=== PATIENT | female | born 1945 | race Caucasian/White ===

== ENCOUNTER 2019-02-24 06:48 | Observation (INO) | payer OTHER ==
--- OUTSIDE RECORDS SUMMARY | 2019-02-24 06:57 | XMS REPORT ---
:1945 Author Organization [facility] Address [address] [place] [address] Dr. Tocsano [address] [place] [id number] Care Team Providers Name Role Phone Unavailable Unavailable Unavailable Problems This patient has no known problems. Allergies, Adverse Reactions, Alerts This patient has no known allergies or adverse reactions. Medications This patient has no known medications.
[2019-02-24] MEDS ORDERED: ALBUTEROL 2.5 MG/3 ML NEB SOL ONE (07:19)
[2019-02-24] MEDS ORDERED: METHYLPREDNISOLONE 40 MG INJ ONE (07:20)
[2019-02-24] MEDS ORDERED: IPRATROPIUM BROM 0.5MG/2.5ML ONE (07:20)
--- NOTE | 2019-02-24 07:48 | EKG ---
Test Date: 2019-02-24 Test Time: 07:22:43 Rn House Supervisor: YARIEL MEASUREMENT RESULTS: Intervals: Rate: 75 MO: 148 QRSD: 72 QT: 408 QTc: 455 [place]: P: 46 MO: 148 QRS: 35 T: 81 INTERPRETIVE STATEMENTS: Normal sinus rhythm Nonspecific ST and T wave abnormality Abnormal ECG No previous ECG available for comparison Electronically Signed On 02-24-19 07:48:24 CDT by Jesus Lowery
[2019-02-24 08:14] LABS: ALT/SGPT 85 U/L (12-78); AST/SGOT 53 U/L (15-37); Absolute Lymphocytes (CBC) 1.3 K/uL (0.7-4.9); Absolute Monocytes 0.7 K/uL (0.1-1.3); Absolute Neutrophil 5.9 K/uL (1.8-8.0); Albumin 3.3 g/dL (3.4-5.0); Alkaline Phosphatase 95 U/L (45-117); BUN Blood Urea Nitrogen 26 mg/dL (7-18); Basophils % 0.6 % (0-1.3); Bicarbonate 24 mmol/L (21-32); Bilirubin Direct 0.2 mg/dL (0-0.2); Bilirubin Total 0.7 mg/dL (0.2-1.0); Eosinophils % 2.7 % (0-4.4); Glucose Level 87 mg/dL (74-106); Lymphocytes % 16.2 % (15.3-44.8); Magnesium 2.1 mg/dL (1.8-2.4); Monocytes % 9.1 % (3.3-12.3); NT PRO-BNP 8962 pg/mL (<125); Protein, Total 6.8 g/dL (6.4-8.2); RBC Red Blood Cell Count 3.66 M/uL (3.86-4.86); Sodium Level 133 mmol/L (136-145); Troponin (Emerg Dept Use Only) < 0.02 ng/mL (0.0-0.045)
[2019-02-24 08:17] LABS: Protime INR 1.12
--- NOTE | 2019-02-24 08:20 | RAD REPORT ---
EXAM DESCRIPTION: US - Extrem Venous W Compress Tomi - 02/24/2019 7:41 am CLINICAL HISTORY: SWELLING Bilateral leg edema and swelling. COMPARISON: No comparisons TECHNIQUE: Real-time sonographic interrogation of the left and right lower extremity deep venous sys tems was performed. FINDINGS: Normal compressibility, flow augmentation, phasic flow and spontaneous flow is identified in both the left and right lower extremity deep venous systems. IMPRESSION: No sonographic evidence of left or right lower extremity deep venous thrombosis.
[2019-02-24] MEDS ORDERED: FUROSEMIDE 20 MG/ 2ML VIAL ONE (08:54)
--- NOTE | 2019-02-24 08:56 | RAD REPORT ---
EXAM DESCRIPTION: RAD - Chest Single View - 02/24/2019 8:30 am CLINICAL HISTORY: SOB Chest pain. COMPARISON: Chest Pa And Lat (2 Views) dated 02/17/2019; Chest Pa And Lat (2 Views) dated 12/02/2018; C hest Pa And Lat (2 Views) dated 11/04/2018; Chest Pa And Lat (2 Views) dated 10/15/2018 FINDINGS: Portable technique limits examination quality. Moderate bilateral pulmonary opacities are present with small bilateral pleural effusions. The heart is mildly prominent size. The findings may indicate CHF/volume overload.
--- NOTE | 2019-02-24 09:31 | RAD REPORT ---
EXAM DESCRIPTION: CT - Chest For Pe Angio - 02/24/2019 8:57 am CLINICAL HISTORY: Chest pain. SOB COMPARISON: No comparisons TECHNIQUE: CT angiogram of the pulmonary arteries was performed with MIP. All CT scans are performed using dose optimization technique as appropriate and may include automated exposure control or mA/KV adjustment according to patient size. FINDINGS: No evidence of pulmonary thromboembolism. The thoracic aorta is suboptimally contrast opacified. Moderate bilateral pulmonary opacities with ground-glass characteristics as well as interlobular sept al thickening inferiorly noted. Moderate bilateral pleural effusions. No concerning bony finding. IMPRESSION: No evidence of pulmonary thromboembolism. Moderate CHF versus volume overload pattern.
--- NOTE | 2019-02-24 10:41 | ER ---
Nurse's Notes [facility] Name: Gabbie Rich Age: 73 yrs Sex: Female : 1945 Arrival Date: 02/24/2019 Time: 06:50 Bed 7 Private MD: Harjit Jefferson Diagnosis: Dyspnea;Unspecified combined systolic (congestive) and diastolic (congestive) heart failure;Pleural effusion, not elsewhere classified-bilateral Presentation: 02/24 06:59 Presenting complaint: Patient states: Pt reports she has been short of breath for the ea past three months. Pt reports she saw Dr. Lowery yesterday, reported symptoms started this AM. Transition of care: patient was not received from another setting of care. Onset of symptoms was February 24, 2019. Risk Assessment: Do you want to hurt yourself or someone else? Patient reports no desire to harm self or others. Initial Sepsis Screen: Does the patient meet any 2 criteria? No. Patient's initial sepsis screen is negative. Does the patient have a suspected source of infection? No. Patient's initial sepsis screen is negative. Care prior to arrival: None. 06:59 Method Of Arrival: Wheelchair ea 06:59 Acuity: SENAIT 3 ea Triage Assessment: 07:07 General: Appears uncomfortable, Behavior is calm, cooperative, appropriate for age. ea Pain: Denies pain. Respiratory: Reports shortness of breath Onset: The symptoms/episode began/occurred today, the patient has moderate shortness of breath. Historical: - Allergies: 07:06 No Known Allergies; ea - Home Meds: 07:57 Advair Diskus 100-50 mcg/dose inhalation dsdv 1 puff [Active]; ropinirole 2 mg oral tab tw2 1 tab per day [Active]; levothyroxine 50 mcg tab 1 tab once daily [Active]; Aleve 220 mg Oral tab 1 tab every 12 hours [Active]; metoprolol tartrate 25 mg Oral tab 1 tab once daily [Active]; alendronate 35 mg oral tab 1 tab once wkly [Active]; multivitamin oral tab [Active]; prednisone 10 mg Oral tab 1 tab 3 times per day [Active]; albuterol sulfate 90 mcg/actuation Inhl HFAA 1 puff every 4-6 hours [Active]; - PMHx: 07:06 Hypertension; Hypothyroidism; restless leg syndrome; ea - PSHx: 07:06 right hip replacement; Hysterectomy; ea - Immunization history:: Adult Immunizations up to date. - Social history:: Smoking status: . - Ebola Screening: : No symptoms or risks identified at this time. Screenin:03 Abuse screen: Denies threats or abuse. Nutritional screening: No deficits noted. ea Tuberculosis screening: No symptoms or risk factors identified. Fall Risk None identified. Assessment: 06:55 Reassessment: pt placed on o2 at 2L via nc at this time, will continue to monitor. tw2 06:56 General: Appears in no apparent distress. slender, well groomed, Behavior is calm, tw2 cooperative, appropriate for age. Pain: Denies pain. Neuro: Level of Consciousness is awake, alert, obeys commands, Oriented to person, place, time, situation. Cardiovascular: Heart tones S1 S2 Patient's skin is warm and dry. Rhythm is regular. Cardiovascular: Edema is 2+ to left ankle, left foot, left toes, right ankle, right foot and right toes. Respiratory: Reports shortness of breath at rest on exertion Airway is patent Respiratory effort is even, labored, pursed lip, Respiratory pattern is regular, tachypnea Breath sounds with wheezes bilaterally. GI: No signs and/or symptoms were reported involving the gastrointestinal system. Abdomen is flat, Bowel sounds present X 4 quads. : No signs and/or symptoms were reported regarding the genitourinary system. EENT: No signs and/or symptoms were reported regarding the EENT system. Derm: No signs and/or symptoms reported regarding the dermatologic system. Musculoskeletal: Range of motion: intact in all extremities. 07:51 Reassessment: Patient appears in no apparent distress at this time. Patient and/or tw2 family updated on plan of care and expected duration. Pain level reassessed. 08:45 Reassessment: Patient appears in no apparent distress at this time. Patient and/or tw2 family updated on plan of care and expected duration. Pain level reassessed. 09:29 Reassessment: Patient appears in no apparent distress at this time. No changes from tw2 previously documented assessment. Patient and/or family updated on plan of care and expected duration. Pain level reassessed. 10:20 Reassessment: Patient appears in no apparent distress at this time. No changes from tw2 previously documented assessment. Patient and/or family updated on plan of care and expected duration. Pain level reassessed. 11:33 Reassessment: Patient appears in no apparent distress at this time. Patient and/or tw2 family updated on plan of care and expected duration. Pain level reassessed. Patient is alert, oriented x 3, equal unlabored respirations, skin warm/dry/pink. Patient states feeling better. Patient states symptoms have improved. 12:37 Reassessment: Patient appears in no apparent distress at this time. No changes from tw2 previously documented assessment. Patient is alert, oriented x 3, equal unlabored respirations, skin warm/dry/pink. Vital Signs: 07:04 BP 166 / 88; Pulse 76; Resp 26; Temp 97.5; Pulse Ox 96% on R/A; Weight 45.36 kg; Height ea 5 ft. (152.40 cm); 07:51 BP 169 / 97; Pulse 79; Resp 24; Pulse Ox 97% on 2 lpm NC; tw2 08:49 BP 158 / 87; Pulse 78; Resp 24; Temp 97.8(TE); Pulse Ox 98% on 2 lpm NC; tw2 09:29 BP 149 / 87; Pulse 74; Resp 22; Pulse Ox 95% on 2 lpm NC; tw2 10:19 BP 134 / 75; Pulse 84; Resp 22; Pulse Ox 97% on 2 lpm NC; em1 11:33 BP 151 / 85; Pulse 84; Resp 17; Pulse Ox 99% on 2 lpm NC; tw2 12:37 BP 147 / 74; Pulse 76; Resp 17; Pulse Ox 95% on 2 lpm NC; tw2 07:04 Body Mass Index 19.53 (45.36 kg, 152.40 cm) ea ED Course: 06:50 Patient arrived in ED. am2 06:50 Harjit Jefferson MD is Private Physician. am2 06:56 [facility] cp 06:56 Olman Cuenca MD is Attending Physician. cp 07:03 Triage completed. ea 07:04 Patient has correct armband on for positive identification. Bed in low position. Call ea light in reach. Adult w/ patient. 07:04 Arm band placed on right wrist. Patient placed in an exam room, on a stretcher, on ea pulse oximetry. 07:05 Maude Klein, RN is Primary Nurse. tw2 07:12 Inserted saline lock: 22 gauge in left antecubital area, using aseptic technique. Blood tw2 collected. 07:14 Radiology exam delayed due to IV insertion attempt and/or patient not having ls3 appropriate IV at this time. 07:42 US Extremity Venous W Compression Tomi In Process Unspecified. EDMS 07:49 Jordy Liu MD is Attending Physician. cp 08:28 XRAY Chest (1 view) In Process Unspecified. EDMS 08:29 X-ray completed. Portable x-ray completed in exam room. Patient tolerated procedure mh1 well. 08:31 Notified ED physician of a critical lab result(s). D-Dimer [id number], notified JEFF Velasquez at tw2 this time. 08:54 CT completed. Patient tolerated procedure well. Patient moved to CT via stretcher. sj Patient moved back from CT. 08:57 CT Chest For PE Angio In Process Unspecified. EDMS 10:39 Harjit Jefferson MD is Hospitalizing Provider. cp 12:03 Awaiting: unsuccessful attempt at calling report at this time. tw2 12:33 No provider procedures requiring assistance completed. Patient admitted, IV remains in tw2 place. Administered Medications: 07:10 Drug: Albuterol - atroVENT (3:1) (2.5 mg - 0.5 mg) 3 ml Route: Nebulizer; tw2 07:52 Follow up: Response: No adverse reaction tw2 07:13 Drug: SOLU-Medrol 60 mg Route: IVP; Site: left antecubital; tw2 07:52 Follow up: Response: No adverse reaction tw2 08:45 Drug: Lasix 20 mg Route: IVP; Site: left antecubital; tw2 11:37 Follow up: Response: No adverse reaction tw2 11:15 Drug: Aspirin Chewable Tablet 324 mg Route: PO; sg 11:34 Follow up: Response: No adverse reaction tw2 Output: 11:00 Urine: 800ml (Voided); Total: 800ml. tw2 Outcome: 10:40 Decision to Hospitalize by Provider. cp 12:35 Admitted to Med/surg accompanied by tech, via wheelchair, room 217, Report called to tw2 VENUS Epstein 12:35 Condition: stable 12:35 Instructed on the need for admit. 12:59 Patient left the ED. lt1 Signatures: Dispatcher [employer] EDMS Zack Mccallum RN RN Christina Park RN RN aa1 Lisa Lombardi mh1 Shu Decker, Celso burleson1 Home Hastings PA PA cp Wise, Tara, RN RN tw2 Chad, Angy am2 Daisy Barba RN RN ea Siler, Lynzie ls3 Browne, Peg lt1 Corrections: (The following items were deleted from the chart) : 07:13 SOLU-Medrol 60 mg IVP in left antecubital aa1 tw2 : 07:10 Albuterol - atroVENT (3:1) (2.5 mg - 0.5 mg) 3 ml Nebulizer aa1 tw2 : 07:12 Inserted saline lock: 22 gauge in left antecubital area, using aseptic technique. tw2 Blood collected. aa10 19: 06:55 General: Appears in no apparent distress. slender, well groomed, Behavior is tw2 calm, cooperative, appropriate for age, aa 06:55 Pain: Denies pain. aa1 tw2 : 06:55 Neuro: Level of Consciousness is awake, alert, obeys commands, Oriented to tw2 person, place, time, situation, aa1 : 06:55 Cardiovascular: Heart tones S1 S2 Patient's skin is warm and dry. Rhythm is tw2 regular aa 06:55 Respiratory: Reports shortness of breath at rest on exertion Airway is patent tw2 Respiratory effort is even, labored, pursed lip, Respiratory pattern is regular, tachypnea Breath sounds with wheezes bilaterally. aa10 19: 06:55 GI: No signs and/or symptoms were reported involving the gastrointestinal system. tw2 Abdomen is flat, Bowel sounds present X 4 quads. aa 06:55 : No signs and/or symptoms were reported regarding the genitourinary system. aa1tw2 : 06:55 Cardiovascular: Edema is 2+ to left ankle, left foot, left toes, right ankle, tw2 right foot and right toes aa 06:55 EENT: No signs and/or symptoms were reported regarding the EENT system. aa1 tw2 07:33 06:55 Derm: No signs and/or symptoms reported regarding the dermatologic system. aa1 tw2 07:33 06:55 Musculoskeletal: Range of motion: intact in all extremities, aa1 tw2 07:58 07:06 Home Meds: Advair Diskus Inhl; ea tw2 08:51 08:50 Initial lab(s) drawn, by me, sent to lab. em1 em1 12:38 07:51 Reassessment: Patient appears in no apparent distress at this time. Patient tw2 and/or family updated on plan of care and expected duration. Pain level reassessed. Patient is alert, oriented x 3, equal unlabored respirations, skin warm/dry/pink. tw2 12: 08:45 Reassessment: Patient appears in no apparent distress at this time. Patient tw2 and/or family updated on plan of care and expected duration. Pain level reassessed. Patient is alert, oriented x 3, equal unlabored respirations, skin warm/dry/pink. tw2 09:29 Reassessment: Patient appears in no apparent distress at this time. No changes tw2 from previously documented assessment. Patient and/or family updated on plan of care and expected duration. Pain level reassessed. Patient is alert, oriented x 3, equal unlabored respirations, skin warm/dry/pink. tw2 : 10:20 Reassessment: Patient appears in no apparent distress at this time. No changes tw2 from previously documented assessment. Patient and/or family updated on plan of care and expected duration. Pain level reassessed. Patient is alert, oriented x 3, equal unlabored respirations, skin warm/dry/pink. tw2
--- NOTE | 2019-02-24 10:42 | EDPHYS ---
Physician Documentation [facility] Name: Gabbie Rich Age: 73 yrs Sex: Female : 1945 Arrival Date: 02/24/2019 Time: 06:50 Bed 7 Private MD: Harjit Jefferson ED Physician Jordy Liu HPI: 02/24 07:05 This 73 yrs old Female presents to ER via Wheelchair with complaints of cp Breathing Difficulty. 07:05 The patient has shortness of breath at rest, while talking. Onset: The symptoms/episode cp began/occurred gradually, and became worse last night. Duration: The symptoms are continuous, and are steadily getting worse. The patient's shortness of breath is aggravated by talking. Associated signs and symptoms: Pertinent negatives: productive cough, diaphoresis, fever, hemoptysis, numbness in extremities, vomiting. Severity of symptoms: in the emergency department the symptoms are unchanged despite home interventions. The patient has experienced similar episodes in the past, a few times, but today's symptoms are worse. The patient has been recently seen by a physician: Dr. Perez with similar presenting complaints, referred to cardiology and was seen by DR Lowery yesterday, but the patient's symptoms have worsened. Historical: - Allergies: 07:06 No Known Allergies; ea - Home Meds: 07:57 Advair Diskus 100-50 mcg/dose inhalation dsdv 1 puff [Active]; ropinirole 2 mg oral tab tw2 1 tab per day [Active]; levothyroxine 50 mcg tab 1 tab once daily [Active]; Aleve 220 mg Oral tab 1 tab every 12 hours [Active]; metoprolol tartrate 25 mg Oral tab 1 tab once daily [Active]; alendronate 35 mg oral tab 1 tab once wkly [Active]; multivitamin oral tab [Active]; prednisone 10 mg Oral tab 1 tab 3 times per day [Active]; albuterol sulfate 90 mcg/actuation Inhl HFAA 1 puff every 4-6 hours [Active]; - PMHx: 07:06 Hypertension; Hypothyroidism; restless leg syndrome; ea - PSHx: 07:06 right hip replacement; Hysterectomy; ea - Immunization history:: Adult Immunizations up to date. - Social history:: Smoking status: . - Ebola Screening: : No symptoms or risks identified at this time. ROS: 07:10 Constitutional: Negative for body aches, chills, fever, poor PO intake. cp 07:10 Eyes: Negative for injury, pain, redness, and discharge. cp 07:10 ENT: Negative for drainage from ear(s), ear pain, sore throat, difficulty swallowing, difficulty handling secretions. 07:10 Cardiovascular: Positive for edema, Negative for chest pain, palpitations. 07:10 Respiratory: Positive for shortness of breath, at rest. Negative for cough, hemoptysis, wheezing. 07:10 Abdomen/GI: Negative for abdominal pain, nausea, vomiting, and diarrhea, constipation, black/tarry stool, rectal bleeding. 07:10 Back: Negative for pain at rest, pain with movement. 07:10 : Negative for urinary symptoms. 07:10 Skin: Negative for cellulitis, rash. 07:10 Neuro: Negative for altered mental status, headache, weakness. 07:10 All other systems are negative. Exam: 07:15 Constitutional: The patient appears in no acute distress, alert, awake, cp non-diaphoretic, non-toxic, well developed, well nourished, uncomfortable. 07:15 Head/Face: Normocephalic, atraumatic. cp 07:15 Eyes: Periorbital structures: appear normal, Pupils: equal, round, and reactive to light and accomodation, Extraocular movements: intact throughout, Conjunctiva: normal, no exudate, no injection, Sclera: no appreciated abnormality, Lids and lashes: appear normal, bilaterally. 07:15 ENT: External ear(s): are unremarkable, Ear canal(s): are normal, clear, TM's: bulging, is not appreciated, bilaterally, dullness, bilaterally, erythema, is not appreciated, bilaterally, Nose: is normal, Mouth: Lips: moist, Oral mucosa: pink and intact, moist, Posterior pharynx: is normal, airway is patent, no erythema, no exudate. 07:15 Neck: ROM/movement: is normal, is supple, without pain, no range of motions limitations, no meningismus, no nuchal rigidity. 07:15 Chest/axilla: Inspection: normal, Palpation: is normal, no crepitus, no tenderness. 07:15 Cardiovascular: Rate: normal, Rhythm: regular, Edema: ankle edema, that is mild, JVD: is not appreciated. 07:15 Respiratory: the patient does not display signs of respiratory distress, Respirations: labored breathing, that is mild, intercostal retractions, are absent, tachypnea, that is mild, Breath sounds: decreased breath sounds, that are moderate, throughout, stridor, is not appreciated, wheezing: that is mild, is heard diffusely, Respiratory rate: 26 07:15 Abdomen/GI: Inspection: abdomen appears normal, Bowel sounds: active, all quadrants, Palpation: abdomen is soft and non-tender, in all quadrants, rebound tenderness, is not appreciated, voluntary guarding, is not appreciated, involuntary guarding, is not appreciated. 07:15 Back: pain, is absent, ROM is normal. 07:15 Skin: cellulitis, is not appreciated, no rash present. 07:15 Neuro: Orientation: to person, place \T\ time. Mentation: is normal, Cerebellar function: is grossly normal, Motor: moves all fours, strength is normal, Sensation: is normal. 07:31 ECG was reviewed by the Attending Physician. cp Vital Signs: 07:04 BP 166 / 88; Pulse 76; Resp 26; Temp 97.5; Pulse Ox 96% on R/A; Weight 45.36 kg; Height ea 5 ft. (152.40 cm); 07:51 BP 169 / 97; Pulse 79; Resp 24; Pulse Ox 97% on 2 lpm NC; tw2 08:49 BP 158 / 87; Pulse 78; Resp 24; Temp 97.8(TE); Pulse Ox 98% on 2 lpm NC; tw2 09:29 BP 149 / 87; Pulse 74; Resp 22; Pulse Ox 95% on 2 lpm NC; tw2 10:19 BP 134 / 75; Pulse 84; Resp 22; Pulse Ox 97% on 2 lpm NC; em1 11:33 BP 151 / 85; Pulse 84; Resp 17; Pulse Ox 99% on 2 lpm NC; tw2 12:37 BP 147 / 74; Pulse 76; Resp 17; Pulse Ox 95% on 2 lpm NC; tw2 07:04 Body Mass Index 19.53 (45.36 kg, 152.40 cm) ea MDM: 07:02 Patient medically screened. cp 09:39 Data reviewed: vital signs, nurses notes, lab test result(s), EKG, radiologic studies, cp CT scan, plain films, ultrasound. 09:40 Physician consultation: Harjit Jefferson MD was called at 09:40, left message on cp voicemail. 10:13 Physician consultation: Harjit Jefferson MD was called at 10:14, left message on cp voicemail. 10:38 Physician consultation: Harjit Jefferson MD was contacted at 10:38, regarding admission, cp to the telemetry unit. patient's condition, and will see patient in inpatient room, later today. 02/24 07:03 Order name: Basic Metabolic Panel cp 02/24 07:03 Order name: CBC with Diff cp 02/24 07:03 Order name: LFT's; Complete Time: 08:33 cp 02/24 08:33 Interpretation: Normal except: AST 53; ALT 85; ALB 3.3; A/G 0.9. 02/24 07:03 Order name: Magnesium; Complete Time: 08:33 cp 02/24 07:03 Order name: NT PRO-BNP; Complete Time: 08:33 cp 02/24 07:03 Order name: PT-INR; Complete Time: 08:33 cp 02/24 07:03 Order name: Troponin (emerg Dept Use Only); Complete Time: 08:33 cp 02/24 07:03 Order name: XRAY Chest (1 view); Complete Time: 09:14 cp 02/24 07:03 Order name: US Extremity Venous W Compression Tomi; Complete Time: 08:33 cp 02/24 07:04 Order name: D-Dimer; Complete Time: 08:33 cp 02/24 07:05 Order name: Basic Metabolic Panel; Complete Time: 08:33 EDMS 02/24 07:05 Order name: CBC with Automated Diff; Complete Time: 08:33 EDMS 02/24 08:33 Interpretation: Normal except: RBC 3.66; HGB 9.1; HCT 29.0; MCV 79.2; MCH 25.0; MCHC cp 31.5; PLT 472; RDW 19.6. 02/24 10:55 Order name: Troponin I EDMS 02/24 10:55 Order name: Troponin I EDNV 02/24 07:03 Order name: EKG; Complete Time: 07:05 cp 02/24 07:03 Order name: Cardiac monitoring; Complete Time: 07:07 cp 02/24 07:03 Order name: EKG - Nurse/Tech; Complete Time: 07:21 cp 02/24 07:03 Order name: IV Saline Lock; Complete Time: 07:21 cp 02/24 07:03 Order name: Labs collected and sent; Complete Time: 07:21 cp 02/24 07:03 Order name: O2 Per Protocol; Complete Time: 07:06 cp 02/24 07:03 Order name: O2 Sat Monitoring; Complete Time: 07:06 cp 02/24 08:37 Order name: CT Chest For PE Angio; Complete Time: 09:38 cp 02/24 10:56 Order name: CONS Physician Consult EDNV 02/24 10:56 Order name: Low Sodium EDNV 02/24 10:56 Order name: Echo with Doppler EDNV 02/24 10:56 Order name: EKG Electrocardiogram EDMS EC:31 Rate is 75 beats/min. Rhythm is regular. MT interval is normal. QRS interval is normal. cp QT interval is normal. Interpreted by me. Reviewed by me. Administered Medications: 07:10 Drug: Albuterol - atroVENT (3:1) (2.5 mg - 0.5 mg) 3 ml Route: Nebulizer; tw2 07:52 Follow up: Response: No adverse reaction tw2 07:13 Drug: SOLU-Medrol 60 mg Route: IVP; Site: left antecubital; tw2 07:52 Follow up: Response: No adverse reaction tw2 08:45 Drug: Lasix 20 mg Route: IVP; Site: left antecubital; tw2 11:37 Follow up: Response: No adverse reaction tw2 11:15 Drug: Aspirin Chewable Tablet 324 mg Route: PO; sg 11:34 Follow up: Response: No adverse reaction tw2 Disposition: 15:12 Co-signature as Attending Physician, Jordy Liu MD. rn Disposition: 02/24/19 10:40 Hospitalization ordered by Harjit Jefferson for Inpatient Admission. Preliminary diagnosis are Dyspnea, Unspecified combined systolic (congestive) and diastolic (congestive) heart failure, Pleural effusion, not elsewhere classified - bilateral. - Bed requested for Telemetry/MedSurg (Inpatient). - Status is Inpatient Admission. lt1 - Condition is Stable. - Problem is new. - Symptoms have improved. UTI on Admission? No Signatures: Dispatcher [employer] EDMS Zack Mccallum, RN VENUS Christina Park RN RN aa1 Jordy Liu MD MD rn Calderon, Audri RN RN aa5 Home Hastings PA PA Maude Moody RN RN tw2 Daisy Barba RN RN ea Browne, Peg lt1 Corrections: (The following items were deleted from the chart) 07:58 07:06 Home Meds: Advair Diskus Inhl; ea tw2 11:59 10:40 Hospitalization Ordered by Harjit Jefferson MD for Inpatient Admission. Preliminary aa5 diagnosis is Dyspnea; Unspecified combined systolic (congestive) and diastolic (congestive) heart failure; Pleural effusion, not elsewhere classified - bilateral. Bed requested for Telemetry/MedSurg (Inpatient). Status is Inpatient Admission. Condition is Stable. Problem is new. Symptoms have improved. UTI on Admission? No. cp 12:59 11:59 02/24/2019 10:40 Hospitalization Ordered by Harjit Jefferson MD for Inpatient lt1 Admission. Preliminary diagnosis is Dyspnea; Unspecified combined systolic (congestive) and diastolic (congestive) heart failure; Pleural effusion, not elsewhere classified - bilateral. Bed requested for Telemetry/MedSurg (Inpatient). Status is Inpatient Admission. Condition is Stable. Problem is new. Symptoms have improved. UTI on Admission? No. aa5
[2019-02-24] MEDS ORDERED: ASPIRIN 81 MG CHEWABLE TABLET ONE (11:22)
--- NOTE | 2019-02-24 14:55 | ECHO ---
HEIGHT: 5 ft 0 in WEIGHT: 101 lb 1.6 oz DATE OF STUDY: 02/24/[address]: Jesus Lowery MD 2-DIMENSIONAL: YES M.MODE: YES DOPPLER: YES COLOR FLOW: YES TDS: NO PORTABLE: NO DEFINITY: NO BUBBLE STUDY: NO DIAGNOSIS: CONGESTIVE HEART FAILURE CARDIAC HISTORY: CATHERIZATION: NO SURGERY: NO PROSTHETIC VALVE: NO PACEMAKER: NO MEASUREMENTS (cm) DIASTOLIC (NORMALS) SYSTOLIC (NORMALS) IVSd 0.9 (0.6-1.2) LA Diam 3.5 (1.9-4.0) LVEF 43% LVIDd 4.1 (3.5-5.7) LVIDs 3.2 (2.0-3.5) %FS 21% LVPWd 1.0 (0.6-1.2) Ao Diam 2.9 (2.0-3.7) 2 DIMENSIONAL ASSESSMENT: RIGHT ATRIUM: DILATED LEFT ATRIUM: DILATED RIGHT VENTRICLE: DILATED LEFT VENTRICLE: NORMAL TRICUSPID VALVE: NORMAL MITRAL VALVE: NORMAL PULMONIC VALVE: NORMAL AORTIC VALVE: NORMAL PERICARDIAL EFFUSION: NONE AORTIC ROOT: NORMAL LEFT VENTRICULAR WALL MOTION: MILD GLOBAL HYPOKINESIS. DOPPLER/COLOR FLOW: MILD MITRAL REGURGITATION. MODERATE TRICUSPID REGURGITATION. ESTIMATED RIGHT VENTRICULAR SYSOLIC PRESSURE 52mmHg. MODERATE PULMONARY HYPERTENSION. COMMENTS: MILDY DEPRESSED LEFT VENTRICULAR EJECTION FRACTION. DILATED LEFT ATRIUM, RIGHT ATRIUM AND RIGHT VENTRICLE. MILD MITRAL REGURGITATION. MODERATE TRICUSPID REGURGITATION. MODERATE PULMONARY HYPERTENSION. TECHNOLOGIST: Maya MACIAS
[2019-02-24] MEDS: ALBUTEROL 2.5 MG/3 ML NEB SOL NEB SCH ×2 (15:50→20:00)
[2019-02-24] MEDS: IPRATROPIUM BROM 0.5MG/2.5ML NEB SCH ×2 (15:50→20:00)
--- NOTE | 2019-02-24 16:14 | CON ---
History Of Present Illness: Ms. Rich is 73. She came to the hospital because of shortness of b reath. Her shortness of breath has been present since September 2018. There was 1 instance of pneumo jason and since then she has never really recovered. The bacterial infection seems to have been treate d, but there is scarring in the lungs in the area of the old pneumonia and some scarring elsewhere, i nterstitial markings that are sometimes called edema by the radiologists, but could also be interstit ial fibrosis. The patient has never been a cigarette smoker. She has mild lung disease most of her life, now it is very severe. She has been unable to breathe for 4 months or longer. I do not know i f she has ever had testing to see if she had alpha 1 antitrypsin deficiency, but her lungs really loo ks like typical emphysematous type lungs. There is hyperinflation, flattened diaphragms, and a diffu se interstitial pattern that could of course be interstitial fluid, but that might also be fibrosis. Last night she came in because her breathing was worse. She got frightened. She did not require in tubation and looks very much like she did when I saw her in the office a few days ago. Since she has been here her chest x-ray shows the findings we have discussed. The troponin is normal. She is ane nabeel. Her hemoglobin is 9.1, seems to be a microcytosis. MCV is 79.2. Her platelet count is elevate d. All consistent with iron deficiency anemia. N-terminal proBNP is elevated at 8962. Creatinine i s 0.94. SGOT and SGPT are both mildly elevated, perhaps suggestive of passive hepatic congestion fro m right heart failure. Social History: The patient does not use tobacco, alcohol, or illegal drugs. Outpatient Medications: Have consisted mostly of numerous bronchodilators and pulmonary anti-inflamm atory medications. Physical Examination: General: She has a small body habitus. She is thin, but not emaciated. Lungs: Reveal all bronchial type breath sounds. I do not hear any wheezing. No stridor. Abdomen: Soft. No organomegaly, mass, tenderness, or bruit. Extremities: Trace edema. Past History: She has had a previous hysterectomy and right hip replacement. She has hypothyroidism , restless legs syndrome, hypertension. Outpatient Medications: Advair Diskus, levothyroxine, Aleve, alendronate, prednisone, and albuterol. Laboratory Data: An electrocardiogram shows nonspecific ST-T wave abnormality, sinus rhythm. Impression: The patient may have pulmonary hypertension and right heart failure. I think we need to repeat an echocardiogram. An echocardiogram from 7 months ago showed normal ejection fraction, that was before she had all of these symptoms, and I wonder if she has developed pulmonary fibrosis and p ulmonary hypertension explaining her symptoms. A CT angio of the chest was negative for pulmonary em bolus. Extremity venous study was negative for deep vein thrombosis. We can do a pharmacologic nucl ear stress test tomorrow to make sure her symptoms are not due to CAD, that seems less likely than th e possibility of whatever pulmonary disease she has causing pulmonary hypertension and right heart fa alycia. BUCK/DANY Voice ID: [id number] Report ID: [id number]
[2019-02-24] MEDS: FUROSEMIDE 20 MG/ 2ML VIAL IV SCH (16:50)
[2019-02-25] MEDS: ALBUTEROL 2.5 MG/3 ML NEB SOL NEB SCH ×4 (02:00→19:45)
[2019-02-25] MEDS: IPRATROPIUM BROM 0.5MG/2.5ML NEB SCH ×4 (02:00→19:45)
[2019-02-25 05:24] LABS: Absolute Lymphocytes (CBC) 0.7 K/uL (0.7-4.9); Absolute Monocytes 0.7 K/uL (0.1-1.3); Absolute Neutrophil 5.3 K/uL (1.8-8.0); Basophils % 0.3 % (0-1.3); Hematocrit 26.7 % (36.0-45.0); MPV 7.7 fL (7.6-11.3); Monocytes % 10.9 % (3.3-12.3); RBC Red Blood Cell Count 3.52 M/uL (3.86-4.86)
[2019-02-25 05:41] LABS: Potassium 3.6 mmol/L (3.5-5.1)
[2019-02-25] MEDS ORDERED: LEVOTHYROXINE SOD 0.075 MG TAB PO SCH (06:30)
[2019-02-25] MEDS ORDERED: HOME MED 1 EA UNK (Ropinirole Hcl [Ropinirole Hcl] 2 MG) PO SCH (09:00)
[2019-02-25] MEDS: ROPINIROLE HCL 1 MG TAB PO SCH ×2 (09:00→11:04)
[2019-02-25] MEDS: ASPIRIN 81 MG CHEWABLE TABLET PO SCH ×2 (09:00→11:04)
[2019-02-25] MEDS: FUROSEMIDE 20 MG/ 2ML VIAL IV SCH ×3 (09:00→17:36)
[2019-02-25] MEDS: METOPROLOL TAR 25 MG TAB PO SCH ×2 (09:00→11:03)
[2019-02-25] MEDS ORDERED: REGADENOSON 0.4 MG/5 ML SYR IV ONE (09:16)
--- NOTE | 2019-02-25 11:31 | RAD REPORT ---
EXAM DESCRIPTION: NM - Rest Stress Cardiac Imaging - 02/25/2019 11:20 am CLINICAL HISTORY: CHEST PAIN Chest pain. COMPARISON: Chest Pa And Lat (2 Views) dated 05/11/2018 TECHNIQUE: The patient was administered approximately 10mCi of Tc 99m Sestamibi prior to resting SPE CT imaging of the heart. The patient was then administered approximately 30 mCi of Tc 99m Sestamibi f ollowing exercise or pharmacologic stress. Multiplanar SPECT images were reviewed. FINDINGS: No stress induced ischemic defect is seen to suggest stress induced ischemia. Along the in ferior wall near the apex an area of diminished radiopharmaceutical accumulation on both rest and str ess is seen likely representing scar tissue. The end diastolic volume is 70 ml, the end systolic volume is 39 ml, and the ejection fraction is 44 %. IMPRESSION: No stress induced ischemia.
--- NOTE | 2019-02-25 13:29 | RAD REPORT ---
EXAM DESCRIPTION: Charlie Pa And Lat (2 Views)02/25/2019 1:20 pm CLINICAL HISTORY: Shortness of breath COMPARISON: February 24 FINDINGS: Small to moderate bilateral pleural effusions are present. The heart is borderline enlarg ed. Partial resolution in mild bilateral pulmonary opacities IMPRESSION: Partial resolution in pulmonary edema
--- NOTE | 2019-02-25 13:44 | TREADPHA ---
DX: CHEST PAIN Date of Study: 02/25/19 Ht: 5 0 Wt: 95 lb 4.8 oz Consulting Physician: GRETEL MEDICATIONS: PROVENTIL, LASIX, SYNTHROID, LOPRESSOR. HISTORY: 73 YEAR FEMALE WITH COMPLAINTS OF CHEST PAIN. HISTORY: HYPERTENSION, HYPOTHYROIDISM, RESSLESS LEG SYNDROME. PHYSICIAL EXAMINATION: RESTING B.P.: 160/91 RESTING H.R.: 84 RESTING EKG: NORMAL PROTOCOL: LEXISCAN EXERCISE TIME: 3:30 B.P. AT PEAK STRESS: 150/75 IMPRESSION: LEXISCAN INJECTED, FOLLOWED BY CARDIOLITE PER PROTOCOL, SEE NUCLEAR MEDICINE REPORT. NO SUPRAVENTRICULAR TACHYCARDIA, VENTRICULAR TACHYCARDIA, OR PREMATURE VENTRICULAR COMPLEXS. ONE PREMATURE ATRIAL COMPLEXS IN RECOVERY. PATIENT REPORTED NO CHEST PAIN.
--- NOTE | 2019-02-25 14:03 | P.CNS ---
Date of Consult: 02/25/19 Reason for Consult: Bilateral pleural effusions Chief Complaint: Shortness of breath History of Present Illness: Patient is 73 years of age well known to me admitted with acute onset of shortness of breath with lower extremity edema became worse suddenly patient became afraid came to the emergency room was found to be in congestive heart failure with bilateral pleural effusions no evidence of cardiac ischemia patient was diuresed and is doing much better denies any fever chills cough sputum hemoptysis or chest pain has some shortness of breath before and is on Advair Allergies No Known Allergies Allergy (Unverified 08/24/17 04:29) Home Medications: Albuterol Inhaler [Ventolin Inhaler] 2 puff IH Q6H PRN 02/24/19 Alendronate Sodium 35 mg PO SEECOM 02/24/19 Fluticasone/Salmeterol [Advair 250-50 Diskus] 1 each IH BEDTIME 02/24/19 Levothyroxine Sodium 50 mcg PO DIRECTED 02/24/19 Levothyroxine Sodium 75 mcg PO DIRECTED 02/24/19 Metoprolol Tartrate [Lopressor] 25 mg PO DAILY 02/24/19 Naproxen Sodium [Aleve] 220 mg PO BEDTIME 02/24/19 Ropinirole HCl 2 mg PO DAILY 02/24/19 - Past Medical/Surgical History Diabetic: No -: hypertension -: hypothyroid - Family History Father History Unknown: Yes Mother Medical History: Heart disease, Stroke - Social History Alcohol use: Yes CD- Drugs: No Caffeine use: No Place of Residence: Home Review of Systems 10-point ROS is otherwise unremarkable General: Weakness Respiratory: Shortness of Breath Physical Examination Temp Pulse Resp BP Pulse Ox 97.3 F 90 16 141/65 H 96 02/25/19 12:00 02/25/19 12:00 02/25/19 12:00 02/25/19 12:00 02/25/19 12:00 General: Alert, Oriented x3 HEENT: Atraumatic Neck: Supple Respiratory: Clear to auscultation bilaterally Cardiovascular: No edema, Regular rate/rhythm - Problems (1) Congestive heart failure (CHF) Current Visit: Yes Status: Acute Plan: Patient is 73 years of age admitted with acute on chronic shortness of breath I strongly suspect is a combination of systolic and diastolic dysfunction patient clearly has bilateral pleural effusion recent chest x-ray shows a significant improvement no indication for thoracentesis no evidence of thromboembolism or DVT at this time I recommend Abhilash inhibitors diuretics and possible beta- blockers oxygenation satisfactory possible discharge home tomorrow patient is doing much better oxygenation is back to normal I have added low-dose lisinopril at night discharge tomorrow on lisinopril and Lasix continue with other medications Qualifiers: Heart failure type: combined systolic and diastolic
--- NOTE | 2019-02-25 20:03 | PN ---
Date of Progress Note: 02/25/2019 Subjective: Ms. Rich has been followed by Dr. Jefferson and Dr. Lowery for possible right-sided c ongestive heart failure. She has significant pulmonary fibrosis. An ejection fraction that was done yesterday showed an ejection fraction of 43% with moderate pulmonary hypertension. She is feeling b kimberly, breathing better, has diuresed significantly. Lexiscan is still pending. We will continue pr esent regimen. PAMELA/DANY Voice ID: [id number] Report ID: [id number]
[2019-02-25] MEDS: LISINOPRIL 5 MG TAB PO SCH (20:15)
--- NOTE | 2019-02-25 21:24 | PN ---
Date of Progress Note: 02/25/2019 The patient feels much better today. She has lost a significant amount of weight with decrease in th e edema as well. States her breathing is much better, still also feels much more comfortable using t he nebulizers and the hand-held inhaler she has been using at home. Her iron is not definitively low . The evaluation of the anemia can be continued on an outpatient basis. Her stress test was normal and chest x-ray showed slight improvement confirming the CHF diastolic dysfunction with some systolic . She probably could be discharged tomorrow to continue on her beta-betzaida with the addition of the Lasix, Abhilash, and iron. Follow up with myself and probable referral to a surgeon/president for endos copic procedures. HR/MODL Voice ID: [id number] Report ID: [id number]
[2019-02-26] MEDS: IPRATROPIUM BROM 0.5MG/2.5ML NEB SCH ×4 (01:35→20:00)
[2019-02-26] MEDS: ALBUTEROL 2.5 MG/3 ML NEB SOL NEB SCH ×4 (01:35→20:00)
[2019-02-26] MEDS: ROPINIROLE HCL 1 MG TAB PO SCH (03:36)
[2019-02-26] MEDS ORDERED: LEVOTHYROXINE SOD 0.05 MG TABLET PO SCH (06:30)
[2019-02-26] MEDS: ASPIRIN 81 MG CHEWABLE TABLET PO SCH (07:47)
[2019-02-26] MEDS: METOPROLOL TAR 25 MG TAB PO SCH (07:47)
[2019-02-26] MEDS: FUROSEMIDE 20 MG/ 2ML VIAL IV SCH ×2 (07:48→16:41)
--- NOTE | 2019-02-26 13:10 | PN ---
Subjective: Ms. 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 She is feeling much better with diuresis and JEFE inhibitors. I believe she could be discharged home fairly soon. BUCK/DANY Voice ID: [id number] Report ID: [id number]
--- NOTE | 2019-02-26 14:43 | RAD REPORT ---
EXAM DESCRIPTION: RAD - Chest Pa And Lat (2 Views) - 02/26/2019 2:34 pm CLINICAL HISTORY: chf/pleuraleffusions Chest pain. COMPARISON: Chest Pa And Lat (2 Views) dated 02/25/2019; Chest Single View dated 02/24/2019; Chest Pa And Lat (2 Views) dated 02/17/2019; Chest Pa And Lat (2 Views) dated 12/02/2018 FINDINGS: Since the 02/25/2019 comparative study, bilateral pleural effusions have mildly improved. Lung aeration has also mildly improved. Small pleural effusions persist. The heart is mildly enlarged in size. No displaced fractures. IMPRESSION: Mild improvement in lung aeration since comparative study.
--- NOTE | 2019-02-26 18:01 | PN ---
Date of Progress Note: 02/26/2019 The patient states she feels somewhat better today. She has been walking. She has lost over 5 pounds . On Lasix IV and Abhilash. Her breathing has improved considerably. We will repeat a chest x-ray in a. m. in anticipation of improvement over the prior one and if so she could be discharged on her present regimen. HR/MODL Voice ID: [id number] Report ID: [id number]
[2019-02-26] MEDS: LISINOPRIL 5 MG TAB PO SCH (20:47)
[2019-02-27] MEDS: ALBUTEROL 2.5 MG/3 ML NEB SOL NEB SCH ×2 (02:00→08:45)
[2019-02-27] MEDS: IPRATROPIUM BROM 0.5MG/2.5ML NEB SCH ×2 (02:00→08:45)
[2019-02-27] MEDS: METOPROLOL TAR 25 MG TAB PO SCH (08:35)
[2019-02-27] MEDS: FUROSEMIDE 20 MG/ 2ML VIAL IV SCH (08:35)
[2019-02-27] MEDS: ASPIRIN 81 MG CHEWABLE TABLET PO SCH (08:35)
[2019-02-27] MEDS: ROPINIROLE HCL 1 MG TAB PO SCH (08:36)
--- NOTE | 2019-02-27 13:02 | PN ---
Ms. Rihc is breathing much better, feels better. It looks like her ideal body weight would be s omewhere close to 90 pounds. I think she should go home on sodium restriction of 2000 mg a day or le ss. BUCK/DANY Voice ID: [id number] Report ID: [id number]
--- NOTE | 2019-02-27 17:05 | PN ---
Date of Progress Note: 02/27/2019 Subjective: The patient feels much better today. She has lost some more weight, over 10 pounds sinc e she has been admitted. Her breathing is back to normal. She feels at baseline. She will be disch arged on her usual medication with the addition of Lasix 20, lisinopril 5, and nebulizers treatments on a p.r.n. basis. Low-iron anemia will be evaluated when she is seen in the office with Rogelio do scoping. She will be seen next week. Final Diagnoses: Acute congestive heart failure, diastolic; hypertension, controlled. HR/MODL Voice ID: [id number] Report ID: [id number]
[2019-03-01] MEDS ORDERED: ALENDRONATE 70 MG TAB PO SCH (07:00)
== END 2019-02-27 13:13 | disposition home or self-care (01) ==
LOC: ER 06:48 → ERHOLD 10:46 → INTOOBSV 10:46 → 2ND 12:41
PROVIDERS: ADMIT Family Medicine; ATTEND Family Medicine
DX: I11.0 Hypertensive heart disease with heart failure (principal); I50.31 Acute diastolic (congestive) heart failure; I27.20 Pulmonary hypertension, unspecified; J84.10 Pulmonary fibrosis, unspecified; J90 Pleural effusion, not elsewhere classified; I08.1 Rheumatic disorders of both mitral and tricuspid valves; E03.9 Hypothyroidism, unspecified; Z79.51 Long term (current) use of inhaled steroids; Z79.52 Long term (current) use of systemic steroids; Z79.1 Long term (current) use of non-steroidal anti-inflammatories (NSAID); Z79.899 Other long term (current) drug therapy; Z87.01 Personal history of pneumonia (recurrent)
CPT/HCPCS: 93005; 93017; 93306; 85025 ×2; 80048 ×2; 36415 ×2; 83735; 85610; 85379; 80076; 84484 ×3; 83540; 83880 ×2; 84466; 71275; 71045; 71046 ×2; 93970; 94640; 78452; 96375; 96374; 99285; Q9967; J1940 ×7; J2785; J2920; A9500; G0378 ×2

== ENCOUNTER 2019-04-27 06:20 | Day surgery (SDC) | payer OTHER ==
--- OUTSIDE RECORDS SUMMARY | 2019-04-27 06:21 | XMS REPORT ---
:1945 [facility] Address [address] [place] [address] [address] [place] [address] Care Team Providers Name Role Phone Unavailable Unavailable Unavailable Problems This patient has no known problems. Allergies, Adverse Reactions, Alerts This patient has no known allergies or adverse reactions. Medications This patient has no known medications.
[2019-04-27] MEDS ORDERED: Ringers Lactate 1,000 ML IV ONE (06:48)
[2019-04-27] MEDS ORDERED: PROPOFOL 200 MG/20 ML VIAL IV ONE (09:17)
[2019-04-27] MEDS ORDERED: ETOMIDATE 20 MG/10 ML VIAL IV ONE (09:17)
[2019-04-27] MEDS ORDERED: LIDOCAINE 1% MPF 5 ML VIAL ONE (09:17)
[2019-04-27] MEDS ORDERED: EPHEDRINE SULF 50 MG/ML VIAL ONE (09:18)
[2019-04-27] MEDS ORDERED: NS 0.9% VIAL 0 ML ONE (09:18)
--- NOTE | 2019-04-27 09:28 | ENDO RPT ---
[address], [address] COLONOSCOPY PROCEDURE REPORT EXAM DATE: 04/27/2019 PATIENT NAME: Gabbie Rich MR #: [id number] BIRTHDATE: 1945 ATTENDING: Ol[address] STATUS: outpatient ENVIRONMENTAL SERVICES FLOOR TECH: Carol Frank, Reji Prado RN, and Julianna So RN INDICATIONS: The patient is a 73 yr old Female here for a colonoscopy due to iron deficiency anemia PROCEDURE PERFORMED: Colonoscopy MEDICATIONS: Per Anesthesia. ESTIMATED BLOOD LOSS: None CONSENT: The patient understands the risks and benefits of the procedure and understands that these risks include, but are not limited to: sedation, allergic reaction, infection, perforation and/or bleeding. Alternative means of evaluation and treatment include, among others: physical exam, x-rays, and/or surgical intervention. The patient elects to proceed with this endoscopic procedure. DESCRIPTION OF PROCEDURE: During intra-op preparation period all mechanical medical equipment was checked for proper function. Hand hygiene and appropriate measures for infection prevention was taken. Procedure, possible complications, alternatives including, but not limited to possibility of bleeding, perforation, tear, infection, sepsis, need for surgery, need for blood transfusion, were explained to the patient. After the risks, benefits and alternatives of the procedure were thoroughly explained, Informed consent was verified, confirmed and timeout was successfully executed by the treatment team. The patient was placed in the left lateral position. A digital rectal exam was performed and revealed a skin tag. After appropriate level of anesthesia, the scope was passed. The EC-[id number] ([id number]) endoscope was introduced through the anus and advanced to the cecum, which was identified by both the appendix and ileocecal valve. The quality of the prep was fair. The instrument was then slowly withdrawn as the colon was fully examined. Scope withdrawal time was 7 minutes. COLON FINDINGS: Small internal hemorrhoids were found. Retroflexed views revealed small hemorrhoids. The scope was then completely withdrawn from the patient and the procedure terminated. ADVERSE EVENTS: There were no complications. IMPRESSIONS: 1. Small internal hemorrhoids 2. Intubation to cecum RECOMMENDATIONS: fiber rich diet RECALL: for EGD. [address] eSigned: Olman [address] Dr 04/27/2019 9:28 AM cc: Harjit Jefferson CPT CODES: ICD9 CODES: 455.9 Residual hemorrhoidal skin tags PATIENT NAME: Gabbie Rich MR#: [id number]
== END 2019-04-27 10:10 | disposition home or self-care (01) ==
LOC: OR 06:20
PROVIDERS: ATTEND Internal Medicine Gastroenterology
PROC: 0DJD8ZZ Inspection of Lower Intestinal Tract, Via Natural or Artificial Opening Endoscopic (ICD-10-PCS; principal; 2019-04-27 08:15)
DX: D50.9 Iron deficiency anemia, unspecified (principal); K64.8 Other hemorrhoids; K64.4 Residual hemorrhoidal skin tags; I10 Essential (primary) hypertension; Z79.899 Other long term (current) drug therapy
CPT/HCPCS: 45378; 36415; 84132; J2704

== ENCOUNTER 2019-12-24 21:06 | Inpatient (IN) | payer OTHER ==
--- OUTSIDE RECORDS SUMMARY | 2019-12-24 21:09 | XMS REPORT ---
:1945 Author Organization [facility] Address [address] [place] [address] [address] [place] [address] Care Team Providers Name Role Phone Unavailable Unavailable Unavailable Problems This patient has no known problems. Allergies, Adverse Reactions, Alerts This patient has no known allergies or adverse reactions. Medications This patient has no known medications.
[2019-12-24] MEDS ORDERED: IPRATROPIUM BROM 0.5MG/2.5ML ONE (22:49)
[2019-12-24] MEDS ORDERED: LEVALBUTEROL 1.25 MG/3 ML NEB ONE (22:49)
[2019-12-25] MEDS ORDERED: AZITHROMYCIN 500 MG INJ IVPB ONE (00:12)
[2019-12-25] MEDS ORDERED: CEFTRIAXONE/SWI 1gm 1 GM/10 ML SYR ONE (00:12)
[2019-12-25 00:34] LABS: Potassium 3.6 mmol/L (3.5-5.1)
[2019-12-25 00:40] LABS: Basophils % 0.4 % (0-1.3); Hematocrit 35.9 % (36.0-45.0); Lymphocytes % 11.6 % (15.3-44.8); MPV 8.4 fL (7.6-11.3); RBC Red Blood Cell Count 4.54 M/uL (3.86-4.86)
--- NOTE | 2019-12-25 01:01 | ER ---
Nurse's Notes [facility] Name: Gabbie Rich Age: 74 yrs Sex: Female : 1945 Arrival Date: 12/24/2019 Time: 21:[address] Private MD: Harjit Jefferson Diagnosis: Pneumonia, unspecified organism-bilateral Presentation: 12/23 21:41 Chief complaint: Patient states: Shortness of breath, nasal congestions, body aches, aj1 rib pain since, cough. 1800 yesterday. Patient denies fever. Coronavirus screen: The patient has NOT traveled to a country currently being monitored by the [facility] within the last 14 days. Ebola Screen: Patient denies travel to an Ebola-affected area in the 21 days before illness onset. Initial Sepsis Screen: Does the patient meet any 2 criteria? No. Patient's initial sepsis screen is negative. Does the patient have a suspected source of infection? Yes: Productive cough/pneumonia. Risk Assessment: Do you want to hurt yourself or someone else? Patient reports no desire to harm self or others. 21:41 Method Of Arrival: Ambulatory aj1 21:41 Acuity: SENAIT 3 aj1 21:41 Onset of symptoms was December 24, 2019. rr5 Triage Assessment: 21:48 General: Appears in no apparent distress. comfortable, Behavior is calm, cooperative, aj1 appropriate for age. Pain: Denies pain. Neuro: Level of Consciousness is awake, alert, obeys commands. Cardiovascular: Patient's skin is warm and dry. Respiratory: Reports shortness of breath at rest cough that is hacking, persistent Airway is patent Respiratory effort is even, unlabored, Respiratory pattern is regular, symmetrical, Onset: The symptoms/episode began/occurred yesterday, the patient has mild shortness of breath. Historical: - Allergies: 21:48 No Known Allergies; aj1 - Home Meds: 21:48 levothyroxine 75 mcg oral tab 1 tab once daily [Active]; ropinirole 2 mg Oral tab 1 tab aj1 per day [Active]; furosemide 60 mg Oral tab 1 tab once daily [Active]; albuterol sulfate 90 mcg/actuation Inhl HFAA 1 puff every 4-6 hours [Active]; montelukast 10 mg oral tab 1 tab once daily [Active]; Albuterol Nebulizer [Active]; - PMHx: 21:48 Hypothyroidism; Hypertension; restless leg syndrome; pulmonary fibrosis; CHF; aj1 - Immunization history:: Flu vaccine is up to date. - Social history:: Smoking status: Patient denies any tobacco usage or history of. Screenin:37 Abuse screen: Denies threats or abuse. Denies injuries from another. Nutritional rr5 screening: No deficits noted. Tuberculosis screening: No symptoms or risk factors identified. Fall Risk Fall in past 12 months (25 points). IV access (20 points). Total Jacob Fall Scale indicates High Risk Score (45 or more points). Fall prevention measures have been instituted. Side Rails Up X 2 Placed Close to Nursing Station Frequent Obs/Assessments Occuring Family Present and informed to notify staff if the need to leave the bedside As available patient and family educated on Fall Prevention Program and Strategies. Assessment: 22:30 General: Appears in no apparent distress. comfortable, Behavior is calm, cooperative, rr5 appropriate for age. 22:30 Pain: Denies pain. Neuro: Level of Consciousness is awake, alert, obeys commands, rr5 Oriented to person, place, time, situation. Cardiovascular: Capillary refill < 3 seconds Patient's skin is warm and dry. Rhythm is. Respiratory: Reports shortness of breath cough that is nasal congestion Airway is patent Respiratory effort is even, unlabored, Respiratory pattern is regular, symmetrical. GI: No signs and/or symptoms were reported involving the gastrointestinal system. : No signs and/or symptoms were reported regarding the genitourinary system. EENT: No signs and/or symptoms were reported regarding the EENT system. Derm: Skin is intact, is fragile, is thin, Skin is pink, warm \T\ dry. Skin temperature is warm. Musculoskeletal: Capillary refill < 3 seconds. 22:30 Respiratory: Breath sounds with wheezes in left lower lobe. rr5 23:15 Reassessment: Patient appears in no apparent distress at this time. Patient is alert, rr5 oriented x 3, equal unlabored respirations, skin warm/dry/pink. Patient states feeling better. Patient states symptoms have improved. 12/24 00:45 Reassessment: Patient appears in no apparent distress at this time. Patient is alert, rr5 oriented x 3, equal unlabored respirations, skin warm/dry/pink. no complaints made, BP rechecked manually. ED Provider aware with order made and carried out. 01:30 Reassessment: Patient appears in no apparent distress at this time. as per the daughter rr5 patient took her evening dose of ropinirole for her restless legs that is why she is drowsy right now. ED provider aware. 02:27 Reassessment: ECG done relayed to ED provider and hospitalist at bedside examining the rr5 patient, showed the ECG result to him. patient is for CT scan. 02:55 Reassessment: Patient appears in no apparent distress at this time. Patient is alert, rr5 oriented x 3, equal unlabored respirations, skin warm/dry/pink. came back from CT scan. 03:30 Reassessment: Patient appears in no apparent distress at this time. Patient is alert, rr5 oriented x 3, equal unlabored respirations, skin warm/dry/pink. repeat lactate collected and sent. Patient states feeling better. Patient states symptoms have improved. Vital Signs: 12/23 21:41 BP 123 / 86; Pulse 82; Resp 18; Temp 99.2; Pulse Ox 98% on R/A; Weight 40.82 kg (R); aj1 Height 5 ft. 0 in. (152.40 cm) (R); Pain 0/10; 22:30 BP 115 / 70; Pulse 95; Resp 18; Temp 98(O); Pulse Ox 99% ; rr5 23:30 BP 105 / 80; Pulse 100; Resp 19; Temp 98.5; Pulse Ox 98% ; rr5 12/24 00:35 BP 89 / 36; Pulse 89; Resp 15; Pulse Ox 90% on 3 lpm NC; rr5 00:43 BP 84 / 60 RA (man/); Pulse 76; Resp 14; Pulse Ox 98% on 3 lpm NC; mg2 01:15 BP 99 / 56; Pulse 105; Resp 17; Pulse Ox 98% on 3 lpm NC; rr5 01:40 BP 119 / 58; Pulse 111; Resp 19; Pulse Ox 97% on 3 lpm NC; rr5 02:27 BP 109 / 63; Pulse 109; Resp 14; Pulse Ox 97% on 3 lpm NC; rr5 03:33 BP 103 / 73; Pulse 99; Resp 16; Temp 98.3; Pulse Ox 99% on 2 lpm NC; rr5 12/23 21:41 Body Mass Index 17.58 (40.82 kg, 152.40 cm) aj1 00:35 hooked to oxygen rr5 ED Course: 12/23 21:11 Patient arrived in ED. es 21:11 Harjit Jefferson MD is Private Physician. es 21:46 Triage completed. aj1 21:48 Arm band placed on Patient placed in waiting room, Patient notified of wait time. aj1 22:08 Erm[facility] Munoz [facility]-C [facility] kb 22:08 Luis Felipe Alonso MD is Attending Physician. kb 22:28 Elliot Sanchez RN is Primary Nurse. rr5 23:31 Chest Pa And Lat (2 Views) XRAY In Process Unspecified. EDMS 12/24 00:00 Inserted saline lock: 20 gauge in left antecubital area, using aseptic technique. Blood rr5 collected. 00:00 First set of blood cultures drawn by me. rr5 00:18 Second set of blood cultures drawn by me. rr5 00:40 Notified Nurse Practitioner and/or Physician Metal Buggy Operator of a critical lab result(s), lp1 Lactate 2.4. 00:45 Patient has correct armband on for positive identification. Placed in gown. Bed in low rr5 position. Call light in reach. Side rails up X2. color television console monitor on. Pulse ox on. NIBP on. 00:48 Notified Nurse Practitioner and/or Physician Metal Buggy Operator of a critical lab result(s), WBC lp1 25.5. 01:01 Wayne Haskins MD is Hospitalizing Provider. kb 01:59 No provider procedures requiring assistance completed. EKG done, by ED staff, reviewed rr5 by Ermelinda DE LA CRUZ. Patient admitted, IV remains in place. intact, No redness/swelling at site. Administered Medications: 12/23 22:48 Drug: Xopenex 1.25 mg Route: Inhalation; rr5 22:48 Drug: AtroVENT Aerosol 0.5 mg Route: Inhalation; rr5 12/24 00:15 Drug: Rocephin 1 grams Route: IV; Rate: calculated rate; Site: left antecubital; rr5 00:40 Follow up: Response: No adverse reaction; IV Status: Completed infusion; IV Intake: [id number] 00:45 Follow up: Response: No adverse reaction; IV Status: Completed infusion; IV Intake: [id number] 00:46 Dru mg of (Zithromax 500 mg, NS 0.9% 250 ml) Route: IVPB; Infused Over: 1 hrs; rr5 Site: left antecubital; 01:45 Follow up: Response: No adverse reaction; IV Status: Completed infusion; IV Intake: rr5 250ml 00:56 Drug: NS 0.9% 1000 ml Route: IV; Rate: 1 bolus; Site: left antecubital; rr5 01:58 Follow up: Response: No adverse reaction; IV Status: Completed infusion; IV Intake: rr5 1000ml Intake: 00:40 IV: 10ml; Total: 10ml. rr5 00:45 IV: 10ml; Total: 20ml. rr5 01:45 IV: 250ml; Total: 270ml. rr5 01:58 IV: 1000ml; Total: 1270ml. rr5 Outcome: 01:01 Decision to Hospitalize by Provider. kb 03:00 Admitted to Med/surg accompanied by tech, via stretcher, room 225, with oxygen, with rr5 chart, Report called to [facility] 03:00 Condition: stable 03:00 Instructed on the need for admit. 03:50 Patient left the ED. rr5 Signatures: Dispatcher [employer] Ermelinda Bower, SUPERVISOR PLASTICS-Sarah SUPERVISOR PLASTICS-Chastity Murillo RN RN aj1 Sonja Mcpherson Laura, RN RN lp1 Rajiv Mustafa RN RN mg2 Roque, Raymond, RN RN rr5 Corrections: (The following items were deleted from the chart) 01:24 13 22:30 Cardiovascular: Capillary refill < 3 seconds Patient's skin is warm and rr5 dry. rr5 12/24 03:39 01:58 Response: No adverse reaction; IV Status: Completed infusion; IV Intake: 1000ml rr5 rr5 03:40 01:45 Response: No adverse reaction; IV Status: Completed infusion; IV Intake: 250ml rr5rr5 03:41 00:40 Response: No adverse reaction; IV Status: Completed infusion; IV Intake: 10ml rr5 rr5
--- NOTE | 2019-12-25 01:02 | EDPHYS ---
Physician Documentation [facility] Name: Gabbie Rich Age: 74 yrs Sex: Female : 1945 Arrival Date: 12/24/2019 Time: 21:[address] Private MD: Harjit Jefferson ED Physician Luis Felipe Alonso HPI: 12/23 22:53 This 74 yrs old Female presents to ER via Ambulatory with complaints of kb Breathing Difficulty. 22:53 The patient has not experienced similar symptoms in the past. The patient has not kb recently seen a physician. 22:53 The patient or guardian reports cough, that is intermittent, described as moderate, kb with no sputum, flu symptoms, myalgias. Onset: The symptoms/episode began/occurred last night. Severity of symptoms: At their worst the symptoms were moderate, in the emergency department the symptoms are unchanged. Modifying factors: The symptoms are alleviated by nothing, the symptoms are aggravated by nothing. Associated signs and symptoms: The patient has no apparent associated signs or symptoms. Pt reports she got a chill at 1800 yesterday, then felt tired. Has had a cough and shortness of breath since then with body aches. States the cough sounds like rattling. Historical: - Allergies: 21:48 No Known Allergies; aj1 - Home Meds: 21:48 levothyroxine 75 mcg oral tab 1 tab once daily [Active]; ropinirole 2 mg Oral tab 1 tab aj1 per day [Active]; furosemide 60 mg Oral tab 1 tab once daily [Active]; albuterol sulfate 90 mcg/actuation Inhl HFAA 1 puff every 4-6 hours [Active]; montelukast 10 mg oral tab 1 tab once daily [Active]; Albuterol Nebulizer [Active]; - PMHx: 21:48 Hypothyroidism; Hypertension; restless leg syndrome; pulmonary fibrosis; CHF; aj1 - Immunization history:: Flu vaccine is up to date. - Social history:: Smoking status: Patient denies any tobacco usage or history of. ROS: 22:51 Neck: Negative for injury, pain, and swelling, Cardiovascular: Negative for chest pain, kb palpitations, and edema, Abdomen/GI: Negative for abdominal pain, nausea, vomiting, diarrhea, and constipation, Back: Negative for injury and pain, MS/Extremity: Negative for injury and deformity, Skin: Negative for injury, rash, and discoloration, Neuro: Negative for headache, weakness, numbness, tingling, and seizure. 22:51 Constitutional: Positive for chills, fatigue, malaise. 22:51 Respiratory: Positive for cough, with no reported sputum, shortness of breath. Exam: 22:51 Constitutional: This is a well developed, well nourished patient who is awake, alert, kb and in no acute distress. Head/Face: Normocephalic, atraumatic. Neck: Trachea midline, no thyromegaly or masses palpated, and no cervical lymphadenopathy. Supple, full range of motion without nuchal rigidity, or vertebral point tenderness. No Meningismus. Chest/axilla: Normal chest wall appearance and motion. Nontender with no deformity. No lesions are appreciated. Cardiovascular: Regular rate and rhythm with a normal S1 and S2. No gallops, murmurs, or rubs. Normal PMI, no JVD. No pulse deficits. Abdomen/GI: Soft, non-tender, with normal bowel sounds. No distension or tympany. No guarding or rebound. No evidence of tenderness throughout. Back: No spinal tenderness. No costovertebral tenderness. Full range of motion. Skin: Warm, dry with normal turgor. Normal color with no rashes, no lesions, and no evidence of cellulitis. MS/ Extremity: Pulses equal, no cyanosis. Neurovascular intact. Full, normal range of motion. Neuro: Awake and alert, GCS 15, oriented to person, place, time, and situation. Cranial nerves II-XII grossly intact. Motor strength 5/5 in all extremities. Sensory grossly intact. Cerebellar exam normal. Normal gait. 22:51 Respiratory: the patient does not display signs of respiratory distress, Respirations: normal, Breath sounds: wheezing: inspiratory that is mild, is heard in the left lower lobe. Vital Signs: 21:41 BP 123 / 86; Pulse 82; Resp 18; Temp 99.2; Pulse Ox 98% on R/A; Weight 40.82 kg (R); aj1 Height 5 ft. 0 in. (152.40 cm) (R); Pain 0/10; 22:30 BP 115 / 70; Pulse 95; Resp 18; Temp 98(O); Pulse Ox 99% ; rr5 23:30 BP 105 / 80; Pulse 100; Resp 19; Temp 98.5; Pulse Ox 98% ; rr5 12/24 00:35 BP 89 / 36; Pulse 89; Resp 15; Pulse Ox 90% on 3 lpm NC; rr5 00:43 BP 84 / 60 RA (man/); Pulse 76; Resp 14; Pulse Ox 98% on 3 lpm NC; mg2 01:15 BP 99 / 56; Pulse 105; Resp 17; Pulse Ox 98% on 3 lpm NC; rr5 01:40 BP 119 / 58; Pulse 111; Resp 19; Pulse Ox 97% on 3 lpm NC; rr5 02:27 BP 109 / 63; Pulse 109; Resp 14; Pulse Ox 97% on 3 lpm NC; rr5 03:33 BP 103 / 73; Pulse 99; Resp 16; Temp 98.3; Pulse Ox 99% on 2 lpm NC; rr5 12/23 21:41 Body Mass Index 17.58 (40.82 kg, 152.40 cm) aj1 00:35 hooked to oxygen rr5 MDM: 12/23 22:24 Patient medically screened. kb 22:52 Data reviewed: vital signs, nurses notes. Data interpreted: Pulse oximetry: on room air kb is 98 %. Interpretation: normal. 23:41 Counseling: I had a detailed discussion with the patient and/or guardian regarding: the kb historical points, exam findings, and any diagnostic results supporting the discharge/admit diagnosis, radiology results, the need for further work-up and treatment in the hospital. 12/24 01:00 Physician consultation: Wayne Haskins MD was contacted at 01:00, regarding admission, kb to the telemetry unit. patient's condition, and will see patient in ED, shortly. 12/23 21:55 Order name: Flu; Complete Time: 23:16 kb 12/23 23:38 Order name: CBC with Diff; Complete Time: 01:10 kb 12/23 23:38 Order name: Basic Metabolic Panel; Complete Time: 00:54 kb 12/23 23:38 Order name: Procalcitonin; Complete Time: 01:01 kb 12/23 23:38 Order name: Lactate; Complete Time: 00:54 kb 12/23 23:38 Order name: Blood Culture Adult (2) kb 12/24 01:04 Order name: Manual Differential; Complete Time: 01:10 EDMS 12/24 03:18 Order name: CBC with Automated Diff EDMS 12/24 03:18 Order name: Comprehensive Metabolic Panel EDMS 12/24 03:18 Order name: Lactate EDMS 12/24 03:18 Order name: Magnesium EDMS 12/24 03:18 Order name: Procalcitonin EDMS 12/24 03:18 Order name: Phosphorus EDMS 12/24 03:18 Order name: NT PRO-BNP EDMS 12/23 21:49 Order name: Chest Pa And Lat (2 Views) XRAY aj1 12/23 23:38 Order name: IV Start; Complete Time: 00:21 kb 12/24 01:00 Order name: CT Chest Wo Con kb 12/24 01:58 Order name: EKG - Nurse/Tech; Complete Time: 01:59 rr5 12/24 03:18 Order name: CONS Pharmacy Consult EDIL 12/24 03:18 Order name: CONS Physician Consult EDIL 12/24 03:18 Order name: CONS Physician Consult EDIL 12/24 03:18 Order name: Heart Healthy EDMS 12/24 03:18 Order name: Protime (+INR) EDMS 12/24 03:18 Order name: PTT, Activated Partial Thromb EDMS 12/24 03:18 Order name: Troponin I EDIL Administered Medications: 12/23 22:48 Drug: Xopenex 1.25 mg Route: Inhalation; rr5 22:48 Drug: AtroVENT Aerosol 0.5 mg Route: Inhalation; rr5 12/24 00:15 Drug: Rocephin 1 grams Route: IV; Rate: calculated rate; Site: left antecubital; rr5 00:40 Follow up: Response: No adverse reaction; IV Status: Completed infusion; IV Intake: [id number] 00:45 Follow up: Response: No adverse reaction; IV Status: Completed infusion; IV Intake: 37ctrm5 00:46 Dru mg of (Zithromax 500 mg, NS 0.9% 250 ml) Route: IVPB; Infused Over: 1 hrs; rr5 Site: left antecubital; 01:45 Follow up: Response: No adverse reaction; IV Status: Completed infusion; IV Intake: rr5 250ml 00:56 Drug: NS 0.9% 1000 ml Route: IV; Rate: 1 bolus; Site: left antecubital; rr5 01:58 Follow up: Response: No adverse reaction; IV Status: Completed infusion; IV Intake: rr5 1000ml Disposition: 12/25/19 01:01 Hospitalization ordered by Wayne Haskins for Inpatient Admission. Preliminary diagnosis is Pneumonia, unspecified organism - bilateral. - Bed requested for Telemetry/MedSurg (Inpatient). - Status is Inpatient Admission. rr5 - Condition is Stable. - Problem is new. - Symptoms are unchanged. Signatures: Dispatcher [employer] EDMS Ermelinda Munoz, ELECTRICAL CONTACTS ADJUSTER-C ELECTRICAL CONTACTS ADJUSTER-Ckb Chastity Bourne, RN RN aj1 Marianne Moser, RN RN lp1 Elliot Sanchez RN RN rr5 Corrections: (The following items were deleted from the chart) 01:39 01:01 Hospitalization Ordered by Wayne Haskins MD for Inpatient Admission. Preliminary lp1 diagnosis is Pneumonia, unspecified organism - bilateral. Bed requested for Telemetry/MedSurg (Inpatient). Status is Inpatient Admission. Condition is Stable. Problem is new. Symptoms are unchanged. kb 03:50 01:39 12/25/2019 01:01 Hospitalization Ordered by Wayne Haskins MD for Inpatient rr5 Admission. Preliminary diagnosis is Pneumonia, unspecified organism - bilateral. Bed requested for Telemetry/MedSurg (Inpatient). Status is Inpatient Admission. Condition is Stable. Problem is new. Symptoms are unchanged. lp1
[2019-12-25 01:05] LABS: Blood Morphology Comment NOT SEEN (NOT SEEN); Platelet Estimate ADEQ
[2019-12-25] MEDS ORDERED: ACETAMINOPHEN 500 MG TAB PO PRN (03:09)
[2019-12-25] MEDS ORDERED: DIGOXIN 0.25 MG/ML AMP IV ONE (03:09)
[2019-12-25] MEDS ORDERED: ONDANSETRON 4 MG/2 ML VIAL IV PRN (03:09)
[2019-12-25] MEDS ORDERED: VANCOMYCIN 1 GM/VIAL ONE (03:59)
[2019-12-25] MEDS ORDERED: NA CHLORIDE 0.9% 1,000 ML IV SCH ×2 (04:00)
[2019-12-25] MEDS ORDERED: NA CHLORIDE 0.9% 250 ML ONE (04:03)
[2019-12-25] MEDS ORDERED: PIPERACIL/TAZO 3.375 GM VIAL IV ONE (05:00)
[2019-12-25] MEDS ORDERED: VANCOMYCIN 1 GM in NA CHLORIDE 0.9% 250 ML IVPB ONE (05:00)
--- NOTE | 2019-12-25 05:22 | P.HP ---
Certification for Inpatient Patient admitted to: Inpatient With expected LOS: >2 Midnights Patient will require the following post-hospital care: None Practitioner: I am a practitioner with admitting privileges, knowledge of patient current condition, hospital course, and medical plan of care. Services: Services provided to patient in accordance with Admission requirements found in Title 42 Section 412.3 of the Code of Federal Regulations Patient History Date of Service: 12/25/19 Reason for admission: Respiratory distress History of Present Illness: Patient is a 74-year-old female with a history of pulmonary fibrosis and dilated cardiomyopathy with an ejection fraction of 43%. She also has mild pulmonary hypertension. She was here about a year ago with volume overload and she was told she has CHF. She was diuresed and she was given a thoracentesis. She has been doing well with inhaler therapy. However, over the last 48-72 hr she developed respiratory distress. She was short of breath and coughing and congested. She has some yellowish phlegm as well. She came to the ER & her chest x-ray revealed a right lower lobe & a left lower lobe pneumonia. She denies any sick contacts. She has a daughter who checks on her regularly. However, patient does most of her own ADLs. Patient will be admitted to the hospital for further evaluation. Allergies No Known Allergies Allergy (Verified 12/25/19 04:11) Home Medications: Albuterol Inhaler [Ventolin Inhaler] 2 puff IH Q6H PRN 02/24/19 Levothyroxine Sodium 50 mcg PO DIRECTED 02/24/19 Levothyroxine Sodium 75 mcg PO DIRECTED 02/24/19 Naproxen Sodium [Aleve] 220 mg PO BID PRN 02/24/19 Ropinirole HCl 2 mg PO TID PRN 02/24/19 lisinopriL [Lisinopril] 5 mg PO DAILY #30 tablet 02/27/19 Furosemide [Lasix] 3 tab PO DAILY 12/25/19 - Past Medical/Surgical History Has patient received pneumonia vaccine in the past: Yes Diabetic: No -: Hypertension -: Hypothyroid -: CHF -: Asthma -: Severe restless legs -: Pulmonary fibrosis -: Hysterectomy -: Right hip replacement - Family History Mother Medical History: Heart disease, Stroke, Other (see notes) Notes: CHF; HTN - Social History Smoking Status: Never smoker Alcohol use: Yes CD- Drugs: No Caffeine use: Yes Place of Residence: Home Review of Systems 10-point ROS is otherwise unremarkable Physical Examination - Vital Signs Temperature: 98.3 F Blood Pressure: 103/73 Pulse: 99 Respirations: 16 Pulse Ox (%): 90 - Physical Exam General: Alert, In no apparent distress, Oriented x3 HEENT: Atraumatic, PERRLA, Mucous membr. moist/pink, EOMI, Sclerae nonicteric Neck: Supple, 2+ carotid pulse no bruit, No LAD, Without JVD or thyroid abnormality Respiratory: Diminished, Crackles/rales, Expiratory wheezes Cardiovascular: Regular rate/rhythm, Normal S1 S2, Systolic murmur Gastrointestinal: Normal bowel sounds, Soft and benign, Non-distended, No tenderness Musculoskeletal: No tenderness Integumentary: No rashes Neurological: Normal gait, Normal speech, Normal strength at 5/5 x4 extr, Normal tone, Normal affect Lymphatics: No axilla or inguinal lymphadenopathy - Studies Laboratory Data (last 24 hrs) 12/25/19 00:00: Sodium 133 L, Potassium 3.6, BUN 28 H, Creatinine 1.30, Glucose 124 H 12/25/19 00:00: WBC 25.5 H*, Hgb 11.4 L, Hct 35.9 L, Plt Count 283 Microbiology Data (last 24 hrs): 12/24/19 22:40 Nasopharnyx Influenza Type A Antigen Screen - Final 12/24/19 22:40 Nasopharnyx Influenza Type B Antigen Screen - Final Assessment & Plan - Problems (Diagnosis) (1) Pulmonary fibrosis Current Visit: Yes Status: Acute (2) Bilateral pneumonia Current Visit: Yes Status: Acute (3) Dilated cardiomyopathy Current Visit: Yes Status: Acute (4) Congestive heart failure (CHF) Current Visit: No Status: Acute Qualifiers: Heart failure type: systolic (5) Hypertension Current Visit: Yes Status: Acute (6) Hypothyroidism Current Visit: Yes Status: Acute (7) Pulmonary hypertension Current Visit: Yes Status: Acute - Plan 1. Continue with IV antibiotics 2. Awaiting sputum and blood culture 3. Repeat chest x-ray 4. Will proceed with CT scan of the chest 5. Pulmonary & Cardiology consultation 6. Continue with nebs as needed 7. O2 per protocol 8. Gentle diuresing 9. Medication for rate control and anti coagulation 10. Repeat labs including CBC and renal function in a.m. 11. GI and DVT prophylaxis Discharge Plan: Home Plan to discharge in: Greater than 2 days - Advance Directives Does patient have a Living Will: Yes Does patient have a Durable POA for Healthcare: Yes - Code Status/Comfort Care Code Status Assessed: Yes Code Status: Full Code Critical Care: No Time Spent Managing PTS Care (In Minutes): 45
[2019-12-25 05:46] VITALS: BMI 17.4
[2019-12-25] MEDS ORDERED: METHYLPREDNISOLONE 125 MG INJ IV SCH (06:00)
[2019-12-25] MEDS: PIPER/TAZO/NS 3.375gm 3.375 GM/100 ML BAG IVPB SCH ×3 (06:00→17:54)
[2019-12-25] MEDS ORDERED: NA CHLORIDE 0.9% 100 ML ONE (06:06)
[2019-12-25] MEDS: ENOXAPARIN 40 MG/0.4 ML SQ SCH (06:21)
[2019-12-25] MEDS ORDERED: LEVOTHYROXINE SOD 0.05 MG TABLET PO SCH ×3 (06:30→10:15)
[2019-12-25 06:31] LABS: Absolute Lymphocytes (CBC) 1.3 K/uL (0.7-4.9); Basophils % 0.4 % (0-1.3); Hematocrit 31.2 % (36.0-45.0); Lymphocytes % 7.1 % (15.3-44.8); MPV 7.9 fL (7.6-11.3)
[2019-12-25 06:47] LABS: Protime INR 1.11
[2019-12-25 06:55] LABS: ALT/SGPT 17 U/L (12-78); AST/SGOT 18 U/L (15-37); Albumin 2.4 g/dL (3.4-5.0); Alkaline Phosphatase 67 U/L (45-117); BUN Blood Urea Nitrogen 23 mg/dL (7-18); Bicarbonate 24 mmol/L (21-32); Bilirubin Total 0.5 mg/dL (0.2-1.0); Glucose Level 99 mg/dL (74-106); HDL Cholesterol 63 mg/dL (40-60); LDL Cholesterol, Calculated 49 (<130); Protein, Total 6.1 g/dL (6.4-8.2); Sodium Level 139 mmol/L (136-145); Troponin I < 0.02 ng/mL (0.0-0.045)
[2019-12-25] MEDS ORDERED: ROPINIROLE HCL 1 MG TAB PO PRN (07:00)
[2019-12-25] MEDS ORDERED: ALBUTEROL 2.5 MG/3 ML NEB SOL NEB SCH (08:00)
[2019-12-25] MEDS: IPRATROPIUM BROM 0.5MG/2.5ML NEB SCH ×3 (08:51→20:30)
[2019-12-25] MEDS ORDERED: FUROSEMIDE 20 MG TABLET PO SCH (09:00)
[2019-12-25] MEDS ORDERED: ENOXAPARIN 40 MG/0.4 ML SQ SCH (09:00)
--- NOTE | 2019-12-25 09:29 | CON ---
Date of Consultation: 12/25/2019 The patient was admitted to Dr. Haskins's service on 12/25/2019. She has been seen on 12/25/2019. Reason For Consultation: Atrial fibrillation. History Of Present Illness: Ms. Rich is a 74-year-old woman. She has not had atrial fibrillati on in the past. She has chronic systolic congestive heart failure with an ejection fraction of 43% a nd a negative Lexiscan in February of 2019. She has a history of pulmonary fibrosis, hypertension, restle ss legs syndrome, and hypothyroidism. Ms. Rich came in with shortness of breath and was found t o have bilateral pneumonia. White count was 19,000 with a left shift. She was noted to be in atrial fibrillation at a rate of about 100 to 110. She was given digoxin. She was on antibiotics and ster oids and by the time I saw her this morning, she is back in normal rhythm. She had Lovenox as well. Past Medical History: As stated above. Allergies: SHE HAS NO ALLERGIES. Review of Systems: Negative. Social History: Negative. Family History: Noncontributory. Medications: At home include inhalers, Lasix, Synthroid, lisinopril, ropinirole and Naprosyn. Physical Examination: General: Ms. Rich is very pleasant, no acute distress. Sinus rhythm. Vital Signs: Stable afebrile. Was eating her breakfast and watching television with a nasal cannula 2 L adequate O2 saturations. HEENT: Negative. Neck: Supple. No bruit. Chest: Rales in both bases and expiratory wheezing. Cardiac: Revealed sinus rhythm with no murmurs, gallops, or rubs. Abdomen: Benign. Extremities: Revealed no clubbing, cyanosis, or edema. Diagnostic Data: Showed a white count of 19,000. Rest of her blood work was fairly unremarkable. Impression And Plan: Atrial fibrillation new onset, it has resolved after 1 dose of digoxin. Hopefu lly, this is secondary to the pneumonia and pulmonary fibrosis and congestive heart failure that is c hronic and systolic and well controlled. We will watch her for now. If she has any recurrence of he r atrial fibrillation, I would recommend sotalol and long-term anticoagulation, but if this does not reoccur during the hospitalization, I think we should check her as an outpatient down with an event m onitor to see if she had any recurrent atrial fibrillation. Her other problems including pulmonary f ibrosis that are stable, chronic systolic congestive heart failure that is stable. Hypertension that is well controlled. We will continue to follow her. PAMELA/DANY Voice ID: [id number] Report ID: [id number]
[2019-12-25] MEDS ORDERED: LEVOTHYROXINE SOD 0.075 MG TAB PO SCH (09:45)
--- NOTE | 2019-12-25 09:52 | RAD REPORT ---
EXAM DESCRIPTION: RAD - Chest Pa And Lat (2 Views) - 12/24/2019 11:30 pm CLINICAL HISTORY: SOB, nasal congestion, body aches, rib pain COMPARISON: Two view chest February 2019 TECHNIQUE: Frontal and lateral views of the chest were obtained. FINDINGS: The lungs are fibrotic as a baseline. Focal masslike consolidation is present at the ante rior left lung base and in the mid and lower right lung field. Upper lung mendenhall are clear of an acut e process. Heart size is normal and central vasculature is within normal limits. No pleural effusion or pneumothorax seen. No acute bony finding noted. No aortic abnormality. IMPRESSION: Focal pneumonia in the right middle lobe and lingula of the left upper lobe. Follow-up is needed in filled complete clearing to ensure no underlying mass.
[2019-12-25] MEDS: DIGOXIN 0.25 MG/ML AMP IV SCH ×2 (10:05→14:45)
[2019-12-25] MEDS ORDERED: ALBUTEROL 2.5 MG/3 ML NEB SOL NEB PRN (10:55)
--- NOTE | 2019-12-25 10:56 | P.CNS ---
Date of Consult: 12/25/19 Chief Complaint: Respiratory distress History of Present Illness: Patient is 74 years of age admitted with a sudden onset of respiratory distress coughing wheezing and appeared in the hospital with bilateral patchy changes suggestive of an infection patient has cardiomyopathy with moderate pulmonary hypertension patient's white count was elevated at pro calcitonin afebrile normal blood pressure Allergies No Known Allergies Allergy (Verified 12/25/19 04:11) Home Medications: Albuterol Inhaler [Ventolin Inhaler] 2 puff IH Q6H PRN 02/24/19 Levothyroxine Sodium 50 mcg PO DIRECTED 02/24/19 Levothyroxine Sodium 75 mcg PO DIRECTED 02/24/19 Naproxen Sodium [Aleve] 220 mg PO BID PRN 02/24/19 Ropinirole HCl 2 mg PO TID PRN 02/24/19 lisinopriL [Lisinopril] 5 mg PO DAILY #30 tablet 02/27/19 Furosemide [Lasix] 3 tab PO DAILY 12/25/19 - Past Medical/Surgical History Diabetic: No -: Hypertension -: Hypothyroid -: CHF -: Asthma -: Severe restless legs -: Pulmonary fibrosis -: Hysterectomy -: Right hip replacement - Family History Mother Medical History: Heart disease, Stroke, Other (see notes) Notes: CHF; HTN - Social History Alcohol use: Yes CD- Drugs: No Caffeine use: Yes Place of Residence: Home Review of Systems Unremarkable General: Weakness Respiratory: Cough, Shortness of Breath Physical Examination Temp Pulse Resp BP Pulse Ox 97.8 F 80 18 132/63 97 12/25/19 08:00 12/25/19 08:00 12/25/19 08:00 12/25/19 08:00 12/25/19 08:00 General: Alert, Oriented x3 HEENT: Atraumatic Neck: Supple Respiratory: Clear to auscultation bilaterally, Diminished Cardiovascular: No edema, Regular rate/rhythm, Normal S1 S2 Gastrointestinal: Normal bowel sounds, Soft and benign Laboratory Data (last 24 hrs) 12/25/19 00:00: Sodium 133 L, Potassium 3.6, BUN 28 H, Creatinine 1.30, Glucose 124 H 12/25/19 00:00: WBC 25.5 H*, Hgb 11.4 L, Hct 35.9 L, Plt Count 283 - Problems (1) Bilateral pneumonia Current Visit: Yes Status: Acute Plan: Patient is 74 years of age admitted with bilateral pneumonia elevated white count elevated pro calcitonin patient is clinically improving continue with present antibiotics taper down the antibiotics to p.o. levofloxacin when the white count is normal cultures are negative white count is declining patient has CHF with moderate pulmonary hypertension Qualifiers: Pneumonia type: due to unspecified organism
[2019-12-25] MEDS: predniSONE 20 MG TAB PO SCH (21:00)
--- NOTE | 2019-12-25 21:44 | PN ---
Date of Progress Note: 12/25/2019 Patient states she feels much better today. She has not had any further breathing trouble and her te lemetry has been within normal limits. We will therefore continue with the Eliquis and beta betzaida and antibiotics and repeat the chest x-ray in a.m. HR/MODL Voice ID: [id number] Report ID: [id number]
[2019-12-25] MEDS: ROPINIROLE HCL 2 MG TAB PO PRN (22:55)
[2019-12-26] MEDS: PIPER/TAZO/NS 3.375gm 3.375 GM/100 ML BAG IVPB SCH ×2 (00:12→05:55)
[2019-12-26] MEDS: IPRATROPIUM BROM 0.5MG/2.5ML NEB SCH ×4 (01:30→20:25)
[2019-12-26 06:53] LABS: Basophils % 0.2 % (0-1.3); Hematocrit 30.7 % (36.0-45.0); Lymphocytes % 4.4 % (15.3-44.8); MPV 8.4 fL (7.6-11.3); RBC Red Blood Cell Count 3.88 M/uL (3.86-4.86)
[2019-12-26 07:10] LABS: Potassium 3.6 mmol/L (3.5-5.1)
--- NOTE | 2019-12-26 08:55 | RAD REPORT ---
EXAM DESCRIPTION: RAD - Chest Pa And Lat (2 Views) - 12/26/2019 8:39 am CLINICAL HISTORY: pneumonia COMPARISON: CT chest December 24, two view chest December 23 TECHNIQUE: Frontal and lateral views of the chest were obtained. FINDINGS: The lungs are normal volume. Consolidation in the lingula left upper lobe may be slightly improved. Right midlung field pneumonia changes are not substantially different. No progressive proce ss. Heart size is normal. Vasculature within normal limits. No pleural effusion or pneumothorax seen. No acute bony finding noted. No aortic abnormality. IMPRESSION: Bilateral pneumonia findings are still present. Left base pneumonia may be slightly impr carol.
[2019-12-26] MEDS: FUROSEMIDE 20 MG TABLET PO SCH (09:00)
--- NOTE | 2019-12-26 09:55 | P.PN ---
Subjective Date of Service: 12/26/19 Chief Complaint: Bilateral pneumonia Subjective: Improving (Patient is doing much better wants to go home the new complaints) Review of Systems General: Weakness Respiratory: Shortness of Breath Physical Examination - Vital Signs Temperature: 97.7 F Blood Pressure: 176/76 Pulse: 67 Respirations: 18 Pulse Ox (%): 100 - Physical Exam General: Alert, Oriented x3 HEENT: Atraumatic Neck: Supple Respiratory: Clear to auscultation bilaterally Cardiovascular: No edema, Regular rate/rhythm Assessment & Plan - Problems (Diagnosis) (1) Bilateral pneumonia Current Visit: Yes Status: Acute Plan: Patient is doing much better white count is declining vital signs stable oxygenation satisfactory patient can be changed to p.o. levofloxacin 500 mg daily claims that she has difficulty swallowing if unable to swallow Levaquin consider discharge home on Augmentin liquid and doxycycline follow with me in 2 weeks Qualifiers: Pneumonia type: due to unspecified organism
[2019-12-26] MEDS: levoFLOXacin 500 MG TAB PO SCH (10:03)
[2019-12-26] MEDS: ENOXAPARIN 40 MG/0.4 ML SQ SCH (10:03)
[2019-12-26] MEDS: predniSONE 20 MG TAB PO SCH (10:03)
--- NOTE | 2019-12-26 14:29 | PN ---
Date of Progress Note: 12/26/2019 Ms. Rich is a 74-year-old woman. She was admitted on 12/25/[address] Haskins and was seen for 1 episode of atrial fibrillation. She has significant pulmonary fibrosis, hypertension, history of hyp othyroidism, and restless legs syndrome. Had a negative stress test in February of 2019. Ejection fracti on of 43% on echo. Came in with shortness of breath, probably secondary to her pulmonary fibrosis. Received antibiotics and steroid. Received 1 dose of digoxin for her atrial fibrillation and has res olved. Over the last 24 hours, she has not had any more atrial fibrillation. I am comfortable with her going home. I do not recommend any anticoagulation at this point just from having 1 episode. I will have her do an event monitor in the office in the next week or two and see if she has any atrial fibrillation and then will decide further on anticoagulation. From my standpoint, she can go home t erlin. PAMELA/DANY Voice ID: [id number] Report ID: [id number]
[2019-12-26] MEDS ORDERED: VANCOMYCIN 750 MG in NA CHLORIDE 0.9% 150 ML IVPB SCH (17:00)
--- NOTE | 2019-12-26 19:36 | PN ---
Date of Progress Note: 12/26/2019 Patient states she feels considerably better; however, attributes some of this to the steroids which she got and she apparently is not on baseline prednisone. Her x-ray showed minimal improvement. Her white count is still elevated secondary to the steroids. Seen by Pulmonology. IV antibiotics were discontinued. Started on p.o. Telemetry is fine. There was some mention earlier about using a beta -betzaida; however, Cardiology felt this should be utilized only when she has prior episodes and sugge sted the use of the telemetry event. However, the patient did not have any knowledge of the AFib whe n she was in it, so I therefore think it is probably kumar to keep her least 1 more day on oral antibi otics, decrease her steroids, continue the telemetry, and we will repeat the white count as well. Pr obably could be discharged in the a.m. HR/MODL Voice ID: [id number] Report ID: [id number]
[2019-12-26] MEDS: ROPINIROLE HCL 2 MG TAB PO PRN (22:50)
[2019-12-27] MEDS: IPRATROPIUM BROM 0.5MG/2.5ML NEB SCH ×2 (01:45→07:43)
[2019-12-27 04:40] LABS: Absolute Lymphocytes (CBC) 1.2 K/uL (0.7-4.9); Basophils % 0.1 % (0-1.3); Hematocrit 29.9 % (36.0-45.0); Lymphocytes % 6.7 % (15.3-44.8); MPV 8.2 fL (7.6-11.3); RBC Red Blood Cell Count 3.77 M/uL (3.86-4.86)
[2019-12-27 04:53] LABS: Potassium 3.5 mmol/L (3.5-5.1)
[2019-12-27] MEDS ORDERED: LEVOTHYROXINE SOD 0.075 MG TAB PO SCH (06:30)
--- NOTE | 2019-12-27 06:58 | EKG ---
Test Date: 2019-12-25 Test Time: 01:48:56 Wire Temperer: RR MEASUREMENT RESULTS: Intervals: Rate: 120 OR: QRSD: 72 QT: 354 QTc: 500 [place]: P: OR: QRS: 52 T: 81 INTERPRETIVE STATEMENTS: Atrial fibrillation with rapid ventricular response Nonspecific ST and T wave abnormality, probably digitalis effect Abnormal ECG Compared to ECG 02/24/2019 07:22:43 Sinus rhythm no longer present ST (T wave) deviation still present Electronically Signed On 12-27-19 06:55:16 CDT by Thee Beckman
--- NOTE | 2019-12-27 06:58 | EKG ---
Test Date: 2019-12-25 Test Time: 05:53:30 Warping Machine Operator: RT MEASUREMENT RESULTS: Intervals: Rate: 66 [place]: 182 QRSD: 82 QT: 406 QTc: 425 [place]: P: 72 AK: 182 QRS: 56 T: 73 INTERPRETIVE STATEMENTS: Normal sinus rhythm Normal ECG Compared to ECG 12/25/2019 01:48:56 Atrial fibrillation no longer present ST (T wave) deviation no longer present Electronically Signed On 12-27-19 06:55:15 CDT by Thee Beckman
[2019-12-27] MEDS: ENOXAPARIN 40 MG/0.4 ML SQ SCH (08:42)
[2019-12-27] MEDS: levoFLOXacin 500 MG TAB PO SCH (08:42)
[2019-12-27] MEDS: FUROSEMIDE 20 MG TABLET PO SCH (08:46)
--- NOTE | 2019-12-27 08:49 | RAD REPORT ---
EXAM DESCRIPTION: RAD - Chest Pa And Lat (2 Views) - 12/27/2019 7:16 am CLINICAL HISTORY: pneumonia Chest pain. COMPARISON: Chest Pa And Lat (2 Views) dated 12/26/2019; Chest Pa And Lat (2 Views) dated 12/24/2019; Chest Pa And Lat (2 Views) dated 03/09/2019; Chest Pa And Lat (2 Views) dated 02/26/2019; Thorax Wo Con dated 12/25/2019 FINDINGS: Small right pleural effusion is seen. Mild improvement in the right mid lung infiltrate se en since comparative study. Left lung base infiltrate appear stable. The heart is normal in size. No displaced fractures.
[2019-12-27] MEDS ORDERED: POTASSIUM 25 MEQ EFFERV TAB PO ONE (09:00)
[2019-12-27] MEDS ORDERED: predniSONE 10 MG TAB PO SCH (09:00)
[2019-12-27] MEDS: ROPINIROLE HCL 2 MG TAB PO PRN (10:28)
--- NOTE | 2019-12-27 11:10 | RAD REPORT ---
EXAM DESCRIPTION: CT - Thorax Wo Kane - 12/25/2019 5:29 am CLINICAL HISTORY: The patient is 74 years old and is Female; dyspnea, pneumonia TECHNIQUE: Axial computed tomography images of the chest without intravenous contrast. Sagittal an d coronal reformatted images were created and reviewed. This CT exam was performed using one or mor e of the following dose reduction techniques: automated exposure control, adjustment of the mA and/ or kV according to patient size, and/or use of iterative reconstruction technique. COMPARISON: No relevant prior studies available. FINDINGS: LUNGS: Areas of dense consolidation within the right middle lobe and left lower lobe are present with minimal areas of bronchial wall thickening and air bronchograms. PLEURAL SPACE: Biapical pleural thickening/scarring is present. Trace left pleural effusion is present. HEART: No cardiomegaly. No pericardial effusion. BONES/JOINTS: No acute fracture. SOFT TISSUES: The soft tissues are normal. VASCULATURE: Atherosclerosis of the vasculature is present. No thoracic aortic aneurysm. LYMPH NODES: Unremarkable. No enlarged lymph nodes. IMPRESSION: Findings suggestive of multilobar pneumonia most prominent within the left lower lobe. Electronically signed by: Dana Mcclain MD 12/25/2019 4:11 AM CDT Due to temporary technical issues with the PACS/Fluency reporting system, reports are being signed by the in house radiologist as a courtesy to ensure prompt reporting. The interpreting radiologist is jun panly responsible for the content of the report.
[2019-12-27 11:12] VITALS: O2SAT 100
[2019-12-27 13:08] VITALS: BP 147/70; TEMP 97
--- NOTE | 2019-12-27 19:49 | PN ---
Date of Progress Note: 12/27/2019 Subjective: The patient states she feels somewhat better today, although is not quite as energetic a nd that will be due to the steroid decrease. Her x-ray shows some improvement, afebrile. No further atrial fibrillation, felt comfortable, sending her home. Continue with the Levaquin and a new nebul izer and she states using the hospital medicine, felt much better, more productive than the albuterol she uses at home, so Atrovent will be ordered for her as well. She will follow up with me at end of the week and Dr. Perez in 2 weeks. HR/MODL Voice ID: [id number] Report ID: [id number]
[2019-12-27] MEDS ORDERED: ENSURE ENLIVE 237 ML CAN PO SCH (21:00)
== END 2019-12-27 12:24 | disposition home or self-care (01) | DRG 193 ==
LOC: ER 21:06 → ERHOLD 12-25 03:09 → 2ND 12-25 03:30
PROVIDERS: ADMIT Hospitalist; ATTEND Hospitalist
DX: J18.9 Pneumonia, unspecified organism (principal); I50.23 Acute on chronic systolic (congestive) heart failure; I48.91 Unspecified atrial fibrillation; I27.20 Pulmonary hypertension, unspecified; E03.9 Hypothyroidism, unspecified; I11.0 Hypertensive heart disease with heart failure; J84.10 Pulmonary fibrosis, unspecified; G25.81 Restless legs syndrome
CPT/HCPCS: 36415; 71046; 71250; 80048; 80053; 80061; 80202; 83605; 83735; 84145; 84439; 84443; 84484; 85025; 85610; 85730; 87040; 87804; 93005; 94760; 96365; 96367; 99285; J0456; J0696; J1160; J1650; J2543; J2930; J7030; J7512

== ENCOUNTER 2022-03-10 20:15 | Emergency (ER) | payer OTHER ==
--- OUTSIDE RECORDS SUMMARY | 2022-03-10 20:18 | XMS REPORT | Continuity of Care Document ---
:1945 Author Organization [facility] t Address [address] [place] [address] Care Team Providers Name Role Phone CHAD Attending Clinician Unavailable Payers Payer Name Policy Type Policy Number Effective Date Expiration Date S clay [employer] MED[employer]ARE ADV [id number] 2018 00:00:00 Problems This patient has no known problems. Allergies, Adverse Reactions, Alerts Allergy Allergy Status Severity Reaction(s) Onset Inactive Treating Comm ents Source Name Type Date Date Clinician NO KNOWN Drug Active [facility] ALLERGIE Class [facility] Medications This patient has no known medications. Procedures This patient has no known procedures. Encounters Start End Encounter Admission Attending Care Care Encounter Source Date/Time Date/Time Type Type Clinicians Facility Department ID 2021-01-06 2021-01-06 Outpatient R CHAD [facility] [id number] [facility] 16:20:00 16:20:00 AMAYA [facility] 2021-01-06 2021-01-06 Outpatient R [facility] [id number] [facility] 16:20:00 16:20:00 [id number] [facility] Results This patient has no known results.
--- NOTE | 2022-03-10 21:36 | RAD REPORT ---
EXAM DESCRIPTION: RAD - Chest Pa And Lat (2 Views) - 03/10/2022 9:23 pm CLINICAL HISTORY: COUGH Chest pain. COMPARISON: Chest Pa And Lat (2 Views) dated 01/10/2020; Chest Pa And Lat (2 Views) dated 01/03/2020; Chest Pa And Lat (2 Views) dated 12/27/2019; Chest Pa And Lat (2 Views) dated 12/26/2019 FINDINGS: Prominent diffuse emphysematous pattern is present. The heart is normal in size. No displa rajan fractures. Very prominent S-shaped scoliosis of the spine. IMPRESSION: Advanced COPD.
--- NOTE | 2022-03-10 22:14 | ER ---
Nurse's Notes [facility] Name: Gabbie Rich Age: 76 yrs Sex: Female : 1945 Arrival Date: 03/10/2022 Time: 20:18 Bed 11 Private MD: Diagnosis: Coronavirus infection, unspecified Presentation: 03/10 20:21 Chief complaint: Patient states: Recently tested + positive for covid. Wants to be iw checked out because pt has lung problems. Coronavirus screen: Client presents with at least one sign or symptom that may indicate coronavirus-19. Standard/surgical mask placed on the client. Ebola Screen: No symptoms or risks identified at this time. Initial Sepsis Screen: Does the patient meet any 2 criteria? No. Patient's initial sepsis screen is negative. Does the patient have a suspected source of infection? No. Patient's initial sepsis screen is negative. Risk Assessment: Do you want to hurt yourself or someone else? Patient reports no desire to harm self or others. Onset of symptoms was March 10, 2022. 20:21 Method Of Arrival: Ambulatory iw 20:21 Acuity: SENAIT 3 iw Triage Assessment: 20:23 General: Appears in no apparent distress. comfortable, Behavior is cooperative, iw anxious. Pain: Denies pain. EENT: No signs and/or symptoms were reported regarding the EENT system. Neuro: Level of Consciousness is awake, alert, obeys commands, Oriented to person, place, time, situation. Cardiovascular: Capillary refill < 3 seconds Patient's skin is warm and dry. Respiratory: Reports cough that is Airway is patent Respiratory effort is even, unlabored, Onset: The symptoms/episode began/occurred gradually, the patient has mild shortness of breath. GI: Abdomen is flat, non-distended. : No signs and/or symptoms were reported regarding the genitourinary system. Historical: - Allergies: 20:23 No Known Allergies; iw - PMHx: 20:23 CHF; Hypertension; pulmonary fibrosis; Hypothyroidism; restless leg syndrome; iw - PSHx: 20:23 None; iw - Immunization history:: Adult Immunizations up to date, Client reports receiving the 2nd dose of the Covid vaccine. - Social history:: Smoking status: Patient denies any tobacco usage or history of. Patient uses alcohol, occasionally. Screenin:52 Abuse screen: Denies threats or abuse. Denies injuries from another. Nutritional ld1 screening: No deficits noted. Tuberculosis screening: No symptoms or risk factors identified. Fall Risk None identified. Assessment: 20:52 Reassessment: See triage assessmetn. Neuro: Level of Consciousness is awake, alert, ld1 obeys commands, Oriented to person, place, time, situation. Cardiovascular: Rhythm is regular. Respiratory: Airway is patent Respiratory effort is even, unlabored, Breath sounds are clear bilaterally. 21:13 Reassessment: Patient returned from Radiology. lp1 21:14 General: Appears in no apparent distress. slender, Behavior is calm, cooperative. Pain: lp1 Denies pain. Respiratory: Reports cough that is persistent Airway is patent Respiratory effort is even, Respiratory pattern is regular, symmetrical, Breath sounds are clear bilaterally. EENT: Reports nasal discharge that is watery since 5 days ago. Derm: Skin is pink, warm \T\ dry. Musculoskeletal: No deficits noted. Vital Signs: 20:21 BP 128 / 78; Pulse 81; Resp 18; Temp 98.1(TE); Pulse Ox 100% on R/A; Weight 36.29 kg; iw Height 5 ft. 0 in. (152.40 cm); Pain 0/10; 21:14 Pulse 61; Resp 18; Pulse Ox 98% on R/A; lp1 20:21 Body Mass Index 15.62 (36.29 kg, 152.40 cm) iw ED Course: 20:18 Patient arrived in ED. jj6 20:23 Triage completed. iw 20:23 Arm band placed on right wrist. iw 20:27 Kwame Jacob NP is PHCP. pm1 20:27 Jordy Liu MD is Attending Physician. pm1 20:30 Jennifer Rudd, VENUS is Primary Nurse. ld1 20:52 Patient has correct armband on for positive identification. Bed in low position. Call ld1 light in reach. Side rails up X2. panel monitor on. Pulse ox on. NIBP on. Door closed. Noise minimized. Warm blanket given. 20:52 No provider procedures requiring assistance completed. ld1 20:56 COVID swab sent to lab. Flu and/or RSV swab sent to lab. lp1 21:25 Chest Pa And Lat (2 Views) XRAY In Process Unspecified. EDMS 21:53 Notified Nurse Practitioner and/or Physician Radiographer of a critical lab result(s), lp1 COVID Positive. 22:15 Patient did not have IV access during this emergency room visit. lp1 Administered Medications: No medications were administered Medication: 20:52 VIS not applicable for this client. ld1 Outcome: 22:13 Discharge ordered by MD. pm1 22:16 Discharged to home ambulatory, with family. lp1 22:16 Condition: good 22:16 Discharge instructions given to patient, Instructed on discharge instructions, follow up and referral plans. medication usage, Demonstrated understanding of instructions, follow-up care, medications, Prescriptions given X 2. 22:18 Patient left the ED. lp1 Signatures: Dispatcher [employer] EDMS Janeth Coyle RN RN Marianne Ovalle RN RN lp1 Kwame Jacob, SAMPLING EXPERT SAMPLING EXPERT pm1 Jennifer Rudd RN RN ld1 Delmy Cummings jj6
--- NOTE | 2022-03-10 22:14 | EDPHYS ---
Physician Documentation [facility] Name: Gabbie Rich Age: 76 yrs Sex: Female : 1945 Arrival Date: 03/10/2022 Time: 20:18 Bed 11 Private MD: ED Physician Jordy Liu HPI: 03/10 20:39 This 76 yrs old Female presents to ER via Ambulatory with complaints of Runny Nose, pm1 Cough, Positive for COVID. 20:39 The patient or guardian reports cough, with no sputum, Runny nose. Onset: The pm1 symptoms/episode began/occurred 4 day(s) ago. Severity of symptoms: in the emergency department the symptoms are unchanged. Modifying factors: The symptoms are alleviated by nothing, the symptoms are aggravated by nothing. Associated signs and symptoms: Pertinent negatives: diarrhea, vomiting, Shortness of breath, fever, chest pain, nausea. The patient has not experienced similar symptoms in the past. The patient has not recently seen a physician. Historical: - Allergies: 20:23 No Known Allergies; iw - PMHx: 20:23 CHF; Hypertension; pulmonary fibrosis; Hypothyroidism; restless leg syndrome; iw - PSHx: 20:23 None; iw - Immunization history:: Adult Immunizations up to date, Client reports receiving the 2nd dose of the Covid vaccine. - Social history:: Smoking status: Patient denies any tobacco usage or history of. Patient uses alcohol, occasionally. ROS: 20:39 Constitutional: Negative for fever, chills, and weight loss, Cardiovascular: Negative pm1 for chest pain, palpitations, and edema. 20:39 Abdomen/GI: Negative for abdominal pain, nausea, vomiting, diarrhea, and constipation, Back: Negative for injury and pain. 20:39 MS/Extremity: Negative for injury and deformity, Skin: Negative for injury, rash, and discoloration, Neuro: Negative for headache, weakness, numbness, tingling, and seizure. 20:39 ENT: Positive for rhinorrhea, Negative for sore throat. 20:39 Respiratory: Positive for cough, Negative for shortness of breath, wheezing. 20:39 All other systems are negative. Exam: 20:39 Constitutional: This is a well developed, well nourished patient who is awake, alert, pm1 and in no acute distress. Head/Face: Normocephalic, atraumatic. 20:39 Back: No spinal tenderness. No costovertebral tenderness. Full range of motion. Skin: Warm, dry with normal turgor. Normal color with no rashes, no lesions, and no evidence of cellulitis. 20:39 MS/ Extremity: Pulses equal, no cyanosis. Neurovascular intact. Full, normal range of motion. 20:39 Cardiovascular: Exam negative for acute changes, Rate: normal, Rhythm: regular, Pulses: no pulse deficits are appreciated, Heart sounds: normal. 20:39 Respiratory: Exam negative for acute changes, respiratory distress, shortness of breath, Breath sounds: are clear throughout. 20:39 Abdomen/GI: Exam negative for acute changes, Inspection: abdomen appears normal, Palpation: abdomen is soft and non-tender, in all quadrants. 20:39 Neuro: Exam negative for acute changes, Orientation: is normal, Mentation: is normal, Motor: is normal, moves all fours. Vital Signs: 20:21 BP 128 / 78; Pulse 81; Resp 18; Temp 98.1(TE); Pulse Ox 100% on R/A; Weight 36.29 kg; iw Height 5 ft. 0 in. (152.40 cm); Pain 0/10; 21:14 Pulse 61; Resp 18; Pulse Ox 98% on R/A; lp1 20:21 Body Mass Index 15.62 (36.29 kg, 152.40 cm) iw MDM: 20:37 Patient medically screened. pm1 22:11 Data reviewed: vital signs. Data interpreted: Pulse oximetry: on room air is 98 %. pm1 Interpretation: normal. Counseling: I had a detailed discussion with the patient and/or guardian regarding: the historical points, exam findings, and any diagnostic results supporting the discharge/admit diagnosis, lab results, radiology results, the need for outpatient follow up, to return to the emergency department if symptoms worsen or persist or if there are any questions or concerns that arise at home. 03/10 20:39 Order name: COVID-19 SARS RT PCR (Document "Date of Onset" if Symptomatic); Complete pm1 Time: 22:02 03/10 20:39 Order name: Flu; Complete Time: 22:02 pm1 03/10 20:39 Order name: Chest Pa And Lat (2 Views) XRAY; Complete Time: 22:02 pm1 Administered Medications: No medications were administered Disposition: 03/11 03:47 Co-signature as Attending Physician, Jordy Liu MD. rn Disposition Summary: 03/10/22 22:13 Discharge Ordered Location: Home pm1 Problem: new pm1 Symptoms: have improved pm1 Condition: Stable pm1 Diagnosis - Coronavirus infection, unspecified pm1 Followup: pm1 - With: Emergency Department - When: As needed - Reason: Worsening of condition Followup: pm1 - With: Private Physician - When: 2 - 3 days - Reason: Recheck today's complaints, Continuance of care, Re-evaluation by your physician Discharge Instructions: - Discharge Summary Sheet pm1 - COVID-19 pm1 - COVID-19 Frequently Asked Questions pm1 - 10 Things You Can Do to Manage Your COVID-19 Symptoms at Home - [facility] pm1 - COVID-19: Quarantine vs. Isolation - [facility] pm1 Forms: - Medication Reconciliation Form pm1 - Thank You Letter pm1 - Antibiotic Education pm1 - Prescription Opioid Use pm1 Prescriptions: - PAXLOVID - take 3 tablet by ORAL route every 12 hours for 5 days 300 mg nirmatrelvir plus pm1 100 mg ritonavir PO BID for 5 days; 1 packet; Refills: 0, Product Selection Permitted - Zithromax Z-Michael 250 mg Oral Tablet - take 1 tablet by ORAL route as directed for 5 days Day 1 - take two (2) tablets pm1 one time. Day 2, 3, 4 , 5 take one (1) tablet once daily.; 6 tablet; Refills: 0, Product Selection Permitted Signatures: Dispatcher [employer] Janeth Gutierrez RN RN iw Nieto, Roman, MD MD rn Marinas, Patrick, NP [employer] ATTENDANT pm1
[2022-03-10 22:24] VITALS: BP 128/78; TEMP 98.1
[2022-03-10 22:25] VITALS: O2SAT 98
== END 2022-03-10 22:18 | disposition home or self-care (01) ==
LOC: ER 20:15
DX: U07.1 COVID-19 (principal); I50.9 Heart failure, unspecified; I10 Essential (primary) hypertension; E03.9 Hypothyroidism, unspecified; G25.81 Restless legs syndrome; J84.10 Pulmonary fibrosis, unspecified
CPT/HCPCS: 87804 ×2; 71046; 99284; U0003

== ENCOUNTER 2022-03-14 18:51 | Inpatient (IN) | payer OTHER ==
--- OUTSIDE RECORDS SUMMARY | 2022-03-14 18:53 | XMS REPORT | Continuity of Care Document ---
:1945 Author Organization [facility] t Address [address] [place] [address] Care Team Providers Name Role Phone CHAD Attending Clinician Unavailable Payers Payer Name Policy Type Policy Number Effective Date Expiration Date S clay [employer] MEDICARE ADV [id number] 00:00:00 Problems This patient has no known problems. Allergies, Adverse Reactions, Alerts Allergy Allergy Status Severity Reaction(s) Onset Inactive Treating Comm ents Source Name Type Date Date Clinician NO KNOWN Drug Active [facility] ALLERGIE Class [facility] Medications This patient has no known medications. Procedures This patient has no known procedures. Encounters Start End Encounter Admission Attending Care Care Encounter Source Date/Time Date/Time Type Type Clinicians Facility Department ID 2021-01-06 2021-01-06 Outpatient R CHAD [facility] [id number] [facility] 16:20:00 16:20:[address] [facility] 2021-01-06 2021-01-06 Outpatient R [facility] [id number] [facility] 16:20:00 16:20:[id number] [facility] Results This patient has no known results.
[2022-03-14 19:41] LABS: Absolute Lymphocytes (CBC) 0.8 K/uL (0.7-4.9); Hematocrit 38.7 % (36.0-45.0); Lymphocytes % 5.5 % (15.3-44.8); MPV 6.9 fL (7.6-11.3); RBC Red Blood Cell Count 4.31 M/uL (3.86-4.86)
[2022-03-14] MEDS ORDERED: NA CHLORIDE 0.9% 100 ML ONE (19:47)
[2022-03-14] MEDS ORDERED: PIPERACIL/TAZO 3.375 GM VIAL IV ONE (19:47)
[2022-03-14 20:36] LABS: Troponin High Sensitivity 11.8 pg/mL (<58.9)
[2022-03-14 20:37] LABS: Potassium 5.5 mmol/L (3.5-5.1)
--- NOTE | 2022-03-14 20:53 | EDPHYS ---
Physician Documentation [facility] Name: Gabbie Rich Age: 76 yrs Sex: Female : 1945 Arrival Date: 03/14/2022 Time: 18:52 Bed 11 Private MD: ED Physician Hi Pratt HPI: 03/14 20:43 This 76 yrs old Female presents to ER via Wheelchair with complaints of covid symptoms ms3 worsening. 20:43 The patient has shortness of breath with light activity. Onset: The symptoms/episode ms3 began/occurred 4 day(s) ago. Duration: The symptoms are continuous, and are steadily getting worse. The patient's shortness of breath has no apparent modifying factors. Associated signs and symptoms: The patient has no apparent associated signs or symptoms. Severity of symptoms: At their worst the symptoms were moderate in the emergency department the symptoms are unchanged. Dx with Covid 4 days ago. Concerned as symptoms have become worse.. Historical: - Allergies: 18:57 No Known Allergies; tw2 - PMHx: 18:57 Hypertension; Hypothyroidism; pulmonary fibrosis; restless leg syndrome; CHF; tw2 - Immunization history:: Client reports receiving the 2nd dose of the Covid vaccine. - Social history:: Smoking status: Patient denies any tobacco usage or history of. Patient uses alcohol, occasionally. ROS: 20:43 Constitutional: Negative for fever, and chills. Neck: Negative for injury, pain, and ms3 swelling, Cardiovascular: Negative for chest pain, and palpitations. Abdomen/GI: Negative for abdominal pain, nausea, vomiting, diarrhea, and constipation, MS/Extremity: Negative for injury and deformity, Skin: Negative for injury, rash, and discoloration, Neuro: Negative for headache, weakness, numbness, tingling. 20:43 Respiratory: Positive for shortness of breath. ms3 Exam: 19:44 ECG was reviewed by the Attending Physician. ms3 20:43 Constitutional: This is a well developed, well nourished patient who is awake, alert, ms3 and in no acute distress. Head/Face: Normocephalic, atraumatic. Neck: Trachea midline, no cervical lymphadenopathy. Supple, full range of motion without nuchal rigidity, or vertebral point tenderness. No Meningismus. Cardiovascular: Regular rate and rhythm with a normal S1 and S2. No gallops, murmurs, or rubs. Normal PMI, no JVD. No pulse deficits. Respiratory: Lungs have equal breath sounds bilaterally, clear to auscultation and percussion. No rales, rhonchi or wheezes noted. No increased work of breathing, no retractions or nasal flaring. Abdomen/GI: Soft, non-tender, with normal bowel sounds. No distension or tympany. No guarding or rebound. No evidence of tenderness throughout. Skin: Warm, dry with normal turgor. Normal color with no rashes, no lesions, and no evidence of cellulitis. MS/ Extremity: Pulses equal, no cyanosis. Neurovascular intact. Full, normal range of motion. Psych: Awake, alert, with orientation to person, place and time. Behavior, mood, and affect are within normal limits. Vital Signs: 18:54 BP 142 / 67; Pulse 87; Resp 17; Temp 98.2(TE); Pulse Ox 99% on R/A; Weight 36.29 kg tw2 (R); Height 5 ft. 0 in. (152.40 cm); 20:24 BP 139 / 66; Pulse 84; Resp 16; Pulse Ox 99% on R/A; ld1 22:25 BP 131 / 65; Pulse 82; Resp 16; Pulse Ox 99% on R/A; ld1 18:54 Body Mass Index 15.62 (36.29 kg, 152.40 cm) tw2 MDM: 19:16 Patient medically screened. 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 Data ms3 reviewed: vital signs, nurses notes, lab test result(s), EKG, radiologic studies. Data interpreted: Pulse oximetry: on room air is 99 %. Interpretation: normal. Counseling: I had a detailed discussion with the patient and/or guardian regarding: the historical points, exam findings, and any diagnostic results supporting the discharge/admit diagnosis, lab results, radiology results, the need for further work-up and treatment in the hospital. ED course: Discussed case with JEFF Jones, and she accepts patient as inpatient on behalf of Dr Haskins. All questions answered. Return precautions given.. 03/14 19:22 Order name: Basic Metabolic Panel; Complete Time: 20:40 ms3 03/14 19:22 Order name: CBC with Diff; Complete Time: 20:40 ms3 03/14 19:22 Order name: NT PRO-BNP; Complete Time: 20:40 ms3 03/14 19:22 Order name: Troponin HS; Complete Time: 20:40 ms3 03/14 19:22 Order name: XRAY Chest (1 view); Complete Time: 21:15 ms3 03/14 21:15 Order name: COVID-19 SARS RT PCR (Document "Date of Onset" if Symptomatic) vc1 03/14 19:22 Order name: EKG; Complete Time: 19:23 ms3 03/14 19:22 Order name: Cardiac monitoring; Complete Time: 19:49 ms3 03/14 19:22 Order name: EKG - Nurse/Tech; Complete Time: 19:49 ms3 03/14 19:22 Order name: IV Saline Lock; Complete Time: 19:26 ms3 03/14 19:22 Order name: Labs collected and sent; Complete Time: 19:26 ms3 03/14 19:22 Order name: O2 Per Protocol; Complete Time: 19:26 ms3 03/14 19:22 Order name: O2 Sat Monitoring; Complete Time: 19:26 ms3 EC:44 Rate is 65 beats/min. Rhythm is regular. QRS [place] is Normal. Clinical impression: Sinus ms3 rhythm with preventricular complexes. Interpreted by me. Administered Medications: No medications were administered Disposition Summary: 03/14/22 20:53 Hospitalization Ordered Hospitalization Status: Inpatient Admission ms3 Provider: Wayne Haskins ms3 Location: Telemetry/MedSurg (Inpatient) ms3 Condition: Stable ms3 Problem: new ms3 Symptoms: are unchanged ms3 Bed/Room Type: Standard ms3 Room Assignment: 417(03/14/22 22:22) Diagnosis - COVID 19 ms3 - Congestive Heart failure ms3 - Shortness of breath ms3 - Hypo-osmolality and hyponatremia ms3 - Hyperkalemia ms3 - Acute Kidney Injury ms3 Forms: - Medication Reconciliation Form ms3 - SBAR form ms3 Signatures: Dispatcher [employer] EDNE Lisa Cleveland RN RN mw Wise, Tara, RN RN tw2 Hi Pratt DO DO ms3 Corrections: (The following items were deleted from the chart) 20:45 20:43 Constitutional: Negative for fever, and chills. Neck: Negative for injury, pain, ms3 and swelling, Cardiovascular: Negative for chest pain, and palpitations. Respiratory: Negative for shortness of breath, cough, wheezing, and pleuritic chest pain, Abdomen/GI: Negative for abdominal pain, nausea, vomiting, diarrhea, and constipation, MS/Extremity: Negative for injury and deformity, Skin: Negative for injury, rash, and discoloration, Neuro: Negative for headache, weakness, numbness, tingling. ms3 22:22 20:53 ms3 mw
--- NOTE | 2022-03-14 20:53 | ER ---
Nurse's Notes [facility] Name: Gabbie Rich Age: 76 yrs Sex: Female : 1945 Arrival Date: 03/14/2022 Time: 18:52 Bed 11 Private MD: Diagnosis: COVID 19;Congestive Heart failure;Shortness of breath;Hypo-osmolality and hyponatremia;Hyperkalemia;Acute Kidney Injury Presentation: 03/14 18:54 Chief complaint: Patient states: i have heartburn right in the center. she is taking tw2 the covid medicine. still runny and coughing. drainage is making her cough Patient's son or daughter states: she got COVID Friday and was positive after being around someone sick with covid. Coronavirus screen: congestion, cough unrelated to allergies, diarrhea Client presents with at least one sign or symptom that may indicate coronavirus-19. Standard/surgical mask placed on the client. Provider contacted for isolation considerations. Ebola Screen: Patient denies travel to an Ebola-affected area in the 21 days before illness onset. Initial Sepsis Screen: Does the patient meet any 2 criteria? No. Patient's initial sepsis screen is negative. Does the patient have a suspected source of infection? No. Patient's initial sepsis screen is negative. Risk Assessment: Do you want to hurt yourself or someone else? Patient reports no desire to harm self or others. Onset of symptoms was March 14, 2022. 18:54 Method Of Arrival: Wheelchair tw2 18:54 Acuity: SENAIT 3 tw2 Triage Assessment: 18:57 General: Appears in no apparent distress. slender, Behavior is calm, cooperative, tw2 appropriate for age. Pain: Complains of pain in heartburn. GI: Reports diarrhea, heartburn. Historical: - Allergies: 18:57 No Known Allergies; tw2 - PMHx: 18:57 Hypertension; Hypothyroidism; pulmonary fibrosis; restless leg syndrome; CHF; tw2 - Immunization history:: Client reports receiving the 2nd dose of the Covid vaccine. - Social history:: Smoking status: Patient denies any tobacco usage or history of. Patient uses alcohol, occasionally. Screenin:01 Abuse screen: Denies threats or abuse. Nutritional screening: No deficits noted. tw2 Tuberculosis screening: No symptoms or risk factors identified. Fall Risk None identified. Assessment: 20:24 Reassessment: See triage assessment. ld1 Vital Signs: 18:54 BP 142 / 67; Pulse 87; Resp 17; Temp 98.2(TE); Pulse Ox 99% on R/A; Weight 36.29 kg tw2 (R); Height 5 ft. 0 in. (152.40 cm); 20:24 BP 139 / 66; Pulse 84; Resp 16; Pulse Ox 99% on R/A; ld1 22:25 BP 131 / 65; Pulse 82; Resp 16; Pulse Ox 99% on R/A; ld1 18:54 Body Mass Index 15.62 (36.29 kg, 152.40 cm) tw2 ED Course: 18:52 Patient arrived in ED. as 18:56 Triage completed. tw2 18:57 Arm band placed on. tw2 18:57 Bed in low position. Call light in reach. Adult w/ patient. tw2 19:05 Hi Pratt DO is Attending Physician. ms3 19:13 Jennifer Rudd, RN is Primary Nurse. ld1 19:26 Inserted saline lock: 20 gauge in left antecubital area, using aseptic technique. Blood ld1 collected. 20:25 No provider procedures requiring assistance completed. ld1 20:26 XRAY Chest (1 view) In Process Unspecified. EDMS 20:52 Wayne Haskins MD is Hospitalizing Provider. ms3 Administered Medications: No medications were administered Medication: 20:25 VIS not applicable for this client. ld1 Outcome: 20:53 Decision to Hospitalize by Provider. ms3 23:27 Patient left the ED. ld1 Signatures: Dispatcher [employer] EDMS Belkis Moise Tara, RN RN tw2 Hi Pratt DO DO ms3 Jennifer Rudd, VENUS RN ld1
--- NOTE | 2022-03-14 21:02 | RAD REPORT ---
EXAM DESCRIPTION: Charlie Single View03/14/2022 8:24 pm CLINICAL HISTORY: sob COMPARISON: February 2022 FINDINGS: The lungs are mildly to moderately hyperaerated. The lungs appear clear of acute infiltrate. The heart is normal size IMPRESSION: No acute abnormalities displayed
--- NOTE | 2022-03-14 23:23 | P.HP ---
Certification for Inpatient Patient admitted to: Inpatient With expected LOS: <2 Midnights Patient will require the following post-hospital care: None Practitioner: I am a practitioner with admitting privileges, knowledge of patient current condition, hospital course, and medical plan of care. Services: Services provided to patient in accordance with Admission requirements found in Title 42 Section 412.3 of the Code of Federal Regulations Patient History Date of Service: 03/15/22 Primary Care Provider: Li (out of town) Reason for admission: COVID, JOSH, Hyponatremia, Hyperkalemia History of Present Illness: Patient is a 76-year-old female with pulmonary fibrosis, pulmonary HTN, dilated cardiomyopathy, systolic CHF (EF 43%), hypothyroidism, hypertension who presented to the ED with complaints of worsening COVID-19 symptoms. Patient was seen in the ED 4 days ago, diagnosed with COVID, and discharged with a prescrip tion for Paxlovid and azithromycin. She states that she has been taking the medications as prescribed, but it has made her stomach upset and therefore caused her to eat and drink less the past few days. She is complaining of shortness of breath and heartburn today. Labs significant for sodium 127, potassium 5.5, creatinine 2.13, BNP 3400, chest x-ray without acute abnormalities. ED provider wishes to admit patient for further evaluation and treatment. Allergies No Known Allergies Allergy (Verified 12/25/19 04:11) Home medications list reviewed: Yes Home Medications: Levothyroxine Sodium 50 mcg PO DIRECTED 02/24/19 Levothyroxine Sodium 75 mcg PO DIRECTED 02/24/19 Ropinirole HCl 2 mg PO TID PRN 02/24/19 lisinopriL [Lisinopril] 5 mg PO DAILY #30 tablet 02/27/19 Furosemide [Lasix] 3 tab PO DAILY 12/25/19 Montelukast [Singulair*] 10 mg PO DAILY 03/14/22 Nirmatrelvir/Ritonavir [Paxlovid 150-100 mg Pack (Eua)] 3 tab PO BID 03/14/22 Spironolactone [Aldactone*] 25 mg PO BID 03/14/22 - Past Medical/Surgical History Diabetic: No -: Hypertension -: Hypothyroid -: CHF -: Asthma -: Severe restless legs -: Pulmonary fibrosis -: Hysterectomy -: Right hip replacement Psychosocial/ Personal History: Patient lives at home. Her daughter helps take care of her. - Family History Mother -: Heart disease, Stroke, Other (see notes) Notes: CHF; HTN - Social History Smoking Status: Never smoker Alcohol use: Yes CD- Drugs: No Caffeine use: Yes Place of Residence: Home Review of Systems General: Weakness Respiratory: Cough, Shortness of Breath Physical Examination - Physical Exam General: Alert, In no apparent distress, Cachectic HEENT: Atraumatic, PERRLA, EOMI, Sclerae nonicteric Neck: Supple, 2+ carotid pulse no bruit, No LAD, Without JVD or thyroid abnormality Respiratory: Clear to auscultation bilaterally, Normal air movement Cardiovascular: No edema, Regular rate/rhythm, Normal S1 S2 Gastrointestinal: Normal bowel sounds, No tenderness Musculoskeletal: No tenderness Integumentary: No rashes Neurological: Normal speech, Normal strength at 5/5 x4 extr, Normal affect - Studies Laboratory Data (last 24 hrs) 03/14/22 19:25: WBC 14.4 H, Hgb 12.8, Hct 38.7, Plt Count 361 03/14/22 19:25: Sodium 127 L, Potassium 5.5 H, BUN 59 H, Creatinine 2.13 H, Glucose 120 H Assessment and Plan - Problems (Diagnosis) (1) COVID-19 Current Visit: Yes Status: Acute (2) Hyponatremia Current Visit: Yes Status: Acute (3) Hyperkalemia Current Visit: Yes Status: Acute (4) Dehydration Current Visit: Yes Status: Acute (5) Acute kidney failure Current Visit: Yes Status: Acute Qualifiers: Acute renal failure type: unspecified Qualified Code(s): N17.9 - Acute kidney failure, unspecified (6) Congestive heart failure (CHF) Current Visit: Yes Status: Acute Qualifiers: Heart failure type: systolic Heart failure chronicity: acute on chronic Qualified Code(s): I50.23 - Acute on chronic systolic (congestive) heart failure (7) Hypertension Current Visit: Yes Status: Chronic Qualifiers: Hypertension type: primary hypertension Qualified Code(s): I10 - Essential (primary) hypertension (8) Hypothyroidism Current Visit: No Status: Chronic Qualifiers: Hypothyroidism type: acquired Qualified Code(s): E03.9 - Hypothyroidism, unspecified (9) Pulmonary fibrosis Current Visit: Yes Status: Chronic - Plan COVID-19: Scheduled nebs, zinc & vitamin C, anti tussives, IV solumedrol JOSH and hyponatremia secondary to dehydration: urine creatinine, urine sodium, urine osmolality, uric acid, serum osmolality pending. Patient does have CHF but I suspect hyponatremia is hypovolemic as patient has decreased PO intake the past few days. Gentle IV hydration. Nephrology consulted. Hyperkalemia: Could be falsely elevated due to hypovolemia. Patient on telemetry. Will monitor CMP. Systolic CHF: patient not overloaded at this time. BNP 3400. Cont diuretics as appropriate. Hypertension, Hypothyroidism, Pulmonary Fibrosis: stable. obtain and continue home medications Heparin for VTE ppx Full code Discharge Plan: Home Plan to discharge in: 48 Hours - Advance Directives Does patient have a Living Will: Yes Does patient have a Durable POA for Healthcare: Yes - Code Status/Comfort Care Code Status Assessed: Yes (Full) Critical Care: No Time Spent Managing Pts Care (In Minutes): 70
[2022-03-14] MEDS ORDERED: HYDROCODONE/CHLORPHEN 5 ML/OSYR PO PRN (23:39)
[2022-03-14] MEDS ORDERED: ACETAMINOPHEN 500 MG TAB PO PRN (23:39)
[2022-03-14] MEDS ORDERED: NA CHLORIDE 0.9% 1,000 ML IV SCH (23:39)
[2022-03-15] MEDS: METHYLPREDNISOLONE 40 MG INJ IV SCH ×3 (00:39→16:39)
[2022-03-15] MEDS: HEPARIN 5000 UNIT/ML 1 ML VIAL SQ SCH ×3 (00:39→16:39)
[2022-03-15] MEDS: ALBUTEROL 2.5 MG/3 ML NEB SOL NEB SCH ×4 (01:12→20:00)
[2022-03-15] MEDS: IPRATROPIUM BROM 0.5MG/2.5ML NEB SCH ×4 (01:12→20:00)
[2022-03-15 04:25] LABS: Absolute Lymphocytes (CBC) 0.4 K/uL (0.7-4.9); Hematocrit 35.4 % (36.0-45.0); Lymphocytes % 2.5 % (15.3-44.8); MPV 6.8 fL (7.6-11.3); RBC Red Blood Cell Count 3.97 M/uL (3.86-4.86)
[2022-03-15 05:00] LABS: Albumin 2.8 g/dL (3.4-5.0); Bilirubin Total 0.4 mg/dL (0.2-1.0); Magnesium 2.1 mg/dL (1.8-2.4); Phosphorus 2.6 mg/dL (2.5-4.9); Protein, Total 6.2 g/dL (6.4-8.2); Thyroid Stimulating Hormone 1.04 uIU/mL (0.360-3.740)
[2022-03-15 05:33] LABS: Potassium 5.9 mmol/L (3.5-5.1)
[2022-03-15] MEDS ORDERED: SOD POLYSTYREN SUL 15 GM/60 ML UCUP PO ONE (05:43)
[2022-03-15 07:59] LABS: Urine Appearance Clear (Clear); Urine Bilirubin Negative (Negative); Urine Blood Negative (Negative); Urine Color Yellow (Yellow); Urine Glucose Negative (Negative); Urine Microscopic Reflex NO UMIC; Urine Protein Negative (Negative); Urine Specific Gravity 1.015 (1.005-1.030); Urine Urobilinogen 0.2 mg/dL (0.2-1.0)
[2022-03-15] MEDS: ASCORBIC ACID 500 MG TABLET PO SCH (09:00)
[2022-03-15] MEDS: FAMOTIDINE 20 MG/2 ML VIAL IV SCH (09:00)
[2022-03-15] MEDS: ZINC SULFATE 220 MG CAP PO SCH (09:00)
--- NOTE | 2022-03-15 11:16 | P.CNS ---
Date of Consult: 03/15/22 Reason for Consult: renal failure Requesting Physician: Wayne Haskins Primary Care Provider: Li (out of town) Chief Complaint: COVID, JOSH, Hyponatremia, Hyperkalemia History of Present Illness: 76F w/ PMHx of CKD3a presumed to be 2/2 Htn nephrosclerosis, baseline SCr 1.0- 1.2 (equiv GFR 45-54) as of December 2021, Htn, pulmonary fibrosis, pulmonary HTN, dilated cardiomyopathy, systolic CHF (EF 43%), hypothyroidism, & recently diagnosed covid infection who p/w SOB. She was diagnosed w/ covid infection 4 days [employer], & c/o SOB SOB & heartburn on adm. SCr noted to be elevated at 2.1. She has hyperkalemia. IVF & IV lasix received. Allergies No Known Allergies Allergy (Verified 12/25/19 04:11) Home medications list reviewed: No Home Medications: Levothyroxine Sodium 50 mcg PO DIRECTED 02/24/19 Levothyroxine Sodium 75 mcg PO DIRECTED 02/24/19 Ropinirole HCl 2 mg PO TID PRN 02/24/19 lisinopriL [Lisinopril] 5 mg PO DAILY #30 tablet 02/27/19 Furosemide [Lasix] 3 tab PO DAILY 12/25/19 Montelukast [Singulair*] 10 mg PO DAILY 03/14/22 Nirmatrelvir/Ritonavir [Paxlovid 150-100 mg Pack (Eua)] 3 tab PO BID 03/14/22 Spironolactone [Aldactone*] 25 mg PO BID 03/14/22 - Past Medical/Surgical History Diabetic: No -: Hypertension -: Hypothyroid -: CHF -: Asthma -: Severe restless legs -: Pulmonary fibrosis -: Hysterectomy -: Right hip replacement Psychosocial/ Personal History: Patient lives at home. Her daughter helps take care of her. - Family History Mother Medical History: Heart disease, Stroke, Other (see notes) Notes: CHF; HTN - Social History Alcohol use: Yes CD- Drugs: No Caffeine use: Yes Place of Residence: Home Review of Systems General: Weakness Eyes: Unremarkable ENT: Unremarkable Respiratory: Shortness of Breath, SOB with Excertion Cardiovascular: Unremarkable Gastrointestinal: Other (Heartburn) Genitourinary: Unremarkable Musculoskeletal: Unremarkable Integumentary: Unremarkable Neurological: Unremarkable Lymphatics: Unremarkable Physical Examination Temp Pulse Resp BP Pulse Ox 97.3 F 74 16 139/62 98 03/15/22 08:00 03/15/22 08:00 03/15/22 08:00 03/15/22 08:00 03/15/22 08:00 General: Alert, In no apparent distress HEENT: Atraumatic, Normocephalic Neck: Supple, JVD not distended Respiratory: Clear to auscultation bilaterally, Other (symmetric chest expansion) Cardiovascular: No rubs, No murmurs Gastrointestinal: Soft and benign, No rebound Musculoskeletal: No clubbing Integumentary: No warmth Neurological: Normal speech, Normal tone Lymphatics: No axilla or inguinal lymphadenopathy Urinary: Other (No bladder distention) External genitalia: Deferred Rectal: Deferred Laboratory Data (last 24 hrs) 03/14/22 19:25: WBC 14.4 H, Hgb 12.8, Hct 38.7, Plt Count 361 03/14/22 19:25: Sodium 127 L, Potassium 5.5 H, BUN 59 H, Creatinine 2.13 H, Glucose 120 H Conclusions/Impression: # JOSH 2/2 prerenal state +/- ATN from prolonged prerenal SCr 2.1 on adm Received IVF SCr improved to 1.8 Urine chem showed high Isabela + high uK c/w diuretic effect F/u upcr, pth Cont NS 75 cc/hr Monitor renal panel # CKD3a presumed to be 2/2 Htn nephrosclerosis Baseline SCr 1.0-1.2 (equiv GFR 45-54) as of 12/26/2021 Monitor renal panel # Hyponatremia Serum Na 127 Avoid hypotonic IVF # Hyperkalemia IV lasix + IVF # Htn BP at goal, monitor # Hx of pulmonary fibrosis, pulmonary HTN, dilated cardiomyopathy, systolic CHF (EF 43%) Per primary team # COVID infection Per primary team
[2022-03-15] MEDS ORDERED: FUROSEMIDE 40 MG/4 ML VIAL IV STA (12:25)
[2022-03-15 14:56] LABS: UR PROTEIN 10.9 mg/dL (<11.9); Urine Protein/Creatinine Ratio 0.33 ratio (<0.15)
[2022-03-15] MEDS: ONDANSETRON 4 MG/2 ML VIAL IV PRN (18:00)
[2022-03-15] MEDS: NEPRO SHAKE 237 ML CAN PO SCH (21:00)
[2022-03-16] MEDS: ALBUTEROL 2.5 MG/3 ML NEB SOL NEB SCH ×4 (01:00→19:55)
[2022-03-16] MEDS: IPRATROPIUM BROM 0.5MG/2.5ML NEB SCH ×4 (01:00→19:55)
[2022-03-16] MEDS: METHYLPREDNISOLONE 40 MG INJ IV SCH ×3 (01:18→18:47)
[2022-03-16] MEDS: HEPARIN 5000 UNIT/ML 1 ML VIAL SQ SCH ×3 (01:18→18:47)
[2022-03-16] MEDS: FAMOTIDINE 20 MG/2 ML VIAL IV SCH (03:39)
[2022-03-16 06:18] VITALS: BMI 13.9
[2022-03-16 06:54] LABS: Absolute Lymphocytes (CBC) 0.3 K/uL (0.7-4.9); Lymphocytes % 1.7 % (15.3-44.8); MPV 6.8 fL (7.6-11.3); RBC Red Blood Cell Count 4.05 M/uL (3.86-4.86)
[2022-03-16 07:05] LABS: Albumin 3.2 g/dL (3.4-5.0); Bilirubin Total 0.4 mg/dL (0.2-1.0); Magnesium 2.1 mg/dL (1.8-2.4); Phosphorus 2.1 mg/dL (2.5-4.9); Potassium 3.9 mmol/L (3.5-5.1); Protein, Total 6.8 g/dL (6.4-8.2)
[2022-03-16] MEDS: NEPRO SHAKE 237 ML CAN PO SCH ×2 (09:00→20:45)
[2022-03-16 09:05] LABS: Platelet Estimate ADEQ; White Blood Cell Scan OK (OK)
[2022-03-16 09:06] LABS: Blood Morphology Comment NOT SEEN (NOT SEEN)
[2022-03-16] MEDS: ASCORBIC ACID 500 MG TABLET PO SCH (10:14)
[2022-03-16] MEDS: ZINC SULFATE 220 MG CAP PO SCH (10:14)
--- NOTE | 2022-03-16 14:31 | EKG ---
Test Date: 2022-03-14 Test Time: 19:44:41 Telegrapher Agent: BHAVIN MEASUREMENT RESULTS: Intervals: Rate: 65 UT: 172 QRSD: 72 QT: 400 QTc: 416 [place]: P: 75 UT: 172 QRS: 61 T: 69 INTERPRETIVE STATEMENTS: Sinus rhythm with premature supraventricular complexes Otherwise normal ECG Compared to ECG 12/25/2019 05:53:30 Atrial premature complex(es) now present Electronically Signed On 03-16-22 14:30:31 CDT by Arnie Veronica
--- NOTE | 2022-03-16 15:24 | P.PN ---
Subjective Date of Service: 03/16/22 Primary Care Provider: Li (out of town) Chief Complaint: COVID, JOSH, Hyponatremia, Hyperkalemia Subjective 76F w/ PMHx of CKD3a presumed to be 2/2 Htn nephrosclerosis, baseline SCr 1.0- 1.2 (equiv GFR 45-54) as of December 2021, Htn, pulmonary fibrosis, pulmonary HTN, dilated cardiomyopathy, systolic CHF (EF 43%), hypothyroidism, admitted for COVID pneumonia today Sodium improved , General: Awake, NAD , thin HEENT: Atraumatic, Normocephalic Neck: Supple, no elevated JVD Respiratory: Other CTAB. No rales or wheezes Cardiovascular: No rubs, No murmurs Gastrointestinal: Soft and benign, Non-distended Musculoskeletal: No clubbing Integumentary: No warmth Neurological: Normal tone, Sensation intact Lymphatics: No axilla or inguinal lymphadenopathy Urinary: Other (no bladder distention) # JOSH 2/2 prerenal state +/- ATN from prolonged prerenal SCr 2.1 on adm Monitor renal panel Cr improved to 1.8 off IVF will order renal US avoid NSAID and contrast # CKD3a presumed to be 2/2 Htn nephrosclerosis Baseline SCr 1.0-1.2 (equiv GFR 45-54) as of 12/26/2021 Monitor renal panel # Hyponatremia resolved Avoid hypotonic IVF # Hyperkalemia resolved # Htn BP at goal, monitor # Hx of pulmonary fibrosis, pulmonary HTN, dilated cardiomyopathy, systolic CHF (EF 43%) Per primary team # COVID infection Per primary team not requiring O2 steroids tapering Total time spent 45 minutes including documentation, reviewing labs , placing orders and discussing plan of care with medical staff and pt Physical Examination - Vital Signs Temperature: 98.3 F Blood Pressure: 121/61 Pulse: 110 Respirations: 18 Pulse Ox (%): 100
[2022-03-17] MEDS: HEPARIN 5000 UNIT/ML 1 ML VIAL SQ SCH ×2 (00:48→08:15)
[2022-03-17] MEDS: METHYLPREDNISOLONE 40 MG INJ IV SCH ×2 (00:48→08:14)
[2022-03-17] MEDS: ALBUTEROL 2.5 MG/3 ML NEB SOL NEB SCH ×2 (01:20→08:00)
[2022-03-17] MEDS: IPRATROPIUM BROM 0.5MG/2.5ML NEB SCH ×2 (01:20→08:00)
[2022-03-17] MEDS: ONDANSETRON 4 MG/2 ML VIAL IV PRN (02:10)
[2022-03-17 03:00] VITALS: O2SAT 98
[2022-03-17 04:02] LABS: Absolute Lymphocytes (CBC) 0.4 K/uL (0.7-4.9); Hematocrit 37.2 % (36.0-45.0); Lymphocytes % 2.3 % (15.3-44.8); MPV 7.4 fL (7.6-11.3); RBC Red Blood Cell Count 4.13 M/uL (3.86-4.86)
[2022-03-17 04:16] LABS: Albumin 3.2 g/dL (3.4-5.0); Bilirubin Total 0.4 mg/dL (0.2-1.0); Magnesium 2.2 mg/dL (1.8-2.4); Phosphorus 2.1 mg/dL (2.5-4.9); Potassium 3.3 mmol/L (3.5-5.1); Protein, Total 6.9 g/dL (6.4-8.2)
[2022-03-17] MEDS ORDERED: MAGNES/ALUMIN/SIMET 30ML UCUP PO ONE (07:42)
[2022-03-17] MEDS ORDERED: SODIUM CHLORIDE 0.9% 10ML INJ IV PRN (07:42)
[2022-03-17] MEDS ORDERED: PANTOPRAZOLE 40 MG INJ IVP ONE (08:00)
[2022-03-17] MEDS ORDERED: KCL 20 MEQ/100 mL IVPB 20 MEQ/100 ML BAG IV SCH (08:00)
[2022-03-17] MEDS: NEPRO SHAKE 237 ML CAN PO SCH (08:14)
[2022-03-17] MEDS: ZINC SULFATE 220 MG CAP PO SCH (08:14)
[2022-03-17] MEDS: ASCORBIC ACID 500 MG TABLET PO SCH (08:15)
[2022-03-17] MEDS ORDERED: NA CHLORIDE 0.9% 100 ML ONE (08:17)
[2022-03-17] MEDS ORDERED: FAMOTIDINE 20 MG TAB PO SCH (09:00)
--- NOTE | 2022-03-17 09:02 | RAD REPORT ---
EXAM DESCRIPTION: RAD - Chest Single View - 03/17/2022 8:53 am CLINICAL HISTORY: pain Chest pain. COMPARISON: Chest Single View dated 03/14/2022; Chest Pa And Lat (2 Views) dated 03/10/2022; Chest Pa A nd Lat (2 Views) dated 01/10/2020; Chest Pa And Lat (2 Views) dated 01/03/2020 FINDINGS: Portable technique limits examination quality. The lungs are emphysematous but grossly clear. The heart is normal in size. No displaced fractures.Pr ominent thoracolumbar scoliosis. IMPRESSION: No acute intrathoracic process suspected.
--- NOTE | 2022-03-17 09:57 | P.PN ---
Subjective Date of Service: 03/17/22 Primary Care Provider: Li (out of town) Chief Complaint: COVID, JOSH, Hyponatremia, Hyperkalemia Subjective 76F w/ PMHx of CKD3a presumed to be 2/2 Htn nephrosclerosis, baseline SCr 1.0- 1.2 (equiv GFR 45-54) as of December 2021, Htn, pulmonary fibrosis, pulmonary HTN, dilated cardiomyopathy, systolic CHF (EF 43%), hypothyroidism, admitted for COVID pneumonia today no overnight events complaining of acid reflux will add sucralafte General: Awake, NAD , thin HEENT: Atraumatic, Normocephalic Neck: Supple, no elevated JVD Respiratory: Other CTAB. No rales or wheezes Cardiovascular: No rubs, No murmurs Gastrointestinal: Soft and benign, Non-distended Musculoskeletal: No clubbing Integumentary: No warmth Neurological: Normal tone, Sensation intact Lymphatics: No axilla or inguinal lymphadenopathy Urinary: Other (no bladder distention) # JOSH 2/2 prerenal state +/- ATN from prolonged prerenal SCr 2.1 on adm Monitor renal panel Cr improved to 1.8 F/U renal US avoid NSAID and contrast # CKD3a presumed to be 2/2 Htn nephrosclerosis Baseline SCr 1.0-1.2 (equiv GFR 45-54) as of 12/26/2021 Monitor renal panel # Hyponatremia mild now Avoid hypotonic IVF encourage to increase solid food intake will add sucralafte #GERD cont famotidien will add sucralafte steroids tapering as per primary team # Hyperkalemia resolved # Htn BP at goal, monitor # Hx of pulmonary fibrosis, pulmonary HTN, dilated cardiomyopathy, systolic CHF (EF 43%) Per primary team # COVID infection Per primary team not requiring O2 steroids tapering Total time spent 45 minutes including documentation, reviewing labs , placing orders and discussing plan of care with medical staff and pt Physical Examination - Vital Signs Temperature: 97.1 F Blood Pressure: 124/84 Pulse: 86 Respirations: 18 Pulse Ox (%): 100
[2022-03-17] MEDS ORDERED: SUCRALFATE 1GM/10ML UCUP PO SCH (11:30)
[2022-03-17] MEDS ORDERED: SUCRALFATE 1 GM TABLET PO SCH (11:30)
[2022-03-17 17:36] VITALS: BP 133/73; TEMP 99
== END 2022-03-17 17:05 | disposition home or self-care (01) | DRG 177 ==
LOC: ER 18:51 → ERHOLD 22:52 → 4TH 23:07
PROVIDERS: ADMIT Hospitalist; ATTEND Hospitalist
DX: U07.1 COVID-19 (principal); E43 Unspecified severe protein-calorie malnutrition; I50.23 Acute on chronic systolic (congestive) heart failure; N17.0 Acute kidney failure with tubular necrosis; Z68.1 Body mass index [BMI] 19.9 or less, adult; E87.1 Hypo-osmolality and hyponatremia; I13.0 Hypertensive heart and chronic kidney disease with heart failure and stage 1 through stage 4 chronic kidney disease, or unspecified chronic kidney disease; I42.0 Dilated cardiomyopathy; E03.9 Hypothyroidism, unspecified; G25.81 Restless legs syndrome; I27.20 Pulmonary hypertension, unspecified; E87.5 Hyperkalemia; E86.0 Dehydration; N18.31 Chronic kidney disease, stage 3a; J84.10 Pulmonary fibrosis, unspecified; K21.9 Gastro-esophageal reflux disease without esophagitis; Z96.641 Presence of right artificial hip joint
CPT/HCPCS: 36415; 71045; 80048; 80053; 80061; 81003; 82570; 83735; 83880; 83930; 83935; 83970; 84100; 84132; 84156; 84300; 84443; 84484; 84550; 85025; 93005; 97116; 97161; 99283; C9113; J1644; J1940; J2405; J2543; J2920; J3480; J3490; J7030

== ENCOUNTER 2022-03-20 21:29 | Observation (INO) | payer OTHER ==
--- OUTSIDE RECORDS SUMMARY | 2022-03-20 21:32 | XMS REPORT | Continuity of Care Document ---
:1945 [address] [facility] t Address [address] [place] [address] Care Team Providers Name Role Phone CHAD Attending Clinician Unavailable Payers Payer Name Policy Type Policy Number Effective Date Expiration Date S clay [employer] MEDICARE ADV [id number] 2018 00:00:00 Problems This patient has no known problems. Allergies, Adverse Reactions, Alerts Allergy Allergy Status Severity Reaction(s) Onset Inactive Treating Comm ents Source Name Type Date Date Clinician NO KNOWN Drug Active [facility] ALLERGIE Class [facility] Medications This patient has no known medications. Procedures This patient has no known procedures. Encounters Start End Encounter Admission Attending Care Care Encounter Source Date/Time Date/Time Type Type Clinicians Facility Department ID 2021-01-06 2021-01-06 Outpatient R CHAD [facility] [id number] [facility] 16:20:00 16:20:00 AMAYA [facility] 2021-01-06 2021-01-06 Outpatient R [facility] [id number] [facility] 16:20:00 16:20:00 [id number] [facility] Results This patient has no known results.
[2022-03-20] MEDS ORDERED: NA CHLORIDE 0.9% 500 ML ONE (23:03)
[2022-03-20 23:32] LABS: Absolute Lymphocytes (CBC) 1.1 K/uL (0.7-4.9); Hematocrit 39.8 % (36.0-45.0); Lymphocytes % 3.9 % (15.3-44.8); MPV 7.4 fL (7.6-11.3); RBC Red Blood Cell Count 4.45 M/uL (3.86-4.86)
[2022-03-20 23:45] LABS: Potassium 3.7 mmol/L (3.5-5.1)
[2022-03-21] MEDS ORDERED: MAGNESIUM SULFATE 1 gm IVPB 1 GM/100 ML BAG IV ONE (00:06)
[2022-03-21] MEDS ORDERED: DIGOXIN 0.25 MG/ML AMP ONE (00:06)
[2022-03-21] MEDS ORDERED: METOPROLOL TARTRATE 5 MG/5 ML INJ IV ONE (00:30)
[2022-03-21 00:55] LABS: Blood Morphology Comment NOT SEEN (NOT SEEN); Platelet Estimate INCR
--- NOTE | 2022-03-21 01:57 | EDPHYS ---
Physician Documentation [facility] Name: Gabbie Rich Age: 76 yrs Sex: Female : 1945 Arrival Date: 03/20/2022 Time: 21:34 Bed 5 Private MD: ED Physician Jordy Liu HPI: 03/20 22:18 This 76 yrs old Female presents to ER via Wheelchair with complaints of Weakness, rn Decreased Appetite. 22:18 Pt and daughter report recovering from COVID, tested + 1.5 weeks ago, just left hospital this past weekend, breathing better and not on oxygen. Daughter brought her back for generalized weakness that is not getting better, but not getting worse. Pt reports just doesn't have appetite. . Onset: The symptoms/episode began/occurred 1.5 week(s) ago. Severity of symptoms: At their worst the symptoms were moderate in the emergency department the symptoms are unchanged. The patient has not experienced similar symptoms in the past. The patient has been recently seen at the [facility] Emergency Department, The patient has been recently been admitted at [facility]. Historical: - Allergies: 22:09 No Known Allergies; vc1 - PMHx: 22:09 CHF; Hypertension; Hypothyroidism; pulmonary fibrosis; restless leg syndrome; vc1 - PSHx: 22:09 Right hip replacement; Hysterectomy; vc1 - Immunization history:: Adult Immunizations up to date, Client reports receiving the 2nd dose of the Covid vaccine, Pneumococcal vaccine is up to date, Flu vaccine is up to date. - Social history:: Smoking status: Patient denies any tobacco usage or history of. - Family history:: not pertinent. - Hospitalizations: : No recent hospitalization is reported. ROS: 22:18 Constitutional: Negative for fever, chills, and weight loss, Eyes: Negative for injury, rn pain, redness, and discharge, Cardiovascular: Negative for chest pain, palpitations, and edema, Respiratory: Negative for shortness of breath, cough, wheezing, and pleuritic chest pain, Abdomen/GI: Negative for abdominal pain, nausea, vomiting, diarrhea, and constipation, MS/Extremity: Negative for injury and deformity, Skin: Negative for injury, rash, and discoloration, Neuro: Negative for headache, numbness, tingling, and seizure. Exam: 22:18 Constitutional: This is a well developed, well nourished patient who is awake, alert, rn and in no acute distress. Head/Face: Normocephalic, atraumatic. Eyes: Periorbital areas with no swelling, redness, or edema. Cardiovascular: Regular rate and rhythm. No pulse deficits. Respiratory: No increased work of breathing, no retractions or nasal flaring. Abdomen/GI: soft, non-tender Skin: Warm, dry MS/ Extremity: Pulses equal, no cyanosis Neuro: Awake and alert, GCS 15 Vital Signs: 21:57 Pulse 82; Resp 20; Temp 99.2; Pulse Ox 96% on R/A; Weight 35.83 kg; Height 5 ft. 0 in. vc1 (152.40 cm); Pain 0/10; 22:09 BP 110 / 59; vc1 23:04 BP 120 / 72; Pulse 50; Pulse Ox 97% on R/A; tw5 03/21 00:07 BP 118 / 101; Pulse 154; Resp 18; Pulse Ox 100% on R/A; tw5 00:25 BP 131 / 92; Pulse 143; Resp 18; Pulse Ox 99% on R/A; tw5 01:09 BP 118 / 71; Pulse 88; Resp 18; Pulse Ox 99% on R/A; tw5 02:03 BP 128 / 72; Pulse 87; Resp 16 S; Pulse Ox 98% on R/A; as6 03/20 21:57 Body Mass Index 15.43 (35.83 kg, 152.40 cm) vc1 MDM: 03/20 21:59 Patient medically screened. rn 23:57 ED course: Pt had episode of tachycardia, getting ECG, most likely afib, was in brief rn episode of afib while in hospital, given digoxin, not anticoagulated. . 03/21 01:55 Differential Diagnosis dehydration, electrolyte disorder, atrial flutter, afib. Data rn reviewed: vital signs, nurses notes, lab test result(s), EKG, and as a result, I will admit patient. Counseling: I had a detailed discussion with the patient and/or guardian regarding: the historical points, exam findings, and any diagnostic results supporting the discharge/admit diagnosis, lab results, the need for further work-up and treatment in the hospital. Response to treatment: the patient's symptoms have mildly improved after treatment, and as a result, I will admit patient. Admission orders: after a detailed discussion of the patient's condition and case, the admit orders are written by me. ED course: Now in persistent flutter, rate controlled, will admit to see if any new medication/anticoagulation recommended and family not comfortable taking her home. they were not aware of episode of afib while in hospital last time.. 03/20 22:05 Order name: CBC with Diff; Complete Time: 01:55 rn 03/20 22:05 Order name: BMP; Complete Time: 23:53 rn 03/20 23:40 Order name: Manual Differential; Complete Time: 01:55 EDMS 03/21 00:32 Order name: SARS-COV-2 RT PCR (Document "Date of Onset" if Symptomatic) rn 03/21 01:56 Order name: BNP la1 03/21 01:56 Order name: TSH la1 03/21 01:56 Order name: Troponin High Sensitivity la1 03/21 02:14 Order name: Urinalysis EDOH 03/21 02:14 Order name: CBC with Automated Diff EDOH 03/21 02:14 Order name: CBC with Automated Diff EDMS 03/21 02:14 Order name: CBC with Automated Diff EDMS 03/21 02:14 Order name: CBC with Automated Diff EDMS 03/21 02:14 Order name: Comprehensive Metabolic Panel EDOH 03/21 02:14 Order name: Comprehensive Metabolic Panel EDOH 03/20 22:05 Order name: IV Start; Complete Time: 23:13 rn 03/21 00:08 Order name: EKG; Complete Time: 00:08 tw5 03/21 00:08 Order name: EKG - Nurse/Tech; Complete Time: 00:08 tw5 03/21 01:56 Order name: Chest Single View XRAY la1 03/21 02:14 Order name: Physical Therapy Consult EDOH 03/21 02:14 Order name: Heart Healthy EDOH 03/21 02:14 Order name: Comprehensive Metabolic Panel EDOH 03/21 04:16 Order name: T4 Free EDOH 03/21 13:45 Order name: RAD EDOH 03/21 15:10 Order name: Urinalysis EDMS Administered Medications: 03/20 23:13 Drug: NS 0.9% 500 ml Route: IV; Rate: bolus; Site: left antecubital; tw5 06 05:32 Follow up: Response: No adverse reaction; IV Status: Completed infusion; IV Intake: as6 500ml 00:02 Drug: Digoxin 0.25 mg Route: IVP; Site: left antecubital; as6 00:31 Follow up: Response: No adverse reaction tw5 00:03 Drug: Magnesium Sulfate 1 grams Route: IVPB; Infused Over: 1 hrs; Site: left as6 antecubital; 01:10 Follow up: Response: No adverse reaction; IV Status: Completed infusion; IV Intake: tw5 100ml 00:31 Drug: Lopressor (metoprolol) 5 mg Route: IVP; Site: left antecubital; tw5 01:09 Follow up: Response: No adverse reaction; Cardiac rhythm changed tw5 Disposition Summary: 03/21/22 01:57 Hospitalization Ordered Hospitalization Status: Observation rn Provider: Betito Ordonez rn Condition: Stable rn Problem: new rn Symptoms: have improved rn Bed/Room Type: Standard rn Location: Telemetry/MedSurg (observation)(03/21/22 14:17) eb Room Assignment: [facility](03/21/22 14:17) eb Diagnosis - Unspecified atrial flutter rn - Muscle weakness (generalized) rn - Dehydration rn Forms: - Medication Reconciliation Form rn - SBAR form rn Signatures: Dispatcher [employer] EDJordy Garland MD MD rn Attema, Lee, JONO [id number] Laquita Kendall RN RN Elham Montero Reva Rangel tw5 Fantasma Price RN RN as6 Breana Horta, RN RN vc1 Corrections: (The following items were deleted from the chart) 02:34 01:57 Telemetry/MedSurg (observation) rn cg 02:34 01:57 rn cg 02:51 02:34 [facility] ER HOLD cg cg 02:51 02:34 ERHOLD- cg cg 03:06 02:51 Telemetry/MedSurg (observation) cg cg 03:06 02:51 cg cg 14:17 03:06 [facility] ER HOLD cg eb 14:17 03:06 ERHOLD- cg eb
--- NOTE | 2022-03-21 01:57 | ER ---
Nurse's Notes [facility] Name: Gabbie Rich Age: 76 yrs Sex: Female : 1945 Arrival Date: 03/20/2022 Time: 21:34 Bed 5 Private MD: Diagnosis: Unspecified atrial flutter;Muscle weakness (generalized);Dehydration Presentation: 03/20 21:57 Chief complaint: Patient's son or daughter states: "We just left Friday she was vc1 admitted here with covid, she's starting to get weak again and not eating. When she did that last time she was dehydrated.". Coronavirus screen: Vaccine status: Patient reports having had a previously documented Covid positive illness. Currently positive. Ebola Screen: No symptoms or risks identified at this time. 21:57 Method Of Arrival: Wheelchair vc1 22:08 Initial Sepsis Screen: Does the patient have a suspected source of infection? Yes: vc1 Other: Covid positive. Risk Assessment: Do you want to hurt yourself or someone else? Patient reports no desire to harm self or others. Onset of symptoms is unknown. 22:08 Acuity: SENAIT 3 vc1 22:09 Coronavirus screen: Vaccine status: Patient reports receiving the 2nd dose of the covid vc1 vaccine. Moderna. Initial Sepsis Screen: Does the patient meet any 2 criteria? No. Patient's initial sepsis screen is negative. Triage Assessment: 22:09 General: Appears in no apparent distress. Behavior is calm, cooperative, appropriate vc1 for age. Pain: Denies pain. EENT: No signs and/or symptoms were reported regarding the EENT system. Neuro: Level of Consciousness is awake, alert, obeys commands, Oriented to person, place, time, situation, Appropriate for age Reports weakness. Cardiovascular: No deficits noted. Respiratory: Airway is patent Respiratory effort is even, unlabored, Respiratory pattern is regular, symmetrical. GI: Reports diarrhea. : No deficits noted. Derm: Skin is fragile. Musculoskeletal: No deficits noted. Historical: - Allergies: 22:09 No Known Allergies; vc1 - PMHx: 22:09 CHF; Hypertension; Hypothyroidism; pulmonary fibrosis; restless leg syndrome; vc1 - PSHx: 22:09 Right hip replacement; Hysterectomy; vc1 - Immunization history:: Adult Immunizations up to date, Client reports receiving the 2nd dose of the Covid vaccine, Pneumococcal vaccine is up to date, Flu vaccine is up to date. - Social history:: Smoking status: Patient denies any tobacco usage or history of. - Family history:: not pertinent. - Hospitalizations: : No recent hospitalization is reported. Screenin:11 Abuse screen: Denies threats or abuse. Nutritional screening: No deficits noted. vc1 Tuberculosis screening: No symptoms or risk factors identified. Fall Risk None identified. Assessment: 23:04 General: 'i was just here , I dont seem to be getting better." Daughter at the tw5 bedside reports " She just wont drink much, I think she is really dehydrated". Pain: Denies pain. Neuro: Level of Consciousness is awake, alert, obeys commands. Respiratory: Airway is patent Trachea midline Respiratory effort is even, unlabored. Derm: Skin with poor turgor Skin is pink, warm \\T\\ dry. 23:13 General: patient pefers the name "Maryan". tw5 23:49 General: Reports "I am feeling relaxed.". tw5 23:55 Cardiovascular: Capillary refill < 3 seconds is brisk in bilateral fingers Pulses are tw5 palpable in right radial artery and left radial artery. Cardiovascular: Rhythm is atrial flutter on bedside monitor. Provider notified. EKG obtained. 03/21 00:04 Cardiovascular: Capillary refill < 3 seconds is brisk in bilateral Rhythm is atrial as6 flutter provider notifed. 00:06 General: Daughter at the bedside stated " She has a history of CHF, but she has never tw5 had Afib or A flutter. 00:31 Reassessment: No changes from previously documented assessment. tw5 02:03 General: Appears in no apparent distress. comfortable. Cardiovascular: Rhythm is atrial as6 flutter 3:1. Respiratory: Respiratory effort is even, unlabored, Respiratory pattern is regular, symmetrical. Vital Signs: 03/20 21:57 Pulse 82; Resp 20; Temp 99.2; Pulse Ox 96% on R/A; Weight 35.83 kg; Height 5 ft. 0 in. vc1 (152.40 cm); Pain 0/10; 22:09 BP 110 / 59; vc1 23:04 BP 120 / 72; Pulse 50; Pulse Ox 97% on R/A; tw5 06/09 00:07 BP 118 / 101; Pulse 154; Resp 18; Pulse Ox 100% on R/A; tw5 00:25 BP 131 / 92; Pulse 143; Resp 18; Pulse Ox 99% on R/A; tw5 01:09 BP 118 / 71; Pulse 88; Resp 18; Pulse Ox 99% on R/A; tw5 02:03 BP 128 / 72; Pulse 87; Resp 16 S; Pulse Ox 98% on R/A; as6 03/20 21:57 Body Mass Index 15.43 (35.83 kg, 152.40 cm) vc1 ED Course: 03/20 21:34 Patient arrived in ED. ja2 21:59 Jordy Liu MD is Attending Physician. rn 22:09 Triage completed. vc1 22:11 Arm band placed on right wrist. vc1 22:54 Reva Rangel is Primary Nurse. tw5 23:04 Patient has correct armband on for positive identification. Pulse ox on. NIBP on. Door tw5 closed. Warm blanket given. Verbal reassurance given. 23:04 No provider procedures requiring assistance completed. tw5 23:13 BMP Sent. tw5 23:13 CBC with Diff Sent. 03/21 00:04 EKG done, by ED staff, reviewed by Jordy Liu MD. as6 01:56 Betito Ordonez MD is Hospitalizing Provider. rn 02:50 SARS-COV-2 RT PCR (Document "Date of Onset" if Symptomatic) Sent. tw5 05:33 Patient admitted, IV remains in place. as6 Administered Medications: 03/20 23:13 Drug: NS 0.9% 500 ml Route: IV; Rate: bolus; Site: left antecubital; 03/21 05:32 Follow up: Response: No adverse reaction; IV Status: Completed infusion; IV Intake: as6 500ml 00:02 Drug: Digoxin 0.25 mg Route: IVP; Site: left antecubital; as 00:31 Follow up: Response: No adverse reaction tw 00:03 Drug: Magnesium Sulfate 1 grams Route: IVPB; Infused Over: 1 hrs; Site: left as6 antecubital; 01:10 Follow up: Response: No adverse reaction; IV Status: Completed infusion; IV Intake: tw5 100ml 00:31 Drug: Lopressor (metoprolol) 5 mg Route: IVP; Site: left antecubital; 01:09 Follow up: Response: No adverse reaction; Cardiac rhythm changed Medication: 03/20 23:04 VIS not applicable for this client. tw Intake: 03/21 01:10 IV: 100ml; Total: 100ml. tw 05:32 IV: 500ml; Total: 600ml. as6 Outcome: 01:57 Decision to Hospitalize by Provider. rn 05:32 Admitted to ER Hold. Please see [facility] for further documentation. as6 05:32 Condition: stable 05:32 Instructed on the need for admit. 15:10 Admitted to Med/surg accompanied by nurse, via wheelchair, room 417, Report called to sana Rawls RN 15:14 Patient left the ED. [email or web address] Signatures: Jordy Liu MD MD rn Alexander, Jessica ja2 Wood, Tiffany tw5 Fantasma Price RN RN as6 Delmy Jackman RN RN jg9 Breana Horta RN RN vc1 Corrections: (The following items were deleted from the chart) 00:06 00:04 Cardiovascular: tw
[2022-03-21] MEDS ORDERED: ONDANSETRON 4 MG/2 ML VIAL IV PRN (02:10)
--- NOTE | 2022-03-21 02:20 | P.HP ---
Certification for Inpatient Patient admitted to: Observation With expected LOS: <2 Midnights Patient will require the following post-hospital care: None Practitioner: I am a practitioner with admitting privileges, knowledge of patient current condition, hospital course, and medical plan of care. Services: Services provided to patient in accordance with Admission requirements found in Title 42 Section 412.3 of the Code of Federal Regulations Patient History Date of Service: 03/21/22 Reason for admission: Atrial flutter History of Present Illness: 76-year-old female history of recent COVID infection with hospitalization for dehydration/JOSH, chronic systolic congestive heart failure, hypothyroidism, CKD 3, pulmonary fibrosis presents emergency department for generalized weakness, she feels like he has been having difficulty getting around since he was discharged in the hospital felt like she was dehydrated came to the emergency department for IV fluids and evaluation. Patient was evaluated in the emergency department her labs were significant for leukocytosis, similar renal function to previous hospitalization. During her stay in the emergency department she developed atrial flutter with a rate of up to 160, she her rate did respond to digoxin and metoprolol IV although she maintains in atrial flutter at this time. She did have 1 previous episode of atrial flutter during hospitalization but it was brief this has become more sustained, for this reason ED provider wishes to admit observation for cardiology evaluation. Allergies No Known Allergies Allergy (Verified 12/25/19 04:11) Home Medications: Levothyroxine Sodium 50 mcg PO DIRECTED 02/24/19 Levothyroxine Sodium 75 mcg PO DIRECTED 02/24/19 Ropinirole HCl 2 mg PO TID PRN 02/24/19 lisinopriL [Lisinopril] 5 mg PO DAILY #30 tablet 02/27/19 Montelukast [Singulair*] 10 mg PO DAILY 03/14/22 Nirmatrelvir/Ritonavir [Paxlovid 150-100 mg Pack (Eua)] 3 tab PO BID 03/14/22 Spironolactone [Aldactone*] 25 mg PO BID 03/14/22 Albuterol Neb [Proventil 0.083% Neb Soln] 2.5 mg NEB [id number] #60 amp 03/17/22 Furosemide [Lasix] 2 tab PO DAILY #60 03/17/22 Hydrocodone/Chlorphen Polis [Tussionex Oral Susp*] 5 ml PO BID PRN #100 ml 03/17/22 Ipratropium Neb [Atrovent*] 0.5 mg NEB [id number] #60 amp 03/17/22 Nepro Shake [Nepro*] 237 ml PO BID #60 can 03/17/22 Pantoprazole [Protonix Tab] 40 mg PO BID #60 tab 03/17/22 Sucralfate [Carafate*] 10 ml PO ACHS #500 ml 03/17/22 predniSONE [Deltasone] 20 mg PO BID #26 tab 03/17/22 - Past Medical/Surgical History Diabetic: No -: Hypertension -: Hypothyroid -: CHF reduced ejection fraction -: Asthma -: Severe restless legs -: Pulmonary fibrosis -: Atrial flutter -: Hysterectomy -: Right hip replacement Psychosocial/ Personal History: Patient lives at home. Her daughter helps take care of her. - Family History Mother -: Heart disease, Stroke, Other (see notes) Notes: CHF; HTN - Social History Smoking Status: Never smoker Alcohol use: Yes CD- Drugs: No Caffeine use: Yes Place of Residence: Home Review of Systems 10-point ROS is otherwise unremarkable General: Weakness, Malaise Physical Examination - Physical Exam General: Alert, In no apparent distress, Oriented x3 HEENT: Atraumatic, PERRLA, Mucous membr. moist/pink, EOMI, Sclerae nonicteric Neck: Supple, 2+ carotid pulse no bruit, No LAD, Without JVD or thyroid abnormality Respiratory: Clear to auscultation bilaterally, Normal air movement Cardiovascular: Normal S1 S2, Irregular heart rate/rhythm (Atrial flutter) Gastrointestinal: Normal bowel sounds, No tenderness Musculoskeletal: No tenderness Integumentary: No rashes Neurological: Normal speech, Normal strength at 5/5 x4 extr, Normal tone, Normal affect - Studies Laboratory Data (last 24 hrs) 03/20/22 23:11: Sodium 131 L, Potassium 3.7, BUN 89 H D, Creatinine 1.83 H, Glucose 112 H 03/20/22 23:11: WBC 28.1 H* D, Hgb 13.4, Hct 39.8, Plt Count 413 H Assessment and Plan - Plan Assessment: Paroxysmal atrial flutternow sustained Chronic systolic congestive heart failure CKD 3 Hypertension Hypothyroidism Leukocytosis Pulmonary fibrosis Plan: Paroxysmal atrial flutternow sustained: Rate controlled with digoxin/metoprolol but persists with atrial flutter, during her previous hospitalization she did have a brief episode cardiology recommended no anticoagulation at the time but now sustained an atrial flutter. Will obtain echocardiogram continue metoprolol. Appreciate further input from cardiology. Chronic systolic congestive heart failure: Continue home medications, stable. CKD 3: Stable, continue gentle IV fluid. Hypertension: Continue home medications, add metoprolol 25 p.o. twice daily for rate control/A-flutter Hypothyroidism: Continue home medications Leukocytosis: Patient afebrile no chills believe this is likely related to the prednisone she is taking. Pulmonary fibrosis: Continue home medication, supplemental oxygen as needed. DVT PPX: Heparin Code status: Full Discharge Plan: Home Plan to discharge in: 24 Hours - Advance Directives Does patient have a Living Will: Yes Does patient have a Durable POA for Healthcare: Yes - Code Status/Comfort Care Code Status Assessed: Yes (Full code) Critical Care: No Time Spent Managing Pts Care (In Minutes): 55
[2022-03-21] MEDS: NA CHLORIDE 0.9% 1,000 ML IV SCH ×2 (03:00→15:42)
[2022-03-21 03:23] VITALS: BMI 15.4
[2022-03-21] MEDS ORDERED: NA CHLORIDE 0.9% 1,000 ML ONE (03:56)
[2022-03-21 04:02] LABS: Thyroid Stimulating Hormone 5.36 uIU/mL (0.360-3.740)
[2022-03-21 04:03] LABS: Troponin High Sensitivity 74.8 pg/mL (<58.9)
[2022-03-21 04:24] LABS: Absolute Lymphocytes (CBC) 1.2 K/uL (0.7-4.9); Hematocrit 36.7 % (36.0-45.0); Lymphocytes % 6.2 % (15.3-44.8); MPV 7.3 fL (7.6-11.3); RBC Red Blood Cell Count 4.08 M/uL (3.86-4.86)
[2022-03-21 04:46] LABS: Albumin 2.4 g/dL (3.4-5.0); Bilirubin Total 0.7 mg/dL (0.2-1.0); Potassium 3.7 mmol/L (3.5-5.1); Protein, Total 5.8 g/dL (6.4-8.2)
[2022-03-21] MEDS: METOPROLOL TAR 25 MG TAB PO SCH ×2 (06:00→17:45)
[2022-03-21] MEDS ORDERED: METOPROLOL TAR 25 MG TAB ONE (06:44)
[2022-03-21] MEDS: HEPARIN 5000 UNIT/ML 1 ML VIAL SQ SCH ×2 (09:00→21:30)
[2022-03-21] MEDS ORDERED: HEPARIN 5000 UNIT/ML 1 ML VIAL ONE (10:04)
--- NOTE | 2022-03-21 12:58 | CON ---
Date of Consultation: 03/21/2022 Reason For Consultation: Atrial flutter. History Of Present Illness: Ms. Rich is a 76-year-old woman, I know her from the past. She has a history of severe pulmonary fibrosis, asthma, hypothyroidism, chronic systolic congestive heart fa ilure with an ejection fraction of 43%, hypertension, chronic renal disease, who came in with recent weakness, decreased appetite, and was found to have an atrial flutter with rapid response initially. She responded well to digoxin and metoprolol. Her heart rate now is in the 80s. She is asymptomati c. She is receiving Lovenox as well. She denied any syncope or fever or chills or cough. Denied an y PND, orthopnea, or pedal edema or any chest pain or nausea or vomiting or diaphoresis. Her main co mplaint was weakness. She did not feel palpitations either. Allergies: NONE. Past Medical History: As stated earlier. Review of Systems: Negative. Social History: Negative. Family History: Negative. Medications: Include Lasix, Synthroid, Singulair, Protonix, prednisone, ropinirole, lisinopril, and Carafate. Physical Examination: VITAL SIGNS: She was in AFib at rate of 80. HEENT: Negative. Neck: Supple with no bruit. Chest: Clear. Cardiac: Revealed atrial fibrillation. No murmurs, gallops, or rubs. Abdomen: Benign. Extremities: Revealed no clubbing, cyanosis, or edema. Skin: Dry and intact. Neurologic: She was nonfocal. Pulses were present distally bilaterally. Diagnostic Data: EKG showed atrial fibrillation. Creatinine is 1.64 white count of 18,000. She is COVID positive. Troponin is 7 before. Her BNP was 14,738. Impression And Plan: 1.Weakness, possibly secondary to recent COVID and may be exacerbated by atrial fibrillation. As fa r as her atrial fibrillation is concerned, we would aim for anticoagulation with Eliquis or Zocor as well as low-dose beta-betzaida to control her rate. Echocardiogram is pending. I would not plan to c ardiovert her at this point. She can go home after her rate is controlled. We will see her in the o ffice soon. Meanwhile, I will continue to follow her while she is here. Again, we will see what her echocardiogram shows. 2.Her other problems include renal insufficiency, stage III. 3.White count secondary to COVID. 4.Elevated BNP secondary to chronic systolic congestive heart failure. 5.Elevated troponin secondary to demand ischemia. 6.Severe pulmonary fibrosis. 7.Asthma. 8.Hypothyroidism. 9.Hypertension, well controlled. Again, I would resume a regimen as is at home, add low-dose metopr olol, anticoagulate with either Eliquis or Xarelto depending what Dr. Ordonez wants, see what her ec ho shows, and we will go from there. PAMELA/DANY Voice ID: [id number] Report ID: [id number]
--- NOTE | 2022-03-21 13:43 | RAD REPORT ---
EXAM DESCRIPTION: RAD - Chest Single View - 03/21/2022 2:17 am CLINICAL HISTORY: 76 years, Female, SOB, new afib COMPARISON: None FINDINGS: Single view of the chest was obtained portable. No prior films are available for compariso n. There is mild hyperinflation. The cardiomediastinal silhouette demonstrate to be unremarkable. For heart is not enlarged. The thoracic aorta is unremarkable. Costophrenic angles are sharp. No areas of consolidation or masses are seen. There is scoliosis of the thoracic spine. The rest of the sof t tissue and bony structures demonstrate to be unremarkable. IMPRESSION: Mild hyperinflation. No acute cardiopulmonary disease identified. Electronically signed by: Javon Gutierrez MD 03/21/2022 2:59 AM CDT Due to temporary technical issues with the PACS/Fluency reporting system, reports are being signed by the in house radiologists without review as a courtesy to insure prompt reporting. The interpreting radiologist is fully responsible for the content of the report.
--- NOTE | 2022-03-21 14:18 | EKG ---
Test Date: 2022-03-20 Test Time: 23:54:42 Licensed Sales Assistant: MEASUREMENT RESULTS: Intervals: Rate: 152 KS: QRSD: 70 QT: 300 QTc: 477 Maud: P: KS: QRS: 64 T: -82 INTERPRETIVE STATEMENTS: Atrial fibrillation with rapid ventricular rate Nonspecific ST and T wave abnormality Abnormal ECG Compared to ECG 03/14/2022 19:44:41 ST (T wave) deviation now present Sinus rhythm no longer present Atrial premature complex(es) no longer present Electronically Signed On 03-21-22 14:18:28 CDT by Arnie Veronica
[2022-03-21 15:10] LABS: Urine Appearance Clear (Clear); Urine Bilirubin Negative (Negative); Urine Blood Negative (Negative); Urine Color Yellow (Yellow); Urine Glucose Negative (Negative); Urine Protein Negative (Negative); Urine Urobilinogen 0.2 mg/dL (0.2-1.0); Urine pH 5.5 (5.0-7.0)
[2022-03-21 15:18] LABS: Urine Microscopic Reflex NO UMIC
[2022-03-21] MEDS ORDERED: SODIUM CHLORIDE 0.9% 10ML INJ IV PRN ×2 (22:17)
[2022-03-21] MEDS ORDERED: PANTOPRAZOLE 40 MG INJ IVP ONE (22:17)
[2022-03-22] MEDS: NA CHLORIDE 0.9% 1,000 ML IV SCH (04:40)
[2022-03-22 05:22] LABS: Absolute Lymphocytes (CBC) 1.1 K/uL (0.7-4.9); Hematocrit 33.1 % (36.0-45.0); Lymphocytes % 9.4 % (15.3-44.8); MPV 7.4 fL (7.6-11.3); RBC Red Blood Cell Count 3.64 M/uL (3.86-4.86)
[2022-03-22 05:45] LABS: Albumin 2.2 g/dL (3.4-5.0); Bilirubin Total 0.6 mg/dL (0.2-1.0); Protein, Total 5.2 g/dL (6.4-8.2)
[2022-03-22] MEDS: METOPROLOL TAR 25 MG TAB PO SCH (06:00)
--- NOTE | 2022-03-22 06:58 | ECHO ---
HEIGHT: 5 ft 0 in WEIGHT: 78 lb 15.866 oz DATE OF STUDY: 03/21/[address]: Luis Antonio Burton NP 2-DIMENSIONAL: YES M.MODE: YES DOPPLER: YES COLOR FLOW: YES TDS: PORTABLE: YES DEFINITY: BUBBLE STUDY: DIAGNOSIS: NEW ATIRAL FLUTTER CARDIAC HISTORY: CATHERIZATION: NO SURGERY: NO PROSTHETIC VALVE: NO PACEMAKER: NO MEASUREMENTS (cm) DIASTOLIC (NORMALS) SYSTOLIC (NORMALS) IVSd 0.7 (0.6-1.2) LA Diam 2.2 (1.9-4.0) LVEF 55-60% LVIDd 2.5 (3.5-5.7) LVIDs 1.3 (2.0-3.5) %FS 51% LVPWd 0.8 (0.6-1.2) Ao Diam 1.5 (2.0-3.7) 2 DIMENSIONAL ASSESSMENT: RIGHT ATRIUM: NORMAL LEFT ATRIUM: NORMAL RIGHT VENTRICLE: NORMAL LEFT VENTRICLE: NORMAL TRICUSPID VALVE: MILD TRICUSPID REGURGITATION MITRAL VALVE: THICKENED, MILD MITRAL REGURGITATION PULMONIC VALVE: NORMAL AORTIC VALVE: NORMAL PERICARDIAL EFFUSION: NONE AORTIC ROOT: NORMAL LEFT VENTRICULAR WALL MOTION: NORMAL DOPPLER/COLOR FLOW: SEE BELOW COMMENTS: NORMAL LEFT VENTRICULAR EJECTION FRACTION 55-60%. ATRIAL FIBRILLATION. MILD TRICUSPID REGURGITATION. MILD MITRAL REGURGITATION. MOBILE STRUCTURE IN THE RIGHT ATRIUM LIKELY REPRESENTS [employer]. TECHNOLOGIST: CONCHA FORTUNE
[2022-03-22] MEDS: HEPARIN 5000 UNIT/ML 1 ML VIAL SQ SCH (07:35)
[2022-03-22 07:50] VITALS: O2SAT 98
[2022-03-22] MEDS ORDERED: PANTOPRAZOLE 40 MG INJ IVP SCH (09:00)
[2022-03-22 12:47] VITALS: BP 129/74; TEMP 98.7
--- NOTE | 2022-03-22 13:18 | P.DS ---
Admission Date: 03/21/22 Discharge Date: 03/22/22 Disposition: ROUTINE DISCHARGE Discharge Condition: GOOD Reason for Admission: Atrial flutter Consultations: Cardiology Brief History of Present Illness: 76-year-old female history of recent COVID infection with hospitalization for dehydration/JOSH, chronic systolic congestive heart failure, hypothyroidism, CKD 3, pulmonary fibrosis presents emergency department for generalized weakness, she feels like he has been having difficulty getting around since he was discharged in the hospital felt like she was dehydrated came to the emergency department for IV fluids and evaluation. Patient was evaluated in the emergency department her labs were significant for leukocytosis, similar renal function to previous hospitalization. During her stay in the emergency department she developed atrial flutter with a rate of up to 160, she her rate did respond to digoxin and metoprolol IV although she maintains in atrial flutter at this time. She did have 1 previous episode of atrial flutter during hospitalization but it was brief this has become more sustained, for this reason ED provider wishes to admit observation for cardiology evaluation. Hospital Course: Pain to the acute medicine service for evaluation for recent onset atrial flutter and she also had elevated creatinine raising concern for volume depletion so she was started on IV hydration. She responded well to therapy with resolution of JOSH and creatinine down trended from 1.8-1.0 on the day of discharge. Sodium was also found to be moderately low at 131 and is improved to 136 today. She was deemed stable for discharge to continue medication for control of rate with metoprolol and also anticoagulation with Eliquis. She will follow-up with cardiology and primary care doctor posthospital discharge. Vital Signs/Physical Exam: Temp Pulse Resp BP Pulse Ox 98.7 F 67 16 129/74 98 03/22/22 12:00 03/22/22 12:00 03/22/22 12:00 03/22/22 12:03/22/22 12:00 General: Alert HEENT: Atraumatic, Normocephalic Neck: Supple Respiratory: Normal air movement Cardiovascular: Regular rate/rhythm, Normal S1 S2 Gastrointestinal: Soft and benign Musculoskeletal: No swelling Neurological: Normal speech, Normal strength at 5/5 x4 extr Laboratory Data at Discharge: WBC 11.5 K/uL (4.3-10.9) H D 03/22/22 04:41 Hgb 11.1 g/dL (12.0-15.0) L 06/10/22 04:41 Hct 33.1 % (36.0-45.0) L 03/22/22 04:41 Plt Count 296 K/uL (152-406) 03/22/22 04:41 Sodium 138 mmol/L (136-145) 03/22/22 04:41 Potassium 4.0 mmol/L (3.5-5.1) 03/22/22 04:41 BUN 58 mg/dL (7-18) H D 03/22/22 04:41 Creatinine 1.21 mg/dL (0.55-1.3) 03/22/22 04:41 Glucose 67 mg/dL (74-106) L 03/22/22 04:41 Total Bilirubin 0.6 mg/dL (0.2-1.0) 03/22/22 04:41 AST 20 U/L (15-37) 03/22/22 04:41 ALT 38 U/L (12-78) 03/22/22 04:41 Alkaline Phosphatase 81 U/L (45-117) 03/22/22 04:41 Home Medications: Levothyroxine Sodium 50 mcg PO DIRECTED 02/24/19 Levothyroxine Sodium 75 mcg PO DIRECTED 02/24/19 Ropinirole HCl 2 mg PO TID PRN 02/24/19 lisinopriL [Lisinopril] 5 mg PO DAILY #30 tablet 02/27/19 Montelukast [Singulair*] 10 mg PO DAILY 03/14/22 Furosemide [Lasix] 2 tab PO DAILY #60 03/17/22 Pantoprazole [Protonix Tab] 40 mg PO BID #60 tab 03/17/22 Sucralfate [Carafate*] 10 ml PO ACHS #500 ml 03/17/22 predniSONE [Deltasone] 20 mg PO BID #26 tab 03/17/22 Diet: AHA Followup: Harjit Jefferson MD [Primary Care Provider] -
--- NOTE | 2022-03-23 12:02 | PN ---
Date of Progress Note: 03/22/2022 Ms. Layla Parisi, was admitted with new onset atrial fibrillation. She converted to sinus rhythm wit h metoprolol and heparin. She had an echocardiogram basically that was normal and ejection fraction 60%. Again, she is in sinus rhythm now. I will send her home on beta-blockers in addition to her ho ok medication and also should go home on Eliquis 2.5 b.i.d. I will see her in the office in the next 2 weeks. Her other problems including hypertension, chronic diastolic congestive heart failure, pul monary fibrosis, and recent COVID are stable at this point. PAMELA/DANY Voice ID: [id number] Report ID: [id number]
== END 2022-03-22 14:15 | disposition home or self-care (01) ==
LOC: ER 21:29 → ERHOLD 03-21 02:08 → 4TH 03-21 14:50
PROVIDERS: ADMIT Internal Medicine Nephrology; ATTEND Internal Medicine Nephrology
DX: I48.91 Unspecified atrial fibrillation (principal); I48.92 Unspecified atrial flutter; I13.0 Hypertensive heart and chronic kidney disease with heart failure and stage 1 through stage 4 chronic kidney disease, or unspecified chronic kidney disease; N18.30 Chronic kidney disease, stage 3 unspecified; I50.22 Chronic systolic (congestive) heart failure; N17.9 Acute kidney failure, unspecified; U07.1 COVID-19; I24.8 Other forms of acute ischemic heart disease; E03.9 Hypothyroidism, unspecified; J84.10 Pulmonary fibrosis, unspecified; J45.909 Unspecified asthma, uncomplicated; G25.81 Restless legs syndrome; Z79.899 Other long term (current) drug therapy; Z96.641 Presence of right artificial hip joint; Z90.710 Acquired absence of both cervix and uterus; Z82.49 Family history of ischemic heart disease and other diseases of the circulatory system; Z82.3 Family history of stroke
CPT/HCPCS: 96365; 96361; 93005; 93306; 85025 ×3; 80048; 36415 ×2; 84443; 81003; 84484; 84439; 80053 ×2; 83880; 71045; 97116; 97161; 96375; 99285; U0003; J1644 ×3; C9113 ×2; J7040; J7030 ×3; G0378 ×3

== ENCOUNTER 2022-04-03 06:24 | Inpatient (IN) | payer OTHER ==
--- OUTSIDE RECORDS SUMMARY | 2022-04-03 06:26 | XMS REPORT | Continuity of Care Document ---
:1945 Author Organization [facility] t Address [address] [place] [address] Care Team Providers Name Role Phone CHAD Attending Clinician Unavailable Payers Payer Name Policy Type Policy Number Effective Date Expiration Date S clay [employer] MEDICARE ADV [id number] 2018 00:00:00 Problems This patient has no known problems. Allergies, Adverse Reactions, Alerts Allergy Allergy Status Severity Reaction(s) Onset Inactive Treating Comm ents Source Name Type Date Date Clinician NO KNOWN Drug Active [facility] ALLERGIE Class [facility] Medications This patient has no known medications. Procedures This patient has no known procedures. Encounters Start End Encounter Admission Attending Care Care Encounter Source Date/Time Date/Time Type Type Clinicians Facility Department ID 2021-01-06 2021-01-06 Outpatient R CHAD [facility] [id number] [facility] 16:20:00 16:20:00 [facility] 2021-01-06 2021-01-06 Outpatient R [facility] [id number] [facility] 16:20:00 16:20:00 [id number] [facility] Results This patient has no known results.
[2022-04-03 07:05] LABS: Absolute Lymphocytes (CBC) 0.6 K/uL (0.7-4.9); Hematocrit 38.1 % (36.0-45.0); Lymphocytes % 5.3 % (15.3-44.8); MPV 8.1 fL (7.6-11.3); RBC Red Blood Cell Count 4.23 M/uL (3.86-4.86)
[2022-04-03] MEDS ORDERED: NA CHLORIDE 0.9% 250 ML ONE ×2 (07:17→07:59)
--- NOTE | 2022-04-03 07:32 | RAD REPORT ---
EXAM DESCRIPTION: Charlie Single View04/03/2022 7:03 am CLINICAL HISTORY: Weakness COMPARISON: March 21, 2022 FINDINGS: Lungs remain hyperaerated. The The lungs appear clear of acute infiltrate. The heart is normal size. Marked scoliosis IMPRESSION: No acute abnormalities displayed
[2022-04-03 07:33] LABS: Troponin High Sensitivity 31.4 pg/mL (<58.9)
[2022-04-03 07:37] LABS: Potassium 2.8 mmol/L (3.5-5.1)
--- NOTE | 2022-04-03 07:54 | ER ---
Nurse's Notes [facility] Name: Gabbie Rich Age: 76 yrs Sex: Female : 1945 Arrival Date: 04/03/2022 Time: 06:25 Bed 4 Private MD: Harjit Jefferson Diagnosis: Acute kidney failure, unspecified;Hypokalemia;Muscle weakness (generalized) Presentation: 04/03 06:38 Chief complaint: Patient states: "I am just so weak and I have a really sore throat, as6 it's hard to swallow". Coronavirus screen: At this time, the client does not indicate any symptoms associated with coronavirus-19. Ebola Screen: No symptoms or risks identified at this time. Initial Sepsis Screen: Does the patient meet any 2 criteria? No. Patient's initial sepsis screen is negative. Does the patient have a suspected source of infection? No. Patient's initial sepsis screen is negative. Risk Assessment: Do you want to hurt yourself or someone else? Patient reports no desire to harm self or others. Onset of symptoms is unknown. 06:38 Method Of Arrival: Wheelchair as6 06:38 Acuity: SENAIT 3 as6 Triage Assessment: 06:57 General: Appears in no apparent distress. emaciated, Behavior is cooperative. Pain: vc1 Complains of pain in left elbow. EENT: Oral mucosa is dry. Neuro: Reports dizziness, weakness. Neuro: Level of Consciousness is awake, alert, obeys commands, Oriented to person, place, time, situation, Appropriate for age. Cardiovascular: Patient's skin is warm and dry. Respiratory: Airway is patent Respiratory effort is even, unlabored, Respiratory pattern is regular, symmetrical. GI: No deficits noted. : No deficits noted. Derm: Wound noted left elbow. Derm:. Musculoskeletal: Reports weakness in right arm, left arm, right leg and left leg Parent/caregiver report the patient having weakness in right arm, left arm, right leg and left leg. Historical: - Allergies: 06:40 No Known Allergies; as6 - PMHx: 06:40 CHF; Hypertension; Hypothyroidism; pulmonary fibrosis; restless leg syndrome; Atrial as6 fibrillation; - PSHx: 06:40 hysterectomy; Right hip replacement; as6 - Immunization history:: Client reports receiving the 2nd dose of the Covid vaccine, moderna. - Social history:: Smoking status: Patient denies any tobacco usage or history of. - Family history:: not pertinent. - Hospitalizations: : No recent hospitalization is reported. Screenin:56 Abuse screen: Denies threats or abuse. Nutritional screening: Difficulty vc1 chewing/swallowing? Yes Had unintentional weight loss of 10 pounds or more. Intervention for positive screen: ED Physician notified. Tuberculosis screening: No symptoms or risk factors identified. Fall Risk Fall in past 12 months (25 points). Secondary diagnosis (15 points) impaired mobility, IV access (20 points). Ambulatory Aid- None/Bed Rest/Nurse Assist (0 pts). Gait- Impaired (20 pts.). Mental Status- Oriented to own ability (0 pts). Total Jacob Fall Scale indicates High Risk Score (45 or more points). Fall prevention measures have been instituted. Side Rails Up X 2 Family Present and informed to notify staff if the need to leave the bedside. Assessment: 07:10 General: Appears uncomfortable, Behavior is calm, cooperative. Pain: Complains of pain vg1 in left leg and right leg and throat Pain currently is 8 out of 10 on a pain scale. Neuro: Level of Consciousness is awake, alert, obeys commands, Oriented to person, place, time, situation. Cardiovascular: Patient's skin is warm and dry. Respiratory: Airway is patent Respiratory effort is even, unlabored. GI: No signs and/or symptoms were reported involving the gastrointestinal system. : No signs and/or symptoms were reported regarding the genitourinary system. EENT: Reports difficulty swallowing pain when swallowing. Derm: Skin is fragile, is thin, Skin is pink, warm \\T\\ dry. Musculoskeletal: Swelling present in right leg and left leg Tenderness present in left leg and right leg. 07:55 Reassessment: Received VO from Dr Liu to administer 250 mL NS IV. vg1 08:04 Reassessment: Patient appears in no apparent distress at this time. No changes from vg1 previously documented assessment. Patient and/or family updated on plan of care and expected duration. Pain level reassessed. Patient is alert, oriented x 3, equal unlabored respirations, skin warm/dry/pink. 09:05 Reassessment: Patient appears in no apparent distress at this time. pt resting with vg1 eyes closed. 10:00 Reassessment: Patient appears in no apparent distress at this time. Patient and/or vg1 family updated on plan of care and expected duration. Pain level reassessed. Patient is alert, oriented x 3, equal unlabored respirations, skin warm/dry/pink. 11:15 Reassessment: Patient appears in no apparent distress at this time. No changes from vg1 previously documented assessment. Patient and/or family updated on plan of care and expected duration. Pain level reassessed. Patient is alert, oriented x 3, equal unlabored respirations, skin warm/dry/pink. assisted pt to bedside commode; performed belinda care; pt tolerated well placed back in bed. 12:15 Reassessment: Patient appears in no apparent distress at this time. resting with eyes vg1 closed, family member at the bedside. 13:11 Reassessment: received VO to administer Diflucan 200 mg PO x1 and Viscous lidocaine 15 vg1 mL PO x1. 15:02 Reassessment: Patient appears in no apparent distress at this time. Patient and/or vg1 family updated on plan of care and expected duration. Pain level reassessed. Patient is alert, oriented x 3, equal unlabored respirations, skin warm/dry/pink. Vital Signs: 06:38 BP 98 / 69; Pulse 64; Resp 16 S; Temp 97.6(O); Pulse Ox 100% on R/A; Weight 31.75 kg as6 (R); Height 5 ft. 0 in. (152.40 cm) (R); Pain 4/10; 07:00 BP 99 / 62; Pulse 53; Resp 13; Pulse Ox 97% on R/A; vg1 08:00 BP 117 / 63; Pulse 51; Resp 12; Pulse Ox 98% on R/A; vg1 09:00 BP 115 / 59; Pulse 59; Resp 15; Pulse Ox 97% on R/A; vg1 10:00 BP 91 / 55; Pulse 61; Resp 13; Pulse Ox 99% on R/A; vg1 11:00 BP 125 / 66; Pulse 56; Resp 12; Pulse Ox 98% on R/A; vg1 12:00 BP 122 / 56; Pulse 55; Resp 15; Pulse Ox 98% on R/A; vg1 13:00 BP 104 / 64; Pulse 58; Resp 14; Pulse Ox 100% on R/A; vg1 06:38 Body Mass Index 13.67 (31.75 kg, 152.40 cm) as6 ED Course: 06:25 Patient arrived in ED. as 06:25 Harjit Jefferson MD is Private Physician. as 06:33 Felipe Morgan MD is Attending Physician. kdr 06:40 Triage completed. as6 06:41 Arm band placed on. as6 06:50 Initial lab(s) drawn, by me, sent to lab. Inserted saline lock: 22 gauge in left bb antecubital area, using aseptic technique. Blood collected. 06:58 Attending Physician role handed off by Felipe Morgan MD rn 06:58 Jordy Liu MD is Attending Physician. rn 07:00 Patient has correct armband on for positive identification. Placed in gown. Bed in low vc1 position. Call light in reach. Side rails up X2. Client placed on continuous cardiac and pulse oximetry monitoring. NIBP monitoring applied. 07:05 XRAY Chest (1 view) In Process Unspecified. EDMS 07:08 Edyta Kendall, RN is Primary Nurse. vg1 07:53 Harjit Jefferson MD is Hospitalizing Provider. rn Administered Medications: 07:20 Drug: NS 0.9% 250 ml Route: IV; Rate: 1 bolus; Site: left antecubital; vg1 07:51 Follow up: IV Status: Completed infusion; IV Intake: 250ml vg1 08:00 Drug: Potassium Chloride 20 mEq Route: IV; Rate: calculated rate; Site: left vg1 antecubital; 11:12 Follow up: IV Status: Completed infusion; IV Intake: 100ml vg1 08:00 Drug: NS 0.9% 250 ml Route: IV; Rate: 50 ml/hr; Site: left antecubital; vg1 11:12 Follow up: IV Status: Completed infusion; IV Intake: 250ml vg1 13:25 Drug: Viscous Lidocaine Liquid (4 %) 10 ml Route: Mucous Membrane; vg1 13:31 Drug: DiFLUcan (fluconazole) 200 mg Route: PO; vg1 15:13 Follow up: Response: No adverse reaction vg1 Intake: 07:51 IV: 250ml; Total: 250ml. vg1 11:12 IV: 100ml; Total: 350ml. vg1 11:12 IV: 250ml; Total: 600ml. vg1 Outcome: 07:54 Decision to Hospitalize by Provider. rn 15:13 Patient left the ED. iw Signatures: Dispatcher [employer] EDMS Felipe Morgan MD MD kdr Martinez, Amelia as Ballard, Brenda, RN RN bb Janeth Coyle RN RN iw Jordy Liu MD MD rn Garcia, Victoria RN RN vg1 Fantasma Price RN RN as6 Breana Horta RN RN vc1 Corrections: (The following items were deleted from the chart) 15:02 13:11 Reassessment: received VO to administer Diflucan 200 mg PO x1 vg1 vg1
--- NOTE | 2022-04-03 07:54 | EDPHYS ---
Physician Documentation [facility] Name: Gabbie Rich Age: 76 yrs Sex: Female : 1945 Arrival Date: 04/03/2022 Time: 06:25 Bed 4 Private MD: Harjit Jefferson ED Physician Jordy Liu HPI: 04/03 07:08 This 76 yrs old Female presents to ER via Wheelchair with complaints of Weakness, rn Dizziness. 07:08 Pt reports about 5 days of generalized weakness, fatigue, dizziness. Reports pain with rn swallowing and feels dehydrated. Just released from hospital 1 week ago. NO fever. No sob. No chest pain or abd pain. no vomiting/diarrhea. . Historical: - Allergies: 06:40 No Known Allergies; as6 - PMHx: 06:40 CHF; Hypertension; Hypothyroidism; pulmonary fibrosis; restless leg syndrome; Atrial as6 fibrillation; - PSHx: 06:40 hysterectomy; Right hip replacement; as6 - Immunization history:: Client reports receiving the 2nd dose of the Covid vaccine, moderna. - Social history:: Smoking status: Patient denies any tobacco usage or history of. - Family history:: not pertinent. - Hospitalizations: : No recent hospitalization is reported. ROS: 07:49 Constitutional: Negative for fever, chills, and weight loss, Eyes: Negative for injury, rn pain, redness, and discharge, ENT: + sore throat Cardiovascular: Negative for chest pain, palpitations, and edema, Respiratory: Negative for shortness of breath, cough, wheezing, and pleuritic chest pain, Abdomen/GI: Negative for abdominal pain, nausea, vomiting, diarrhea, and constipation, MS/Extremity: Negative for injury and deformity, Skin: Negative for injury, rash, and discoloration, Neuro: Negative for headache, numbness, tingling, and seizure. Exam: 07:49 Constitutional: This is a well developed, well nourished patient who is awake, alert, rn and in no acute distress. Head/Face: Normocephalic, atraumatic. Eyes: Periorbital areas with no swelling, redness, or edema. ENT: + dry MM, + thrush/stomatitis Neck: No Meningismus. Cardiovascular: Bradycardic, regular Respiratory: No increased work of breathing, no retractions or nasal flaring. Abdomen/GI: Soft, non-tender Skin: Warm, dry MS/ Extremity: Pulses equal, no cyanosis. Neuro: Awake and alert, GCS 15. Motor strength 4/5 throughout. Vital Signs: 06:38 BP 98 / 69; Pulse 64; Resp 16 S; Temp 97.6(O); Pulse Ox 100% on R/A; Weight 31.75 kg as6 (R); Height 5 ft. 0 in. (152.40 cm) (R); Pain 4/10; 07:00 BP 99 / 62; Pulse 53; Resp 13; Pulse Ox 97% on R/A; vg1 08:00 BP 117 / 63; Pulse 51; Resp 12; Pulse Ox 98% on R/A; vg1 09:00 BP 115 / 59; Pulse 59; Resp 15; Pulse Ox 97% on R/A; vg1 10:00 BP 91 / 55; Pulse 61; Resp 13; Pulse Ox 99% on R/A; vg1 11:00 BP 125 / 66; Pulse 56; Resp 12; Pulse Ox 98% on R/A; vg1 12:00 BP 122 / 56; Pulse 55; Resp 15; Pulse Ox 98% on R/A; vg1 13:00 BP 104 / 64; Pulse 58; Resp 14; Pulse Ox 100% on R/A; vg1 06:38 Body Mass Index 13.67 (31.75 kg, 152.40 cm) as6 MDM: 06:58 Patient medically screened. rn 07:49 Differential Diagnosis acute renal failure, metabolic disturbance, candidiasis, COVID, rn UTI. Data reviewed: vital signs, nurses notes, lab test result(s), EKG, radiologic studies, plain films, and as a result, I will admit patient. Counseling: I had a detailed discussion with the patient and/or guardian regarding: the historical points, exam findings, and any diagnostic results supporting the discharge/admit diagnosis, lab results, radiology results, the need for further work-up and treatment in the hospital. Admission orders: after a detailed discussion of the patient's condition and case, the admit orders are written by me. 04/03 06:34 Order name: Basic Metabolic Panel; Complete Time: :43 kdr 04/03 06:34 Order name: CBC with Diff; Complete Time: :43 kdr 04/03 06:34 Order name: Troponin HS; Complete Time: 07:43 kdr 04/03 06:53 Order name: COVID-19 SARS RT PCR (Document "Date of Onset" if Symptomatic) 2 04/03 07:08 Order name: BNP; Complete Time: 07:43 rn 04/03 07:08 Order name: Urine Microscopic Only rn 04/03 06:34 Order name: XRAY Chest (1 view); Complete Time: 07:43 kdr 04/03 07:08 Order name: Procalcitonin; Complete Time: 08:18 rn 04/03 11:12 Order name: Urine Dipstick-Ancillary EDMS 04/03 06:34 Order name: EKG; Complete Time: 06:34 kdr 04/03 06:34 Order name: Cardiac monitoring; Complete Time: 06:41 kdr 04/03 06:34 Order name: EKG - Nurse/Tech; Complete Time: 06:41 kdr 04/03 06:34 Order name: IV Saline Lock; Complete Time: 07:22 kdr 04/03 06:34 Order name: Labs collected and sent; Complete Time: 07:22 kdr 04/03 06:34 Order name: O2 Per Protocol; Complete Time: 06:41 kdr 04/03 06:34 Order name: O2 Sat Monitoring; Complete Time: 06:41 kdr 04/03 07:08 Order name: Urine Dipstick-Ancillary (obtain specimen); Complete Time: 11:12 rn Administered Medications: 07:20 Drug: NS 0.9% 250 ml Route: IV; Rate: 1 bolus; Site: left antecubital; vg1 07:51 Follow up: IV Status: Completed infusion; IV Intake: 250ml vg1 08:00 Drug: Potassium Chloride 20 mEq Route: IV; Rate: calculated rate; Site: left vg1 antecubital; 11:12 Follow up: IV Status: Completed infusion; IV Intake: 100ml vg1 08:00 Drug: NS 0.9% 250 ml Route: IV; Rate: 50 ml/hr; Site: left antecubital; vg1 11:12 Follow up: IV Status: Completed infusion; IV Intake: 250ml vg1 13:25 Drug: Viscous Lidocaine Liquid (4 %) 10 ml Route: Mucous Membrane; vg1 13:31 Drug: DiFLUcan (fluconazole) 200 mg Route: PO; vg1 15:13 Follow up: Response: No adverse reaction vg1 Disposition Summary: 04/03/22 07:54 Hospitalization Ordered Hospitalization Status: Inpatient Admission rn Provider: Harjit Jefferson rn Location: Telemetry/[facility] (Inpatient) rn Condition: Stable rn Problem: an ongoing problem rn Symptoms: have improved rn Bed/Room Type: Standard rn Room Assignment: 222(04/03/22 12:57) bd Diagnosis - Acute kidney failure, unspecified rn - Hypokalemia rn - Muscle weakness (generalized) rn Forms: - Medication Reconciliation Form rn - SBAR form rn Signatures: Dispatcher [employer] EDMora Whatley Kevin, MD MD kdr Nieto, Roman, MD MD rn Garcia, Victoria, RN RN vg1 Fantasma Price RN RN as6 Corrections: (The following items were deleted from the chart) 12:57 07:54 rn bd
[2022-04-03] MEDS ORDERED: KCL 20 MEQ/100 mL IVPB 100 ML IV ONE (08:00)
[2022-04-03 11:12] LABS: Urine Blood Trace-intact (Negative); Urine Glucose Negative (Negative); Urine Protein Negative (Negative); Urine pH 5.5 (5.0-7.0)
[2022-04-03 11:48] LABS: Urine Bacteria <20 /HPF (<20); Urine RBC <5 /HPF (NONE SEEN); Urine Urothelial Cells <5 /HPF (NONE SEEN)
[2022-04-03] MEDS ORDERED: FLUCONAZOLE 100 MG TAB ONE (13:13)
[2022-04-03] MEDS ORDERED: LIDOCAINE VISCOUS 2% SOLN 15 ML UDC ONE (13:13)
[2022-04-03] MEDS ORDERED: ACETAMINOPHEN 500 MG TAB PO PRN (15:19)
[2022-04-03] MEDS ORDERED: ONDANSETRON 4 MG/2 ML VIAL IV PRN (15:19)
--- NOTE | 2022-04-03 16:37 | P.HP ---
Certification for Inpatient Patient admitted to: Inpatient With expected LOS: >2 Midnights Practitioner: I am a practitioner with admitting privileges, knowledge of patient current condition, hospital course, and medical plan of care. Services: Services provided to patient in accordance with Admission requirements found in Title 42 Section 412.3 of the Code of Federal Regulations Patient History Date of Service: 04/03/22 Reason for admission: JOSH History of Present Illness: 76yo F, PMH: Chronic systolic CHF, CKD3, HTN, hypothyroidism, pulmonary fibrosis, paroxysmal atrial fibrillation/flutter Presents to the ED due to progressively worsening weakness since her most recent discharge. Patient was recently admitted 3-4 weeks ago for COVID-pneumonia, had improvement was discharged home, returned shortly afterwards due to decreased p.o. intake/dehydration, discharged the following day. Since she has been home, she reports continued decreased p.o. intake and worsening generalized weakness. She attributes this all to painful swallowing. She has been feeling hungry and thirsty, however swelling has been too painful for her to get enough nutrition. As result, she has been getting dehydrated and weaker by the day. In the ED, she was noted to have significant elevation in her creatinine, with some electrolyte abnormalities. Despite having decreased p.o. intake, she has continued to take her Lasix at home. She feels her breathing has significantly improved, denies any shortness of breath, has been stable on room air. Allergies No Known Allergies Allergy (Verified 12/25/19 04:11) Home Medications: Levothyroxine Sodium 75 mcg PO DIRECTED 02/24/19 Ropinirole HCl 2 mg PO TID PRN 02/24/19 lisinopriL [Lisinopril] 5 mg PO DAILY #30 tablet 02/27/19 Montelukast [Singulair*] 10 mg PO DAILY 03/14/22 Pantoprazole [Protonix Tab*] 40 mg PO BID #60 tab 03/17/22 Sucralfate [Carafate*] 10 ml PO ACHS #500 ml 03/17/22 predniSONE [Prednisone*] 20 mg PO BID #26 tab 03/17/22 Apixaban [Eliquis] 2.5 mg PO BID 30 Days #60 tablet 03/22/22 Metoprolol Tartrate [Lopressor*] 25 mg PO BID 6AM 6PM 30 Days #60 tab 03/22/22 - Past Medical/Surgical History Diabetic: No -: Hypertension -: Hypothyroid -: CHF reduced ejection fraction -: Asthma -: Severe restless legs -: Pulmonary fibrosis -: Atrial flutter -: Hysterectomy -: Right hip replacement Psychosocial/ Personal History: Patient lives at home. Her daughter helps take care of her. - Family History Mother -: Heart disease, Stroke, Other (see notes) Notes: CHF; HTN - Social History Smoking Status: Never smoker Alcohol use: Yes CD- Drugs: No Caffeine use: Yes Place of Residence: Home Review of Systems 10-point ROS is otherwise unremarkable Physical Examination - Vital Signs Temperature: 97.7 F Blood Pressure: 103/57 Pulse: 68 Respirations: 16 Pulse Ox (%): 95 - Physical Exam General: Alert, Oriented x3, Other (Cachectic) HEENT: Other (Dry mucous membranes), EOMI, Sclerae nonicteric Respiratory: Clear to auscultation bilaterally, Normal air movement Cardiovascular: Edema (trace-1+ b/l lower extremity edema to mid-greene) Gastrointestinal: Soft and benign, Non-distended, No tenderness Musculoskeletal: No contractures Integumentary: No significant lesion, Other (scattered ecchymosis, mild erythema in extremities) Neurological: Normal speech, Normal affect, Other (generalized weakness) - Studies Laboratory Data (last 24 hrs) 04/03/22 06:50: WBC 11.2 H, Hgb 13.0, Hct 38.1 D, Plt Count 217 D 04/03/22 06:50: Sodium 131 L, Potassium 2.8 L*, BUN 95 H D, Creatinine 2.85 H D, Glucose 88 Assessment and Plan - Advance Directives Does patient have a Living Will: No Does patient have a Durable POA for Healthcare: No Physician Review Additional Text: Problem list failure to thrive secondary to decreased PO intake due to Oropharyngeal candidiasis Chronic systolic congestive heart failure JOSH on CKD 3, secondary to dehydration and diuretic use severe protein calorie malnutrition Hypertension Hypothyroidism h/o pulmonary fibrosis h/o recent covid pneumonia Given first dose of 200 mg p.o. fluconazole Patient reports topical lidocaine helped in the ED briefly Patient says otherwise just feeling generalized weak and fatigued, seems all related to poor nutrition, due to throat pain Continue treatment for thrush Topical lidocaine as needed prior to meals Dietitian consult Confirm home medications, restart as appropriate Avoid nephrotoxic medications Hold Lasix for now Gentle IV fluids Nephrology consulted discussed importance of nutrition, has been >7 days since had a decent meal it seems discussed possibility of NGT for temporary tube feeds while treating thrush; if unable to take much PO by tomorrow afternoon, may proceed with dobhoff VTE: home eliquis Code: DNR Dispo: may need SNF vs home health; depending on improvement Time Spent Managing Pts Care (In Minutes): 65
[2022-04-03] MEDS ORDERED: LEVOTHYROXINE SOD 0.075 MG TAB PO SCH (17:00)
[2022-04-03 18:11] VITALS: BMI 13.6
[2022-04-03 18:24] LABS: Magnesium 2.8 mg/dL (1.8-2.4); Potassium 3.5 mmol/L (3.5-5.1)
[2022-04-03] MEDS: SUCRALFATE 1GM/10ML UCUP PO SCH (20:36)
[2022-04-03] MEDS: APIXABAN 2.5 MG TABLET PO SCH (20:36)
[2022-04-03] MEDS: PANTOPRAZOLE 40MG TABLET PO SCH (20:36)
[2022-04-03] MEDS: NA CHLORIDE 0.9% 1,000 ML IV SCH (20:37)
[2022-04-04 05:59] LABS: Absolute Lymphocytes (CBC) 0.4 K/uL (0.7-4.9); Hematocrit 31.8 % (36.0-45.0); Lymphocytes % 6.7 % (15.3-44.8); MPV 8.1 fL (7.6-11.3); Potassium 2.7 mmol/L (3.5-5.1); RBC Red Blood Cell Count 3.48 M/uL (3.86-4.86)
--- NOTE | 2022-04-04 07:06 | P.PN ---
Date of Service: 04/04/22 Subjective: Improving Continues with light plaque/thrush Feels pain down to her esophagus Feels better, able to tolerate some foods with Xylocaine jelly ROS: 10 point ROS as noted above, otherwise negative Physical exam GEN: Alert, oriented, cachectic HEENT: Normal conjunctiva, sclera anicteric, oropharyngeal thrush CV: Regular rate and rhythm, Trace b/l edema Pulm: Nonlabored respirations ABD: Soft, nontender, nondistended Integumentary: LLE: erythema ascending from ankle, warm, mildly tender Neuro: Normal speech, normal affect Problem list failure to thrive secondary to decreased PO intake due to Oropharyngeal candidia sis LLE Cellulitis Chronic systolic congestive heart failure JOSH on CKD 3, secondary to dehydration and diuretic use severe protein calorie malnutrition Hypertension Hypothyroidism h/o pulmonary fibrosis h/o recent covid pneumonia Given first dose of 200 mg p.o. 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
[2022-04-04] MEDS: SUCRALFATE 1GM/10ML UCUP PO SCH ×4 (09:04→20:52)
[2022-04-04] MEDS: PANTOPRAZOLE 40MG TABLET PO SCH ×3 (09:04→21:00)
[2022-04-04] MEDS: LIDOCAINE VISCOUS 2% SOLN 15 ML UDC PO PRN (09:04)
[2022-04-04] MEDS: APIXABAN 2.5 MG TABLET PO SCH ×2 (09:04→20:52)
[2022-04-04] MEDS: NA CHLORIDE 0.9% 1,000 ML IV SCH (09:05)
[2022-04-04] MEDS: KCL 20 MEQ/100 mL IVPB 20 MEQ/100 ML BAG IV SCH ×2 (11:18→14:17)
[2022-04-04] MEDS: FLUCONAZOLE 200mg IVPB 200 MG/100 ML BAG IV SCH (13:34)
[2022-04-04] MEDS: CEFAZOLIN 1 GM in NA CHLORIDE 0.9% 50 ML IVPB SCH ×2 (14:18→20:53)
--- NOTE | 2022-04-04 15:17 | CON ---
Date of Consultation: 04/04/2022 Reason For Consultation: Pedal edema. History Of Present Illness: Ms. Rich was just in the hospital. She was just discharged on 06/2022. She was in the hospital for atrial flutter. Ms. Rich has multiple medical problems inc lude chronic renal disease, COVID, severe pulmonary fibrosis, asthma, hypothyroidism, hypertension. Has chronic diastolic congestive heart failure with [id number] pulmonary hypertension, ejection fraction of 65%. Last stress test was negative in 2019. She has had normal carotid, normal arteria l duplex, normal venous duplex. Comes in with pedal edema and cellulitis. I was consulted. Past Medical History: As stated earlier. Allergies: SHE IS ALLERGIC TO NO MEDICATIONS. Social History: She is a do not resuscitate. Review of Systems: Negative. Family History: Noncontributory. Medications: Present medications include Eliquis, potassium, pantoprazole, sucralfate. She is on Di flucan, inhalers, thyroid. Diagnostic Data: She has a creatinine of 2.45. Her white count was 11. Her potassium was 2.8. Her BNP is 3806. She is still COVID positive. Chest x-ray showed pulmonary fibrosis. No acute process . Impression And Plan: 1.Mild pedal edema with cellulitis. I think she needs to go home on antibiotics. I think she needs to have home health help as well as physical therapy and nursing visitation. 2.Severe pulmonary hypertension. 3.Chronic diastolic congestive heart failure that is stable. Her other problems include persistent COVID, hypertension, hypothyroidism and severe pulmonary fibrosis. She is on appropriate medicine. Case was discussed with Dr. Liu. Her potassium definitely needs to be supplemented. She may need to take high-dose of potassium and magnesium at home. Consider the use of low-dose Aldactone as well . I will sign off her case. NB/MODL Voice ID: [id number] Report ID: [id number]
[2022-04-04] MEDS: ROPINIROLE HCL 2 MG PO PRN (18:30)
[2022-04-04] MEDS: Pantoprazole (granules) 40 MG/BLIST PACKET PO SCH (21:09)
[2022-04-05] MEDS: IPRATROPIUM BROM 0.5MG/2.5ML NEB PRN (02:50)
[2022-04-05] MEDS: ROPINIROLE HCL 2 MG PO PRN (04:42)
[2022-04-05 05:59] LABS: Hematocrit 31.2 % (36.0-45.0); RBC Red Blood Cell Count 3.35 M/uL (3.86-4.86)
[2022-04-05 06:04] LABS: Bilirubin Total 0.6 mg/dL (0.2-1.0); Magnesium 2.1 mg/dL (1.8-2.4); Potassium 3.2 mmol/L (3.5-5.1); Protein, Total 4.8 g/dL (6.4-8.2)
[2022-04-05] MEDS: KCL 20 MEQ/100 mL IVPB 20 MEQ/100 ML BAG IV SCH ×2 (06:23→08:40)
[2022-04-05] MEDS ORDERED: NA CHLORIDE 0.9% 250 ML ONE (06:29)
--- NOTE | 2022-04-05 07:00 | P.PN ---
Date of Service: 04/05/22 Subjective: improving throat pain improving eating more, able to keep down ensure ROS: 10 point ROS as noted above, otherwise negative Physical exam GEN: Alert, oriented, cachectic HEENT: Normal conjunctiva, sclera anicteric, mild oropharyngeal thrush CV: Regular rate and rhythm, Trace b/l edema Pulm: Nonlabored respirations ABD: Soft, nontender, nondistended Integumentary: LLE: erythema ascending from ankle, warm, mildly tender Neuro: Normal speech, normal affect Problem list failure to thrive secondary to decreased PO intake due to Oropharyngeal candidiasis LLE Cellulitis Chronic systolic congestive heart failure JOSH on CKD 3, secondary to dehydration and diuretic use severe protein calorie malnutrition Hypertension Hypothyroidism h/o pulmonary fibrosis h/o recent covid pneumonia Given first dose of 200 mg p.o. 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
[2022-04-05] MEDS: Pantoprazole (granules) 40 MG/BLIST PACKET PO SCH ×3 (08:40→21:47)
[2022-04-05] MEDS: MONTELUKAST 10 MG TAB PO SCH (08:40)
[2022-04-05] MEDS: SUCRALFATE 1GM/10ML UCUP PO SCH ×4 (08:40→21:00)
[2022-04-05] MEDS: LIDOCAINE VISCOUS 2% SOLN 15 ML UDC PO PRN (08:40)
[2022-04-05] MEDS: APIXABAN 2.5 MG TABLET PO SCH ×2 (08:41→21:47)
[2022-04-05] MEDS: ENSURE ENLIVE 237 ML CAN PO SCH ×3 (08:43→16:43)
[2022-04-05] MEDS: CEFAZOLIN 1 GM in NA CHLORIDE 0.9% 50 ML IVPB SCH ×2 (10:22→21:47)
[2022-04-05] MEDS: FLUCONAZOLE 200mg IVPB 200 MG/100 ML BAG IV SCH (13:42)
[2022-04-06] MEDS ORDERED: ROPINIROLE 2 MG PO PRN (02:43)
[2022-04-06] MEDS ORDERED: ROPINIROLE HCL 1 MG TAB PO PRN (03:02)
[2022-04-06 06:31] LABS: Hematocrit 30.3 % (36.0-45.0); RBC Red Blood Cell Count 3.32 M/uL (3.86-4.86)
--- NOTE | 2022-04-06 06:51 | P.PN ---
Date of Service: 04/06/22 Subjective: improving throat pain improving tongue feels coated this morning strength improving ate ~90% of breakfast today tolerating 3 ensures/day ROS: 10 point ROS as noted above, otherwise negative Physical exam GEN: Alert, oriented, cachectic HEENT: Normal conjunctiva, sclera anicteric, mild oropharyngeal thrush, small lesions on tongue CV: irregularly irregular rhythm, trace b/l edema just above ankles Pulm: Nonlabored respirations on room air ABD: Soft, nontender, nondistended Integumentary: LLE: erythema @ ankle, warm, mildly tender Neuro: Normal speech, normal affect Problem list failure to thrive secondary to decreased PO intake due to Oropharyngeal candidiasis LLE Cellulitis Chronic systolic congestive heart failure JOSH on CKD 3, secondary to dehydration and diuretic use severe protein calorie malnutrition Hypertension Hypothyroidism h/o pulmonary fibrosis h/o recent covid pneumonia Given first dose of 200 mg p.o. 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
[2022-04-06 06:55] LABS: Albumin 1.8 g/dL (3.4-5.0); Bilirubin Total 0.4 mg/dL (0.2-1.0); Protein, Total 4.8 g/dL (6.4-8.2)
[2022-04-06] MEDS: SUCRALFATE 1GM/10ML UCUP PO SCH ×4 (07:30→20:26)
[2022-04-06] MEDS: ENSURE ENLIVE 237 ML CAN PO SCH ×3 (08:00→17:00)
[2022-04-06] MEDS: CEFAZOLIN 1 GM in NA CHLORIDE 0.9% 50 ML IVPB SCH ×2 (09:03→20:25)
[2022-04-06] MEDS: Pantoprazole (granules) 40 MG/BLIST PACKET PO SCH ×2 (11:03→20:26)
[2022-04-06] MEDS: MONTELUKAST 10 MG TAB PO SCH (11:04)
[2022-04-06] MEDS: APIXABAN 2.5 MG TABLET PO SCH ×2 (11:04→20:26)
[2022-04-06] MEDS: FLUCONAZOLE 200mg IVPB 200 MG/100 ML BAG IV SCH (13:42)
[2022-04-06] MEDS: IPRATROPIUM BROM 0.5MG/2.5ML NEB PRN (17:31)
--- NOTE | 2022-04-06 17:39 | EKG ---
Test Date: 2022-04-03 Test Time: 06:36:27 Interior Surface Insulation Worker: ALEJANDRO MEASUREMENT RESULTS: Intervals: Rate: 61 TN: 140 QRSD: 98 QT: 468 QTc: 471 [place]: P: 76 TN: 140 QRS: 68 T: 81 INTERPRETIVE STATEMENTS: Normal sinus rhythm Right atrial enlargement Moderate voltage criteria for LVH, may be normal variant Borderline ECG Compared to ECG 03/20/2022 23:54:42 Atrial abnormality now present Left ventricular hypertrophy now present Atrial fibrillation no longer present ST (T wave) deviation no longer present Electronically Signed On 04-06-22 17:32:27 CDT by Arnie Veronica
[2022-04-06] MEDS: PHENOL 1.4% ORAL SPRAY 180ML MM PRN (18:31)
[2022-04-06] MEDS: METOPROLOL TAR 25 MG TAB PO SCH (18:31)
[2022-04-07] MEDS: METOPROLOL TAR 25 MG TAB PO SCH ×2 (05:48→18:00)
--- NOTE | 2022-04-07 06:39 | P.PN ---
Date of Service: 04/07/22 Subjective: improving appetite improved swalllowing pain is better stood up at bedside more energy ROS: 10 point ROS as noted above, otherwise negative Physical exam GEN: Alert, oriented, cachectic HEENT: Normal conjunctiva, sclera anicteric, mild oropharyngeal thrush, small lesions on tip of tongue CV: irregularly irregular rhythm, trace b/l edema just above ankles Pulm: Nonlabored respirations on room air ABD: Soft, nontender, nondistended Integumentary: LLE: mild erythema @ ankle, warm, mildly tender Neuro: Normal speech, normal affect Problem list failure to thrive secondary to decreased PO intake due to Oropharyngeal candidiasis LLE Cellulitis Chronic systolic congestive heart failure JOSH on CKD 3, secondary to dehydration and diuretic use severe protein calorie malnutrition Hypertension Hypothyroidism h/o pulmonary fibrosis h/o recent covid pneumonia Given first dose of 200 mg p.o. 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
[2022-04-07 06:46] LABS: Hematocrit 29.3 % (36.0-45.0); MPV 7.8 fL (7.6-11.3); RBC Red Blood Cell Count 3.17 M/uL (3.86-4.86)
[2022-04-07 07:02] LABS: AST/SGOT 23 U/L (15-37); Albumin 1.7 g/dL (3.4-5.0); Alkaline Phosphatase 65 U/L (45-117); BUN Blood Urea Nitrogen 25 mg/dL (7-18); Bicarbonate 29 mmol/L (21-32); Bilirubin Total 0.4 mg/dL (0.2-1.0); Glomerular Filtration Rate 62 ml/min (=/>90); Glucose Level 87 mg/dL (74-106); Magnesium 1.9 mg/dL (1.8-2.4); Potassium 3.9 mmol/L (3.5-5.1); Protein, Total 4.6 g/dL (6.4-8.2); Sodium Level 137 mmol/L (136-145)
[2022-04-07 07:05] LABS: ALT/SGPT < 10 U/L (12-78)
[2022-04-07] MEDS ORDERED: POTASSIUM 25 MEQ EFFERV TAB PO ONE (08:00)
[2022-04-07] MEDS: ENSURE ENLIVE 237 ML CAN PO SCH ×3 (08:00→17:00)
[2022-04-07] MEDS: CEFAZOLIN 1 GM in NA CHLORIDE 0.9% 50 ML IVPB SCH ×2 (08:28→20:52)
[2022-04-07] MEDS: SUCRALFATE 1GM/10ML UCUP PO SCH ×4 (08:29→20:53)
[2022-04-07] MEDS: MONTELUKAST 10 MG TAB PO SCH (08:29)
[2022-04-07] MEDS: FLUCONAZOLE 100 MG TAB PO SCH (08:29)
[2022-04-07] MEDS: Pantoprazole (granules) 40 MG/BLIST PACKET PO SCH ×2 (08:30→20:53)
[2022-04-07] MEDS: APIXABAN 2.5 MG TABLET PO SCH ×2 (08:31→20:53)
[2022-04-07] MEDS: PHENOL 1.4% ORAL SPRAY 180ML MM PRN (11:51)
[2022-04-07] MEDS ORDERED: D5 0.9 NS 1,000 ML IV ONE (21:31)
[2022-04-08] MEDS: METOPROLOL TAR 25 MG TAB PO SCH ×2 (06:05→17:40)
[2022-04-08 06:42] LABS: AST/SGOT 25 U/L (15-37); Albumin 1.7 g/dL (3.4-5.0); Alkaline Phosphatase 66 U/L (45-117); BUN Blood Urea Nitrogen 18 mg/dL (7-18); Bicarbonate 27 mmol/L (21-32); Bilirubin Total 0.4 mg/dL (0.2-1.0); Glomerular Filtration Rate 66 ml/min (=/>90); Glucose Level 80 mg/dL (74-106); Magnesium 1.8 mg/dL (1.8-2.4); Potassium 4.2 mmol/L (3.5-5.1); Prealbumin 10.6 mg/dL (20-40); Protein, Total 4.7 g/dL (6.4-8.2); Sodium Level 136 mmol/L (136-145)
[2022-04-08 06:44] LABS: ALT/SGPT < 10 U/L (12-78)
--- NOTE | 2022-04-08 06:51 | P.PN ---
Date of Service: 04/08/22 Subjective: only drank 1 ensure crying today ROS: 10 point ROS as noted above, otherwise negative Physical exam GEN: Alert, oriented, cachectic HEENT: small lesions on tongue, whitish plaque CV: irregularly irregular rhythm, trace b/l edema just above ankles Pulm: Nonlabored respirations on room air ABD: Soft, nontender, nondistended Integumentary: LLE: mild erythema @ ankle, warm, mildly tender Neuro: Normal speech, normal affect Problem list failure to thrive secondary to decreased PO intake due to Oropharyngeal candidiasis LLE Cellulitis Chronic systolic congestive heart failure JOSH on CKD 3, secondary to dehydration and diuretic use severe protein calorie malnutrition Hypertension Hypothyroidism h/o pulmonary fibrosis h/o recent covid pneumonia Given first dose of 200 mg p.o. 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 patient was limiting her diet at home due to being placed on renal diet briefly in hospital before restarted metoprolol 04/05; HR improved improving LLE with erythema/warmth/tender; started ancef for cellulitis on 04/04 PT working with patient, slowly improving, very weak albumin downtrending; likely contributing / cause of mild b/l pedal edema discussed feeding tube if no improvement, suspect if tongue pain improves, she will eat more VTE: home eliquis Code: DNR Dispo: patient weak, orthostatic; limited assistance at home needs SNF Time Spent Managing Pts Care (In Minutes): 35
[2022-04-08] MEDS: ENSURE ENLIVE 237 ML CAN PO SCH ×3 (08:00→17:00)
[2022-04-08] MEDS: SUCRALFATE 1GM/10ML UCUP PO SCH ×4 (08:19→23:21)
[2022-04-08] MEDS: MONTELUKAST 10 MG TAB PO SCH (08:20)
[2022-04-08] MEDS: FLUCONAZOLE 100 MG TAB PO SCH (08:20)
[2022-04-08] MEDS: CEFAZOLIN 1 GM in NA CHLORIDE 0.9% 50 ML IVPB SCH ×2 (08:20→20:55)
[2022-04-08] MEDS: Pantoprazole (granules) 40 MG/BLIST PACKET PO SCH ×2 (08:20→20:56)
[2022-04-08] MEDS: APIXABAN 2.5 MG TABLET PO SCH ×2 (08:20→20:56)
[2022-04-08] MEDS: LEVOTHYROXINE SOD 0.075 MG TAB PO SCH (08:20)
[2022-04-08] MEDS: NYSTATIN 500,000 UNIT/5 ML UDC PO SCH ×2 (17:12→20:56)
[2022-04-09] MEDS: METOPROLOL TAR 25 MG TAB PO SCH ×2 (06:00→18:19)
[2022-04-09 06:14] LABS: Hematocrit 28.3 % (36.0-45.0); MPV 7.5 fL (7.6-11.3); RBC Red Blood Cell Count 2.67 M/uL (3.86-4.86)
[2022-04-09 06:31] LABS: Albumin 1.6 g/dL (3.4-5.0); Bilirubin Total 0.4 mg/dL (0.2-1.0); Magnesium 1.7 mg/dL (1.8-2.4); Potassium 4.1 mmol/L (3.5-5.1)
[2022-04-09 06:32] LABS: Phosphorus 0.7 mg/dL (2.5-4.9)
[2022-04-09] MEDS: LEVOTHYROXINE SOD 0.075 MG TAB PO SCH (07:30)
[2022-04-09] MEDS ORDERED: POTASSIUM PHOS 30 MM in NA CHLORIDE 0.9% 500 ML IV ONE (09:00)
[2022-04-09] MEDS: Pantoprazole (granules) 40 MG/BLIST PACKET PO SCH ×2 (09:12→21:27)
[2022-04-09] MEDS: NYSTATIN 500,000 UNIT/5 ML UDC PO SCH ×4 (09:12→21:27)
[2022-04-09] MEDS: CEFAZOLIN 1 GM in NA CHLORIDE 0.9% 50 ML IVPB SCH ×2 (09:13→21:26)
[2022-04-09] MEDS: FLUCONAZOLE 100 MG TAB PO SCH (09:13)
[2022-04-09] MEDS: APIXABAN 2.5 MG TABLET PO SCH ×2 (09:13→21:27)
[2022-04-09] MEDS: MONTELUKAST 10 MG TAB PO SCH (09:13)
[2022-04-09] MEDS: SUCRALFATE 1GM/10ML UCUP PO SCH ×4 (09:14→21:00)
[2022-04-09] MEDS: ENSURE ENLIVE 237 ML CAN PO SCH ×3 (09:14→17:09)
--- NOTE | 2022-04-09 16:06 | EKG ---
Test Date: 2022-04-06 Test Time: 08:05:05 Sand Buffer: CEDRIC MEASUREMENT RESULTS: Intervals: Rate: 0 MD: QRSD: 0 QT: 0 QTc: 0 [place]: P: MD: QRS: 0 T: 0 INTERPRETIVE STATEMENTS: No QRS complexes found, no ECG analysis possible Compared to ECG 04/03/2022 06:36:27 Sinus rhythm no longer present Atrial abnormality no longer present Left ventricular hypertrophy no longer present Electronically Signed On 04-09-22 16:04:51 CDT by Thee Beckman
--- NOTE | 2022-04-09 17:24 | P.PN ---
Subjective Date of Service: 04/09/22 Chief Complaint: JOSH Patient states she is tolerating more food. She has no new complaint except that her tongue is still sore. Physical Examination - Vital Signs Temperature: 97.8 F Blood Pressure: 119/74 Pulse: 88 Respirations: 20 Pulse Ox (%): 98 Assessment And Plan - Plan Physical exam GEN: Alert, oriented, cachectic HEENT: Oral candidiasis CV: irregularly irregular rhythm, trace b/l ankle edema Pulm: Nonlabored respirations on room air, clear to auscultation. ABD: Soft, nontender, nondistended Integumentary: LLE: mild erythema @ ankle, warm, mildly tender Neuro: Normal speech, normal affect Problem list failure to thrive secondary to decreased PO intake due to Oropharyngeal candidiasis LLE Cellulitis Chronic systolic congestive heart failure JOSH on CKD 3, secondary to dehydration and diuretic use severe protein calorie malnutrition Hypertension Hypothyroidism h/o pulmonary fibrosis h/o recent covid pneumonia Continue oral fluconazole, continue nystatin swish / swallow structural shop helper is following for malnutrition reports h/o difficulty swallowing pills for decades, prefers liquid /crushes pill ensure ordered. Also on Chloraseptic for oral pain. Candidiasis is improving JOSH secondary to severe dehydration; renal function improved after IV fluids. restarted metoprolol 04/05; HR improved Continue Ancef for cellulitis of lower extremity. PT working with patient, slowly improving, very weak albumin downtrending; likely contributing / cause of mild b/l pedal edema Patient is eating more with soft diet and liquids.
[2022-04-10 04:01] LABS: Absolute Lymphocytes (CBC) 0.5 K/uL (0.7-4.9); Hematocrit 29.8 % (36.0-45.0); Lymphocytes % 14.6 % (15.3-44.8); RBC Red Blood Cell Count 2.98 M/uL (3.86-4.86)
[2022-04-10 04:24] LABS: AST/SGOT 25 U/L (15-37); Albumin 1.7 g/dL (3.4-5.0); Alkaline Phosphatase 73 U/L (45-117); BUN Blood Urea Nitrogen 16 mg/dL (7-18); Bicarbonate 28 mmol/L (21-32); Bilirubin Total 0.4 mg/dL (0.2-1.0); Glomerular Filtration Rate 70 ml/min (=/>90); Glucose Level 85 mg/dL (74-106); Potassium 4.3 mmol/L (3.5-5.1); Protein, Total 4.9 g/dL (6.4-8.2); Sodium Level 137 mmol/L (136-145)
[2022-04-10 04:25] LABS: ALT/SGPT < 10 U/L (12-78)
[2022-04-10] MEDS: METOPROLOL TAR 25 MG TAB PO SCH ×2 (06:05→17:35)
[2022-04-10] MEDS: CEFAZOLIN 1 GM in NA CHLORIDE 0.9% 50 ML IVPB SCH (08:27)
[2022-04-10] MEDS: NYSTATIN 500,000 UNIT/5 ML UDC PO SCH ×4 (08:27→21:40)
[2022-04-10] MEDS: Pantoprazole (granules) 40 MG/BLIST PACKET PO SCH ×2 (08:27→21:40)
[2022-04-10] MEDS: APIXABAN 2.5 MG TABLET PO SCH ×2 (08:28→21:40)
[2022-04-10] MEDS: FLUCONAZOLE 100 MG TAB PO SCH (08:28)
[2022-04-10] MEDS: SUCRALFATE 1GM/10ML UCUP PO SCH ×4 (08:28→21:40)
[2022-04-10] MEDS: MONTELUKAST 10 MG TAB PO SCH (08:28)
[2022-04-10] MEDS: LEVOTHYROXINE SOD 0.075 MG TAB PO SCH (08:28)
[2022-04-10] MEDS: ENSURE ENLIVE 237 ML CAN PO SCH ×3 (08:28→17:36)
[2022-04-10] MEDS: POTASS/SODIUM PHOSPHATE 1 PKT POWD.PACK PO SCH ×3 (08:29→11:00)
--- NOTE | 2022-04-10 10:52 | P.PN ---
Subjective Date of Service: 04/10/22 Chief Complaint: JOSH Patient is tolerating more food. She has no new complaint. She is tolerating PT. Physical Examination - Vital Signs Temperature: 97.8 F Blood Pressure: 96/59 Pulse: 62 Respirations: 16 Pulse Ox (%): 94 Assessment And Plan - Plan Physical exam GEN: Alert, oriented, cachectic HEENT: Oral candidiasis CV: irregularly irregular rhythm, trace b/l ankle edema Pulm: Nonlabored respirations on room air, clear to auscultation. ABD: Soft, nontender, nondistended Integumentary: LLE: mild erythema @ ankle, warm, mildly tender Neuro: Normal speech, normal affect Problem list failure to thrive secondary to decreased PO intake due to Oropharyngeal candidiasis LLE Cellulitis Chronic systolic congestive heart failure JOSH on CKD 3, secondary to dehydration and diuretic use severe protein calorie malnutrition Hypertension Hypothyroidism h/o pulmonary fibrosis h/o recent covid pneumonia Continue oral fluconazole, continue nystatin swish / swallow public housing interviewer is following for malnutrition Ensure ordered. Also on Chloraseptic for oral pain. Candidiasis is improving JOSH secondary to severe dehydration; JOSH resolved after IV fluids. On metoprolol, HR improved Continue Ancef for cellulitis of lower extremity. PT working with patient, slowly improving, very weak Patient is eating more with soft diet and liquids. Disposition: Awaiting acceptance to [facility] for rehab.
--- NOTE | 2022-04-10 12:57 | EKG ---
Test Date: 2022-04-06 Test Time: 08:11:58 Property Management Accountant: CEDRIC MEASUREMENT RESULTS: Intervals: Rate: 115 [place]: 128 QRSD: 62 QT: 328 QTc: 453 [place]: P: [place]: 128 QRS: 36 T: 62 INTERPRETIVE STATEMENTS: Sinus tachycardia with premature atrial complexes Nonspecific ST and T wave abnormality Abnormal ECG Compared to ECG 04/06/2022 08:05:05 Atrial premature complex(es) now present ST (T wave) deviation now present Electronically Signed On 04-10-22 12:55:18 CDT by Thee Beckman
[2022-04-11] MEDS: METOPROLOL TAR 25 MG TAB PO SCH (05:54)
[2022-04-11 06:06] LABS: Phosphorus 1.4 mg/dL (2.5-4.9); Potassium 3.6 mmol/L (3.5-5.1)
[2022-04-11] MEDS: LEVOTHYROXINE SOD 0.075 MG TAB PO SCH (07:30)
[2022-04-11] MEDS: ENSURE ENLIVE 237 ML CAN PO SCH ×2 (08:00→12:00)
[2022-04-11] MEDS ORDERED: POTASSIUM PHOS IN 0.9 % NACL 15 MMOL/250 ML BAG IV ONE (08:00)
[2022-04-11] MEDS: NYSTATIN 500,000 UNIT/5 ML UDC PO SCH ×2 (08:28→13:00)
[2022-04-11] MEDS: APIXABAN 2.5 MG TABLET PO SCH (08:29)
[2022-04-11] MEDS: FLUCONAZOLE 100 MG TAB PO SCH (08:29)
[2022-04-11] MEDS: SUCRALFATE 1GM/10ML UCUP PO SCH ×2 (08:29→11:30)
[2022-04-11] MEDS: Pantoprazole (granules) 40 MG/BLIST PACKET PO SCH (08:29)
[2022-04-11] MEDS: MONTELUKAST 10 MG TAB PO SCH (08:29)
--- NOTE | 2022-04-11 08:58 | P.DS ---
Admission Date: 04/03/22 Discharge Date: 04/11/22 Disposition: TRANSFER TO LONG TERM Discharge Condition: FAIR Reason for Admission: JOSH Brief History of Present Illness: 76yo F, PMH: Chronic systolic CHF, CKD3, HTN, hypothyroidism, pulmonary fibrosis, paroxysmal atrial fibrillation/flutter presented to the ED due to progressively worsening weakness since her most recent discharge. Patient was admitted 3-4 weeks prior for COVID-pneumonia, condition improved and was discharged home. She returned shortly afterwards due to decreased p.o. intake/dehydration and discharged the following day. She reported continued decreased p.o. intake and worsening generalized weakness. She attributes her inability to eat to painful swallowing. As result, she has been getting dehydrated and weaker by the day. In the ED, she was noted to have significant elevation in her creatinine, with electrolyte abnormalities. She continued to take her Lasix at home. Patient admitted for further management. Hospital Course: Diagnosis failure to thrive secondary to decreased PO intake due to Oropharyngeal candidiasis LLE Cellulitis Chronic systolic congestive heart failure JOSH on CKD 3, secondary to dehydration and diuretic use severe protein calorie malnutrition Hypertension Hypothyroidism h/o pulmonary fibrosis h/o recent covid pneumonia Patient admitted to the medical floor and started on IV hydration. She was noted to have oral candidiasis and therefore started on Diflucan and nystatin swish and swallow. Seen by tray line supervisor for malnutrition Ensure ordered. Also was on Chloraseptic for oral pain. She was suspected to have left lower extremity cellulitis which was treated with IV Ancef Oral candidiasis improved, patient oral intake also improved. She was tolerating more soft diet and liquids. She had JOSH secondary to severe dehydration which resolved with IV fluids. Seen and evaluated by PT. She received PT sessions and functional status is slowly improving though still quite weak Vitals are stable, clinical condition is stable. Patient has been accepted to [facility] for skilled rehab. She is clinically stable for discharge. Vital Signs/Physical Exam: Temp Pulse Resp BP Pulse Ox 98.7 F 67 17 121/61 98 04/11/22 04:00 04/11/22 05:54 04/11/22 04:00 04/11/22 05:54 04/11/22 04:00 General: Alert, In no apparent distress, Oriented x3, Cachectic HEENT: Mucous membr. moist/pink Neck: JVD not distended Respiratory: Clear to auscultation bilaterally, Normal air movement Cardiovascular: No edema, Regular rate/rhythm, Normal S1 S2 Gastrointestinal: Normal bowel sounds, Soft and benign, Non-distended, No tenderness Musculoskeletal: No swelling Integumentary: No rashes, No cyanosis Neurological: Normal strength at 5/5 x4 extr Laboratory Data at Discharge: WBC 3.3 K/uL (4.3-10.9) L D 04/10/22 03:44 Hgb 10.9 g/dL (12.0-15.0) L 04/10/22 03:44 Hct 29.8 % (36.0-45.0) L 04/10/22 03:44 Plt Count 196 K/uL (152-406) 04/10/22 03:44 Sodium 135 mmol/L (136-145) L 04/11/22 05:40 Potassium 3.6 mmol/L (3.5-5.1) 04/11/22 05:40 BUN 16 mg/dL (7-18) 04/11/22 05:40 Creatinine 0.93 mg/dL (0.55-1.3) 04/11/22 05:40 Glucose 71 mg/dL (74-106) L 04/11/22 05:40 Phosphorus 1.4 mg/dL (2.5-4.9) L 04/11/22 05:40 Magnesium 1.7 mg/dL (1.8-2.4) L 04/09/22 05:41 Total Bilirubin 0.4 mg/dL (0.2-1.0) 04/10/22 03:49 AST 25 U/L (15-37) 04/10/22 03:49 ALT < 10 U/L (12-78) L 04/10/22 03:49 Alkaline Phosphatase 73 U/L (45-117) 04/10/22 03:49 Home Medications: Levothyroxine Sodium 75 mcg PO DIRECTED 02/24/19 Ropinirole HCl 2 mg PO TID PRN 02/24/19 Montelukast [Singulair*] 10 mg PO DAILY 03/14/22 Pantoprazole [Protonix Tab*] 40 mg PO BID #60 tab 03/17/22 Sucralfate [Carafate*] 10 ml PO ACHS #500 ml 03/17/22 Apixaban [Eliquis *] 2.5 mg PO BID 30 Days #60 tablet 03/22/22 Metoprolol Tartrate [Lopressor*] 25 mg PO BID 6AM 6PM 30 Days #60 tab 03/22/22 Ensure Enlive 237 ml PO TIDWM can 04/11/22 Fluconazole 200 mg PO DAILY #9 tablet 04/11/22 Nystatin 5 ml PO QID 7 Days ml 04/11/22 Ropinirole HCl [Requip*] 1 mg PO BEDTIME PRN tab 04/11/22 New Medications: Fluconazole 200 mg PO DAILY #9 tablet Nystatin 5 ml PO QID 7 Days ml Diet: Regular (Soft diet) Activity: Fall precautions Followup: Harjit Jefferson MD [Primary Care Provider] - 1-2 Weeks (Call to schedule appointment.) Time spent managing pt's care (in minutes): 38
[2022-04-11 13:26] VITALS: BP 117/74; TEMP 97.6
[2022-04-11 15:41] VITALS: O2SAT 96
== END 2022-04-11 15:53 | DRG 682 ==
LOC: ER 06:24 → ERHOLD 09:59 → 2ND 14:59
PROVIDERS: ADMIT Hospitalist; ATTEND Internal Medicine
DX: N17.9 Acute kidney failure, unspecified (principal); E43 Unspecified severe protein-calorie malnutrition; U07.1 COVID-19; B37.0 Candidal stomatitis; I13.0 Hypertensive heart and chronic kidney disease with heart failure and stage 1 through stage 4 chronic kidney disease, or unspecified chronic kidney disease; I48.92 Unspecified atrial flutter; L03.116 Cellulitis of left lower limb; R64 Cachexia; I50.22 Chronic systolic (congestive) heart failure; Z68.1 Body mass index [BMI] 19.9 or less, adult; J84.10 Pulmonary fibrosis, unspecified; I48.0 Paroxysmal atrial fibrillation; N18.30 Chronic kidney disease, stage 3 unspecified; E03.9 Hypothyroidism, unspecified; E86.0 Dehydration; R62.7 Adult failure to thrive; Z86.16 Personal history of COVID-19; Z66 Do not resuscitate
CPT/HCPCS: 36415; 71045; 80048; 80053; 81003; 81015; 83735; 83880; 84100; 84132; 84134; 84145; 84484; 85025; 85027; 93005; 94640; 96365; 96366; 96368; 97112; 97116; 97161; 97530; 99284; J0690; J1450; J2405; J3480; J7030; J7040; J7042; J7050; U0003

== ENCOUNTER 2022-07-11 11:26 | Emergency (ER) | payer OTHER ==
--- OUTSIDE RECORDS SUMMARY | 2022-07-11 11:28 | XMS REPORT | Continuity of Care Document ---
:1945 Author Organization [facility] t Address [address] [place] [address] Care Team Providers Name Role Phone AMAYA BONILLA Attending Clinician Unavailable Payers Payer Name Policy Type Policy Number Effective Date Expiration Date S clay [employer] MEDICARE ADV [id number] 2018 00:00:00 Problems This patient has no known problems. Allergies, Adverse Reactions, Alerts Allergy Allergy Status Severity Reaction(s) Onset Inactive Treating Comm ents Source Name Type Date Date Clinician NO KNOWN Drug Active [facility] ALLERGIE Class [facility] Medications This patient has no known medications. Procedures This patient has no known procedures. Encounters Start End Encounter Admission Attending Care Care Encounter Source Date/Time Date/Time Type Type Clinicians Facility Department ID 2021-01-06 2021-01-06 Outpatient R CHAD [facility] [id number] [facility] 16:20:00 16:20:00 AMAYA [facility] 2021-01-06 2021-01-06 Outpatient R [facility] [id number] [facility] 16:20:00 16:20:00 [id number] [facility] Results This patient has no known results.
[2022-07-11] MEDS ORDERED: ACETAMINOPHEN 500 MG TAB ONE (11:47)
[2022-07-11] MEDS ORDERED: TETANUS & DIPHTHERIA TOX,ADULT 0.5 ML VIAL ONE (11:53)
--- NOTE | 2022-07-11 12:03 | RAD REPORT ---
EXAM DESCRIPTION: CT - [id number] - 07/11/2022 11:52 am CLINICAL HISTORY: Trauma, head and neck injury. trauma fall COMPARISON: C Spine Wo Con dated 11/01/2021; Head C Spine Mpr Wo Con dated 08/24/2017 TECHNIQUE: Axial 5 mm thick images of the head were obtained. Axial 2 mm thick images of the cervical spine were obtained with sagittal and coronal reconstruction images generated and reviewed. All CT scans are performed using dose optimization technique as appropriate and may include automated exposure control or mA/KV adjustment according to patient size. FINDINGS: CT HEAD WITHOUT CONTRAST: No acute hemorrhage, hydrocephalus or extra-axial collection is identified.No areas of brain edema or midline shift. The paranasal sinuses and mastoids are clear.The calvarium is intact. CT CERVICAL SPINE WITHOUT CONTRAST: No fracture or traumatic subluxation.Focal kyphosis noted at C3-4.Similar anterolisthesis of C3 on C4 . This measures approximately 5 millimeters. C3, C4, and C5 have fused secondary to underlying degene rative changes. There is retrolisthesis of this fused section on C6 by approximately 2 millimeters. A dvanced degenerative changes are present at C6-7 and C7-T1. Central spinal stenosis is likely present at C2-3. Scarring in the lung apices. IMPRESSION: No acute intracranial or cervical spine findings.
--- NOTE | 2022-07-11 12:22 | RAD REPORT ---
EXAM DESCRIPTION: RAD - Sacrum And Coccyx - 07/11/2022 12:14 pm CLINICAL HISTORY: PAIN COMPARISON: No comparisons FINDINGS/IMPRESSION: No acute fracture. No malalignment. Moderate left acetabular degenerative jimenez es. Intact right hip arthroplasty which is partially imaged.
--- NOTE | 2022-07-11 12:45 | ER ---
Nurse's Notes [facility] Name: Gabbie Rich Age: 76 yrs Sex: Female : 1945 Arrival Date: 07/11/2022 Time: 11:27 Bed 3 Private MD: Harjit Jefferson Diagnosis: Skin tear;Closed head injury Presentation: 07/11 11:34 Chief complaint: Patient states: trauma alert cxalled 1131; at 10:15 pt fell at home jh5 due to losing her balance, hit her head. Pt takes elequis due to AFIB. Pt denies any dizziness, denies LOC, denies vomiting. No active profuse bleeding noted. Pt has multiple skin tears to bilateral upper extremities, bleeding is controlled. Coronavirus screen: Vaccine status: Patient reports receiving the 2nd dose of the covid vaccine. Client denies travel out of the [place] in the last 14 days. Ebola Screen: Patient negative for fever greater than or equal to 101.5 degrees Fahrenheit, and additional compatible Ebola Virus Disease symptoms Patient denies exposure to infectious person. Patient denies travel to an Ebola-affected area in the 21 days before illness onset. Initial Sepsis Screen: Does the patient meet any 2 criteria? No. Patient's initial sepsis screen is negative. Does the patient have a suspected source of infection? No. Patient's initial sepsis screen is negative. Risk Assessment: Do you want to hurt yourself or someone else? Patient reports no desire to harm self or others. Onset of symptoms was July 11, 2022. 11:34 Method Of Arrival: Ambulatory [facility] 11:34 Acuity: SENAIT 2 5 13:10 Care prior to arrival: None. Mechanism of Injury: Fall. Trauma event details: Injury kr3 occurred in the [facility], Injury occurred: at home. Injury occurred: July 11, 2022 Injury occurred at: 10:15. Triage Assessment: 11:34 General: Appears uncomfortable, slender, well groomed, well developed, Behavior is jh5 calm, cooperative, appropriate for age. Pain: Complains of pain in scalp, right arm and left arm. Trauma Activation: Alert Physician: ED Physician; Name: Diony; Notified At: 11:31; Arrived At: 11:31 Physician: General Surgeon; Name: ; Notified At: 11:31; Arrived At: Physician: Radiology; Name: CT personnel; Notified At: 11:31; Arrived At: 11:31 Physician: Respiratory; Name: ; Notified At: 11:31; Arrived At: Physician: Lab; Name: ; Notified At: 11:31; Arrived At: Historical: - Allergies: 11:34 No Known Allergies; jh6 - PMHx: 11:34 Atrial fibrillation; CHF; Hypertension; Hypothyroidism; pulmonary fibrosis; restless jh6 leg syndrome; - PSHx: 11:34 hysterectomy; Right hip replacement; jh6 - Immunization history:: Adult Immunizations up to date. - Social history:: Smoking status: Patient denies any tobacco usage or history of. - Immunization history: Last tetanus immunization: unknown. Screenin:07 Abuse screen: Denies threats or abuse. Nutritional screening: Difficulty kr3 chewing/swallowing? Yes. Tuberculosis screening: No symptoms or risk factors identified. Fall Risk Fall in past 12 months (25 points). Ambulatory Aid- Crutches/Cane/Walker (15 pts). Total Jacob Fall Scale indicates Low Risk Score (25-44 pts). Side Rails Up X 2 Family Present and informed to notify staff if they need to leave bedside. Primary Survey: 13:08 NO uncontrolled hemorrhage observed. A: The client is awake and alert. The airway is kr3 patent. Breathing/Chest: Spontaneous respiratory effort, equal unlabored respirations, breath sounds clear bilaterally, regular pattern, symmetrical chest rise and fall. Circulation: No external hemorrhage present. Regular and strong central pulse, skin warm/dry/normal color. Disability Client is alert. Exposure/Environment: A warming method has been applied: A warm blanket has been provided to the patient. 13:10 Reassessment Alertness and Airway: Awake and alert. The airway is patent. Breathing: kr3 Spontaneous respiratory effort, equal unlabored respirations, breath sounds clear bilaterally, regular pattern with symmetrical chest rise and fall. Circulation: No external hemorrhage noted. Regular and strong central pulse, skin warm/dry/normal color. Disability: Alert. Assessment: 12:30 General: Appears comfortable, slender, Behavior is calm, cooperative, appropriate for kr3 age. Derm: Skin is fragile, is thin, Wound noted bilateral upper arm and lower left arm. Vital Signs: 11:34 Resp 18; Temp 98.6; Pulse Ox 98% ; Weight 35.38 kg; Height 4 ft. 11 in. (149.86 cm); jh5 Pain 6/10; 12:30 BP 105 / 68; Pulse 69; Resp 16; Pulse Ox 99% on R/A; kr3 11:34 Body Mass Index 15.75 (35.38 kg, 149.86 cm) jh5 [place] Coma Score: 13:08 Eye Response: spontaneous(4). Verbal Response: oriented(5). Motor Response: obeys kr3 commands(6). Total: 15. Trauma Score (Adult): 13:08 Eye Response: spontaneous(1); Verbal Response: oriented(1); Motor Response: obeys kr3 commands(2); Systolic BP: > 89 mm Hg(4); Respiratory Rate: 10 to 29 per min(4); Tyler Score: 15; Trauma Score: 12 ED Course: 11:27 Patient arrived in ED. rg4 11:28 Harjit Jefferson MD is Private Physician. rg4 11:34 Arm band placed on Patient placed in an exam room, on a stretcher. jh6 11:38 Triage completed. jh5 11:38 Dallin Vora MD is Attending Physician. jr11 11:42 Kimberlyn Singh RN is Primary Nurse. kr3 11:54 CT Head C Spine In Process Unspecified. EDMS 12:16 Sacrum And Coccyx XRAY In Process Unspecified. EDMS 13:10 No provider procedures requiring assistance completed. Patient did not have IV access kr3 during this emergency room visit. 13:14 Bed in low position. Call light in reach. Side rails up X 1. kr3 13:14 Patient maintains SpO2 saturation greater than 95% on room air. kr3 13:15 Thermoregulation: warm blanket given to patient. 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 Exp: kr3 04/05/2024. Lot #: [id number]. } Route: IM; Site: left deltoid; 13:15 Follow up: Response: No adverse reaction kr3 Medication: 13:15 Vaccine Information Statement (VIS) provided today. Questions and/or concerns kr3 addressed. VIS edition date: February 16, 2024. Intake: 13:08 PO: 40ml (Water); Total: 40ml. kr3 Output: 13:08 Urine: 0ml; Total: 0ml. kr3 Outcome: 12:44 Discharge ordered by . 11 13:13 Discharged to home via wheelchair, with family. kr3 13:13 Condition: stable 13:13 Discharge instructions given to patient, family, Instructed on discharge instructions, follow up and referral plans. Demonstrated understanding of instructions, follow-up care. 13:14 Patient's length of stay was not longer than 2 hours. kr3 13:16 Patient left the ED. kr3 Signatures: Dispatcher [employer] EDMilvia Jaeger rg4 Gretta Dodge RN RN jh5 Delmy Hill RN RN jh6 Dallin Vora MD MD jr11 Kimberlyn Singh RN RN kr3 Corrections: (The following items were deleted from the chart) 12:09 11:34 Acuity: SENAIT 1 inderjit jansen
--- NOTE | 2022-07-11 12:45 | EDPHYS ---
Physician Documentation [facility] Name: Gabbie Rich Age: 76 yrs Sex: Female : 1945 Arrival Date: 07/11/2022 Time: 11:27 Bed 3 Private MD: Harjit Jefferson ED Physician Dallin Vora HPI: 07/11 11:41 This 76 yrs old Female presents to ER via Ambulatory with complaints of Fall Injury. jr11 11:41 Details of fall: The patient fell and struck a concrete surface, mechanical fall . jr11 Onset: The symptoms/episode began/occurred 30 minute(s) ago. Associated injuries: The patient sustained bilateral arms with laceration . Severity of symptoms: At their worst the symptoms were moderate, in the emergency department the symptoms are unchanged. fall on blood thinners . 11:41 Denies bony pain aside from sacrum . jr11 Historical: - Allergies: 11:34 No Known Allergies; jh6 - PMHx: 11:34 Atrial fibrillation; CHF; Hypertension; Hypothyroidism; pulmonary fibrosis; restless jh6 leg syndrome; - PSHx: 11:34 hysterectomy; Right hip replacement; 6 - Immunization history:: Adult Immunizations up to date. - Social history:: Smoking status: Patient denies any tobacco usage or history of. - Immunization history: Last tetanus immunization: unknown. ROS: 11:41 All other systems are negative. jr11 Exam: 11:41 Constitutional: This is a well developed, well nourished patient who is awake, alert, jr11 and in no acute distress. Head/Face: Normocephalic, atraumatic. Eyes: Extra-ocular motions intact. Lids and lashes normal. Conjunctiva and sclera are non-icteric and not injected. Cornea within normal limits. Periorbital areas with no swelling, redness, or edema. ENT: Nares patent. No nasal discharge, no septal abnormalities noted. Oropharynx with no redness, swelling, or masses, exudates, or evidence of obstruction, uvula midline. Mucous membranes moist. Neck: Trachea midline, no thyromegaly or masses palpated, and no cervical lymphadenopathy. Supple, full range of motion without nuchal rigidity, or vertebral point tenderness. No Meningismus. Chest/axilla: Normal chest wall appearance and motion. Nontender with no deformity. No lesions are appreciated. Cardiovascular: Regular rate and rhythm with a normal S1 and S2. No gallops, murmurs, or rubs. Normal PMI, no JVD. No pulse deficits. Respiratory: Lungs have equal breath sounds bilaterally, clear to auscultation and percussion. No rales, rhonchi or wheezes noted. No increased work of breathing, no retractions or nasal flaring. Skin: 2 skin tears per arm 3x5 cm Neuro: Awake and alert, GCS 15, oriented to person, place, time, and situation. No gross motor or sensory deficits. Vital Signs: 11:34 Resp 18; Temp 98.6; Pulse Ox 98% ; Weight 35.38 kg; Height 4 ft. 11 in. (149.86 cm); jh5 Pain 6/10; 12:30 BP 105 / 68; Pulse 69; Resp 16; Pulse Ox 99% on R/A; kr3 11:34 Body Mass Index 15.75 (35.38 kg, 149.86 cm) jh5 Tyler Coma Score: 13:08 Eye Response: spontaneous(4). Verbal Response: oriented(5). Motor Response: obeys kr3 commands(6). Total: 15. Trauma Score (Adult): 13:08 Eye Response: spontaneous(1); Verbal Response: oriented(1); Motor Response: obeys kr3 commands(2); Systolic BP: > 89 mm Hg(4); Respiratory Rate: 10 to 29 per min(4); Tyler Score: 15; Trauma Score: 12 MDM: 11:[address] [facility] 11:41 Differential diagnosis: abrasion, closed head injury, skin tear . Data reviewed: vital [facility] signs, nurses notes. 07/11 11:40 Order name: CT Head C Spine; Complete Time: 12:23 [facility] 07/11 11:40 Order name: Sacrum And Coccyx XRAY; Complete Time: 12:23 [facility] 07/11 11:41 Order name: Wound Care; Complete Time: 12:50 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 Exp: kr3 04/05/2024. Lot #: [id number]. } Route: IM; Site: left deltoid; 13:15 Follow up: Response: No adverse reaction kr3 Disposition Summary: 07/11/22 12:44 Discharge Ordered Location: Home [facility] Condition: Stable jr11 Diagnosis - Skin tear jr11 - Closed head injury jr11 Discharge Instructions: - Discharge Summary Sheet jr11 - Head Injury, Adult jr11 - Skin Tear jr11 Forms: - Medication Reconciliation Form jr11 - Thank You Letter jr11 - Antibiotic Education jr11 - Prescription Opioid Use jr11 Signatures: Dispatcher [employer] Gretta Kenny RN RN jh5 Delmy Hill RN RN jh6 Dallin Vora MD MD jr11 Kimberlyn Singh RN RN kr3
[2022-07-12 18:04] VITALS: TEMP 98.6
[2022-07-12 18:05] VITALS: BP 105/68; O2SAT 99
== END 2022-07-11 13:16 | disposition home or self-care (01) ==
LOC: ER 11:26
DX: S09.90XA Unspecified injury of head, initial encounter (principal); S41.112A Laceration without foreign body of left upper arm, initial encounter; S41.111A Laceration without foreign body of right upper arm, initial encounter; M54.50 Low back pain, unspecified; I10 Essential (primary) hypertension; Z23 Encounter for immunization
CPT/HCPCS: 70450; 72125; 72220; 90471; 90714; 99284

== ENCOUNTER 2022-08-05 06:59 | Emergency (ER) | payer OTHER ==
--- OUTSIDE RECORDS SUMMARY | 2022-08-05 07:02 | XMS REPORT | Continuity of Care Document ---
:1945 [address] [facility] t Address [address] [place] [address] Care Team Providers Name Role Phone AMAYA BONILLA Attending Clinician Unavailable Payers Payer Name Policy Type Policy Number Effective Date Expiration Date S clay [employer] MEDICARE ADV [id number] 2018 00:00:00 Problems This patient has no known problems. Allergies, Adverse Reactions, Alerts Allergy Allergy Status Severity Reaction(s) Onset Inactive Treating Comm ents Source Name Type Date Date Clinician NO KNOWN Drug Active [facility] ALLERGIE [facility] Medications This patient has no known medications. Procedures This patient has no known procedures. Encounters Start End Encounter Admission Attending Care Care Encounter Source Date/Time Date/Time Type Type Clinicians Facility Department ID 2021-01-06 2021-01-[address] [facility] [facility] [id number] [facility] 16:20:00 16:20:00 AMAYA [facility] 2021-01-06 2021-01-[address] [facility] [id number] [facility] 16:20:00 16:20:00 [id number] [facility] Results This patient has no known results.
--- NOTE | 2022-08-05 08:23 | RAD REPORT ---
EXAM DESCRIPTION: RAD - Chest Single View - 08/05/2022 7:32 am CLINICAL HISTORY: fall Chest pain. COMPARISON: Chest Pa And Lat (2 Views) dated 07/25/2022; Chest Single View dated 04/03/2022; Chest Si ngle View dated 03/21/2022; Chest Single View dated 03/17/2022 FINDINGS: Portable technique limits examination quality. The lungs are emphysematous but grossly clear. The heart is normal in size. No displaced fractures.Pr ominent scoliosis of the thoracolumbar spine. IMPRESSION: Significant COPD.
--- NOTE | 2022-08-05 08:24 | RAD REPORT ---
EXAM DESCRIPTION: CT - CTHCSPWOC - 08/05/2022 7:28 am CLINICAL HISTORY: Trauma, head and neck injury. fall, head injury, on eliquis COMPARISON: Head C Spine Mpr Wo Con dated 07/11/2022; C Spine Wo Con dated 11/01/2021; Head C Spine Mp r Wo Con dated 08/24/2017 TECHNIQUE: Axial 5 mm thick images of the head were obtained. Axial 2 mm thick images of the cervical spine were obtained with sagittal and coronal reconstruction images generated and reviewed. All CT scans are performed using dose optimization technique as appropriate and may include automated exposure control or mA/KV adjustment according to patient size. FINDINGS: CT HEAD WITHOUT CONTRAST: No acute hemorrhage, hydrocephalus or extra-axial collection is identified.Mild generalized brain atr ophy is present with mild periventricular and deep white matter chronic microvascular ischemic change s.No areas of brain edema or midline shift. The paranasal sinuses and mastoids are clear.The calvarium is intact. CT CERVICAL SPINE WITHOUT CONTRAST: No fracture or subluxation.There is advanced lower cervical degenerative change present, chronic. Chr onic 5 mm anterolisthesis of C3 on 4 is present.No prevertebral soft tissues swelling is identified. The odontoid is normal lateral masses are symmetric. IMPRESSION: No acute intracranial or cervical spine findings. Advanced lower cervical degenerative changes.
--- NOTE | 2022-08-05 08:25 | RAD REPORT ---
EXAM DESCRIPTION: RAD - Pelvis - 08/05/2022 7:32 am CLINICAL HISTORY: fall COMPARISON: No comparisons FINDINGS: Right total hip arthroplasty is noted. No hardware complication. Severe osteoarthritis lef t hip. No acute fracture or dislocation seen.
[2022-08-05] MEDS ORDERED: DERMABOND SKIN ADHESIVE TOP ONE (09:31)
--- NOTE | 2022-08-05 09:42 | ER ---
Nurse's Notes [facility] Name: Gabbie Rich Age: 77 yrs Sex: Female : 1945 Arrival Date: 08/05/2022 Time: 07:07 Bed 2 Private MD: Diagnosis: Laceration without foreign body of other part of head-Right jewish;Unspecified injury of head, initial encounter Presentation: 08/05 07:09 Chief complaint: Patient states: Slipped and fell onto right side, states hit head and vg1 Right side of body; pt appears to have skin tears to Right shoulder, elbow and hand. Also appears to have bruising to right side of forehead. Pt states on Eliquis and denies LOC. 07:11 Coronavirus screen: Vaccine status: Patient reports receiving the 2nd dose of the covid vg1 vaccine. Client denies travel out of the [place] in the last 14 days. Ebola Screen: Patient negative for fever greater than or equal to 101.5 degrees Fahrenheit, and additional compatible Ebola Virus Disease symptoms Patient denies exposure to infectious person. Initial Sepsis Screen: Does the patient meet any 2 criteria? No. Patient's initial sepsis screen is negative. Does the patient have a suspected source of infection? No. Patient's initial sepsis screen is negative. Risk Assessment: Do you want to hurt yourself or someone else? Patient reports no desire to harm self or others. Onset of symptoms was August 05, 2022. 07:11 Method Of Arrival: Wheelchair vg1 07:11 Acuity: SENAIT 2 vg1 07:26 Care prior to arrival: None. Mechanism of Injury: Fall from standing position. Trauma bp event details: Injury occurred in the [facility], Injury occurred: at home. Injury occurred: August 05, 2022 Injury occurred at: 04:30. Triage Assessment: 07:12 General: Appears in no apparent distress. uncomfortable, Behavior is calm, cooperative. vg1 Pain: Complains of pain in Right shoulder, right elbow, head. Neuro: Level of Consciousness is awake, alert, obeys commands, Oriented to person, place, time, situation. Derm: Skin is fragile, is thin, has skin tears on Right shoulder, right elbow, right hand. Musculoskeletal: Range of motion: limited in right elbow. Trauma Activation: Consult Physician: ED Physician; Name: ; Notified At: ; Arrived At: Physician: General Surgeon; Name: ; Notified At: ; Arrived At: Physician: Radiology; Name: ; Notified At: ; Arrived At: Physician: Respiratory; Name: ; Notified At: ; Arrived At: Physician: Lab; Name: ; Notified At: ; Arrived At: Historical: - Allergies: 07:12 No Known Allergies; vg1 - Home Meds: 07:12 Eliquis oral [Active]; vg1 - PMHx: 07:12 Atrial fibrillation; CHF; Hypertension; Hypothyroidism; pulmonary fibrosis; restless vg1 leg syndrome; - PSHx: 07:12 hysterectomy; Right hip replacement; vg1 - Immunization history:: Client reports receiving the 2nd dose of the Covid vaccine. - Social history:: Smoking status: Patient reports the use of cigarette tobacco products. - Immunization history: Last tetanus immunization: - up to date. - Family history:: not pertinent. - Hospitalizations: : No recent hospitalization is reported. Screenin:26 Abuse screen: Denies threats or abuse. Denies injuries from another. Tuberculosis bp screening: No symptoms or risk factors identified. 10:43 Nutritional screening: No deficits noted. Fall Risk Fall in past 12 months (25 points). bp No secondary diagnosis (0 pts). No IV (0 pts). Ambulatory Aid- Crutches/Cane/Walker (15 pts). Gait- Weak (10 pts.). Mental Status- Oriented to own ability (0 pts). Total Jacob Fall Scale indicates High Risk Score (45 or more points). Fall prevention measures have been instituted. Side Rails Up X 2 Placed Close to Nursing Station Frequent Obs/Assessments Occuring Family Present and informed to notify staff if the need to leave the bedside As available patient and family educated on Fall Prevention Program and Strategies. Primary Survey: 07:26 NO uncontrolled hemorrhage observed. A: The client is awake and alert. The airway is bp patent. The client is alert. Airway: patent. Breathing/Chest: Spontaneous respiratory effort, equal unlabored respirations, breath sounds clear bilaterally, regular pattern, symmetrical chest rise and fall. Respiratory effort: spontaneous, unlabored. Circulation: No external hemorrhage present. Regular and strong central pulse, skin warm/dry/normal color. Hemorrhage: No external hemorrhage noted. Pulses: palpable right radial artery and left radial artery. Disability Pupils are equal, round, reactive to light and accommodation. Client is alert. Exposure/Environment: All clothing and personal items were removed. Forensic evidence collection is not deemed to be indicated at this time. Items placed in patient belonging bag. There is no evidence of uncontrolled external bleeding. Obvious injury(ies) are noted at this time: SKIN TEAR R ELBOW, R SHOULDER, HEMATOMA R BROW. 10:46 Reassessment Breathing: Spontaneous respiratory effort, equal unlabored respirations, bp breath sounds clear bilaterally, regular pattern with symmetrical chest rise and fall. Assessment: 07:26 General: Appears in no apparent distress. uncomfortable, Behavior is cooperative, bp appropriate for age, anxious. Pain: Complains of pain in right arm. Neuro: Level of Consciousness is awake, alert, obeys commands, Oriented to Appropriate for age. EENT: No deficits noted. Cardiovascular: No deficits noted. Respiratory: No deficits noted. GI: No signs and/or symptoms were reported involving the gastrointestinal system. : No signs and/or symptoms were reported regarding the genitourinary system. Derm: No deficits noted. Musculoskeletal: No deficits noted. Injury Description: SKIN TEAR R SHOULDER, R ELBOW. 07:37 Reassessment: PT [facility]URN[facility] FROM [facility]. bp 10:02 Reassessment: DC ON HOLD FOR WOUND CARE. bp 10:43 Reassessment: PT DC HOME VIA WC WITH FAMILY. bp Vital Signs: 07:11 BP 110 / 68; Pulse 70; Resp 16; Temp 98.1; Pulse Ox 99% ; Weight 38.1 kg; Height 5 ft. vg1 0 in. (152.40 cm); 07:26 BP 110 / 68; Pulse 69; Resp 16; Temp 98; Pulse Ox 99% ; bp 07:37 BP 133 / 90; Pulse 73; Resp 16; Pulse Ox 98% ; bp 10:01 BP 109 / 73; Pulse 68; Resp 16; Pulse Ox 95% ; bp 07:11 Body Mass Index 16.40 (38.10 kg, 152.40 cm) vg1 [place] Coma Score: 07:26 Eye Response: spontaneous(4). Verbal Response: oriented(5). Motor Response: obeys bp commands(6). Total: 15. Trauma Score (Adult): 07:26 Eye Response: spontaneous(1); Verbal Response: oriented(1); Motor Response: obeys bp commands(2); Systolic BP: > 89 mm Hg(4); Respiratory Rate: 10 to 29 per min(4); [place] Score: 15; Trauma Score: 12 ED Course: 07:07 Patient arrived in ED. bd 07:10 Jordy Liu MD is Attending Physician. rn 07:12 Triage completed. vg1 07:12 Arm band placed on. vg1 07:25 Zachariah Headley, RN is Primary Nurse. bp 07:26 Patient has correct armband on for positive identification. Bed in low position. Call bp light in reach. Side rails up X2. 07:26 Patient maintains SpO2 saturation greater than 95% on room air. bp 07:30 Head C Spine Mpr Wo Con In Process Unspecified. EDMS 07:33 XRAY Chest (1 view) In Process Unspecified. EDMS 07:33 XRAY Pelvis In Process Unspecified. EDMS 10:43 No provider procedures requiring assistance completed. Patient did not have IV access bp during this emergency room visit. Wound care: to SKIN TEAR located on right arm and right elbow was cleaned with Hibiclens, dressed with Neosporin, Patient tolerated well. 10:46 Thermoregulation: warm blanket given to patient. bp Administered Medications: No medications were administered Medication: 10:43 VIS not applicable for this client. bp Intake: 10:46 PO: 0ml; Total: 0ml. bp Output: 10:46 Urine: 0ml; Total: 0ml. bp Outcome: 09:41 Discharge ordered by . rn 10:43 Discharged to home via wheelchair, with family. bp 10:43 Condition: stable 10:43 Discharge instructions given to patient, family, Instructed on discharge instructions, follow up and referral plans. wound care, Demonstrated understanding of instructions, follow-up care, wound care. 10:46 Patient's length of stay was not longer than 2 hours. bp 10:46 Patient left the ED. bp Signatures: Dispatcher [employer] EDMS Mora Ernandez Roman, MD MD rn Peltier, Brian, RN RN Edyta Abel, RN RN vg1
--- NOTE | 2022-08-05 09:42 | EDPHYS ---
Physician Documentation [facility] Name: Gabbie Rich Age: 77 yrs Sex: Female : 1945 Arrival Date: 08/05/2022 Time: 07:07 Bed 2 Private MD: ED Physician Jordy Liu HPI: 08/05 07:59 This 77 yrs old Female presents to ER via Wheelchair with complaints of Fall Injury. rn 07:59 Details of fall: The patient fell from an upright position, while standing. Onset: The rn symptoms/episode began/occurred just prior to arrival. Associated injuries: The patient sustained injury to the head. Severity of symptoms: At their worst the symptoms were mild, in the emergency department the symptoms are unchanged. The patient has experienced similar episodes in the past. The patient has not recently seen a physician. Pt reports standing, fell from standing, hit head, no LOC, takes eliquis. + skin tears to arms, remembers all events, no bony pain. + mild headache.. Historical: - Allergies: 07:12 No Known Allergies; vg1 - Home Meds: 07:12 Eliquis oral [Active]; vg1 - PMHx: 07:12 Atrial fibrillation; CHF; Hypertension; Hypothyroidism; pulmonary fibrosis; restless vg1 leg syndrome; - PSHx: 07:12 hysterectomy; Right hip replacement; vg1 - Immunization history:: Client reports receiving the 2nd dose of the Covid vaccine. - Social history:: Smoking status: Patient reports the use of cigarette tobacco products. - Immunization history: Last tetanus immunization: - up to date. - Family history:: not pertinent. - Hospitalizations: : No recent hospitalization is reported. ROS: 07:59 Constitutional: Negative for fever, chills, and weight loss, Eyes: Negative for injury, rn pain, redness, and discharge, Neck: Negative for injury, pain, and swelling, Cardiovascular: Negative for chest pain, palpitations, and edema, Respiratory: Negative for shortness of breath, cough, wheezing, and pleuritic chest pain, Abdomen/GI: Negative for abdominal pain, nausea, vomiting, diarrhea, and constipation, Back: Negative for injury and pain, MS/Extremity: Negative for injury and deformity, Skin: + skin tears Neuro: Negative for weakness, numbness, tingling, and seizure. Exam: 07:59 Constitutional: This is a well developed, well nourished patient who is awake, alert, rn and in no acute distress. Head/Face: + right frontal hematoma with 2 cm superficial laceration, no active bleeding Eyes: Periorbital areas with no swelling, redness, or edema. ENT: No oral trauma Neck: No midline cervical tenderness Chest/axilla: Normal chest wall appearance and motion. Nontender with no deformity. No lesions are appreciated. Cardiovascular: Regular rate and rhythm. No pulse deficits. Respiratory: No increased work of breathing, no retractions or nasal flaring. Abdomen/GI: Soft, non-tender Back: No spinal tenderness. No costovertebral tenderness. Full range of motion. Skin: Warm, dry, multiple moderate sized skin tears of bilateral upper extremities. MS/ Extremity: Pulses equal, no cyanosis. Neurovascular intact. Full, normal range of motion. Equal circumference. 3+ edema bilateral lower ext Neuro: Awake and alert, GCS 15, oriented to person, place, time, and situation. Cranial nerves II-XII grossly intact. Motor strength 5/5 in all extremities. Sensory grossly intact. Vital Signs: 07:11 BP 110 / 68; Pulse 70; Resp 16; Temp 98.1; Pulse Ox 99% ; Weight 38.1 kg; Height 5 ft. vg1 0 in. (152.40 cm); 07:26 BP 110 / 68; Pulse 69; Resp 16; Temp 98; Pulse Ox 99% ; bp 07:37 BP 133 / 90; Pulse 73; Resp 16; Pulse Ox 98% ; bp 10:01 BP 109 / 73; Pulse 68; Resp 16; Pulse Ox 95% ; bp 07:11 Body Mass Index 16.40 (38.10 kg, 152.40 cm) vg1 Tyler Coma Score: 07:26 Eye Response: spontaneous(4). Verbal Response: oriented(5). Motor Response: obeys bp commands(6). Total: 15. Trauma Score (Adult): 07:26 Eye Response: spontaneous(1); Verbal Response: oriented(1); Motor Response: obeys bp commands(2); Systolic BP: > 89 mm Hg(4); Respiratory Rate: 10 to 29 per min(4); Jeremiah Score: 15; Trauma Score: 12 Laceration: 09:37 Wound Repair of 2cm ( 0.8in ) subcutaneous laceration to right judaism. Distal rn neuro/vascular/tendon intact. Wound prep: Moderate cleansing with hibiclenz by me, Wound explored moderately. Skin closed with 1 thin layer Adhesive skin closure using Dermabond. Dressed with steri-strips. Patient tolerated well. MDM: 07:10 Patient medically screened. rn 09:37 Differential diagnosis: closed head injury, contusion, fracture, laceration, sprain, rn strain. Data reviewed: vital signs, nurses notes, radiologic studies, CT scan, plain films, and as a result, I will discharge patient. Counseling: I had a detailed discussion with the patient and/or guardian regarding: the historical points, exam findings, and any diagnostic results supporting the discharge/admit diagnosis, radiology results, the need for outpatient follow up, to return to the emergency department if symptoms worsen or persist or if there are any questions or concerns that arise at home. Response to treatment: the patient's symptoms have markedly improved after treatment, and as a result, I will discharge patient. Special discussion: I discussed with the patient/guardian in detail that at this point there is no indication for admission to the hospital. It is understood, however, that if the symptoms persist or worsen the patient needs to return immediately for re-evaluation. 08/05 07:11 Order name: CT Head C Spine rn 08/05 07:11 Order name: XRAY Chest (1 view); Complete Time: 08:41 rn 08/05 07:11 Order name: XRAY Pelvis; Complete Time: 08:41 rn 08/05 07:16 Order name: Head C Spine Mpr Wo Con; Complete Time: 08:41 EDMS Administered Medications: No medications were administered Disposition Summary: 08/05/22 09:41 Discharge Ordered Location: Home rn Problem: new rn Symptoms: have improved rn Condition: Stable rn Diagnosis - Laceration without foreign body of other part of head - Right judaism rn - Unspecified injury of head, initial encounter rn Followup: rn - With: Private Physician - When: As needed - Reason: Recheck today's complaints, Re-evaluation by your physician Discharge Instructions: - Discharge Summary Sheet rn - Head Injury, Adult rn - Hematoma rn - Facial Laceration rn Forms: - Medication Reconciliation Form rn - Thank You Letter rn - 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 Head/Face: + right frontal hematoma with small superficial linear abrasion, no active bleeding Eyes: Periorbital areas with no swelling, redness, or edema. ENT: No oral trauma Neck: No midline cervical tenderness Chest/axilla: Normal chest wall appearance and motion. Nontender with no deformity. No lesions are appreciated. Cardiovascular: Regular rate and rhythm. No pulse deficits. Respiratory: No increased work of breathing, no retractions or nasal flaring. Abdomen/GI: Soft, non-tender Back: No spinal tenderness. No costovertebral tenderness. Full range of motion. Skin: Warm, dry, multiple moderate sized skin tears of bilateral upper extremities. MS/ Extremity: Pulses equal, no cyanosis. Neurovascular intact. Full, normal range of motion. Equal circumference. 3+ edema bilateral lower ext Neuro: Awake and alert, GCS 15, oriented to person, place, time, and situation. Cranial nerves II-XII grossly intact. Motor strength 5/5 in all extremities. Sensory grossly intact. rn
[2022-08-05 10:58] VITALS: TEMP 98
[2022-08-05 11:00] VITALS: BP 109/73; O2SAT 95
== END 2022-08-05 10:46 | disposition home or self-care (01) ==
LOC: ER 06:59
PROC: 0JQ10ZZ Repair Face Subcutaneous Tissue and Fascia, Open Approach (ICD-10-PCS; principal; 2022-08-05)
DX: S01.81XA Laceration without foreign body of other part of head, initial encounter (principal); S09.90XA Unspecified injury of head, initial encounter; I10 Essential (primary) hypertension; I48.91 Unspecified atrial fibrillation; Z79.01 Long term (current) use of anticoagulants; Z72.0 Tobacco use
CPT/HCPCS: 70450; 71045; 72125; 72170; 99284

== ENCOUNTER 2022-10-07 13:45 | Inpatient (IN) | payer OTHER ==
--- OUTSIDE RECORDS SUMMARY | 2022-10-07 13:48 | XMS REPORT | Continuity of Care Document ---
:1945 Author Organization [facility] t Address [address] [place] [address] Care Team Providers Name Role Phone AMAYA BONILLA Attending Clinician Unavailable Payers Payer Name Policy Type Policy Number Effective Date Expiration Date S clay [employer] MED[employer]ARE ADV [id number] 00:00:00 Problems This patient has no known problems. Allergies, Adverse Reactions, Alerts Allergy Allergy Status Severity Reaction(s) Onset Inactive Treating Comm ents Source Name Type Date Date Clinician NO KNOWN Drug Active [facility] ALLERGIE Class [facility] Medications This patient has no known medications. Procedures This patient has no known procedures. Encounters Start End Encounter Admission Attending Care Care Encounter Source Date/Time Date/Time Type Type Clinicians Facility Department ID 2021-01-06 2021-01-06 Outpatient R CHAD WYREBECA [facility] [id number] [facility] 16:20:00 16:20:00 AMAYA [facility] 2021-01-06 2021-01-06 Outpatient R [facility] [id number] [facility] 16:20:00 16:20:00 [id number] [facility] Results This patient has no known results.
[2022-10-07] MEDS ORDERED: LORazepam 2 MG/ML VIAL IV PRN (14:15)
[2022-10-07] MEDS ORDERED: HALOPERIDOL LACT 5 MG/ML INJ IV PRN (14:15)
[2022-10-07] MEDS ORDERED: SCOPOLAMINE HYDROBROMIDE PATCH TD PRN (14:17)
[2022-10-07] MEDS: MORPHINE 2 MG/ML SYR IV PRN ×4 (15:01→21:49)
[2022-10-07 17:18] VITALS: BMI 15.5
[2022-10-08] MEDS: MORPHINE 2 MG/ML SYR IV PRN ×4 (01:46→22:43)
--- NOTE | 2022-10-08 06:07 | PN ---
The patient has markedly improved since late yesterday. She is afebrile. Her alertness and awareness have improved considerably, this is with the addition of the Solu-Medrol and one Lasix dose. She ta kes Lasix on a daily basis p.o. Appetite has improved somewhat. We will obtain a chest x-ray and jen cat she will need further care on the above-outlined regimen for another 48 to 72 hours. HR/MODL Voice ID: [id number] Report ID: [id number]
[2022-10-09] MEDS: MORPHINE 2 MG/ML SYR IV PRN (00:58)
[2022-10-09] MEDS ORDERED: MORPHINE 2 MG/ML SYR IV SCH (04:00)
[2022-10-09] MEDS: MORPHINE 2 MG/ML SYR IV SCH ×4 (06:04→12:00)
[2022-10-09 08:59] VITALS: BP 90/45; TEMP 101.2
[2022-10-09 09:40] VITALS: O2SAT 72
== END 2022-10-09 13:08 | disposition expired | DRG 951 ==
LOC: 2ND 13:45
PROVIDERS: ADMIT Internal Medicine Hematology & Oncology; ATTEND Internal Medicine Hematology & Oncology
DX: Z51.5 Encounter for palliative care (principal)
CPT/HCPCS: J2270